=== PATIENT | male | born 1945 | race Caucasian/White ===

== ENCOUNTER 2023-07-22 18:36 | Emergency (ER) | payer MEDICARE, OTHER, SELFPAY ==
[2023-07-22] VITALS (8 sets, daily range): BP systolic 92–116; BP diastolic 55–65; PULSE 66–87; RESP 18–24; O2SAT 98–100
--- NOTE | ~2023-07-22 | CT_ITS ---
EXAMINATION: CTA brain carotid DATE: 07/22/2023 19:52 INDICATION: Dysarthria. Ataxia. TECHNIQUE: Computed tomographic angiography (CTA) of the head was performed with 100 mL Omnipaque-350 intravenous contrast. CTA of the neck was performed with intravenous contrast. Automated exposure co ntrol and iterative reconstruction technique were employed. The dose-length product was 2193.71 mGy-c m. Maximum intensity projection and volume rendered 3D-reconstructions were created by the [employer] on a separate workstation. COMPARISON: Head CT 07/22/2023 FINDINGS: HEAD CTA: There are infarcts involving the right frontal, parietal, and occipital lobes and right ins wali. There is no intracranial hemorrhage or abnormal mass lesion. The ventricles are normal in size. There are likely changes of ocular lens replacement surgeries. There is mild mucosal thickening in th e ethmoid sinuses. The mastoid air cells are normal. Right vertebral artery is dominant. There is no significant stenosis of basilar artery or the posterior cerebral arteries. The posterior communicatin g arteries are normal. There is no significant stenosis of the intracranial internal carotid arteries or anterior or middle cerebral arteries. Anterior communicating artery is normal. There is no aneury sm. NECK CTA: There is mild scarring at the lung apices. There are no pathologically enlarged lymph nodes . There is no significant stenosis of the vertebral arteries. There is plaque in the proximal interna l carotid arteries. There is 0% stenosis of the proximal right internal carotid artery relative to no rmal distal artery lumen diameter (NASCET criteria). There is 0% stenosis of the proximal left physician internist al carotid artery relative to normal distal artery lumen diameter. There is severe cervical spondylos is. IMPRESSION: 1. Infarcts involving the right frontal, parietal, and occipital lobes and right insula in the expect ed distribution of right middle cerebral artery, likely acute or subacute. 2. No aneurysm or significant intracranial arterial stenosis. 3. 0% stenosis of the proximal internal carotid arteries relative to normal distal artery lumen diame ters (NASCET criteria). Reviewed, dictated and finalized at location E. IMPRESSION: 1. Infarcts involving the right frontal, parietal, and occipital lobes and righ t insula in the expected distribution of right middle cerebral artery, likely a cute or subacute. 2. No aneurysm or significant intracranial arterial stenosis. 3. 0% stenosis of the proximal internal carotid arteries relative to normal dis mani artery lumen diameters (NASCET criteria).
--- NOTE | ~2023-07-22 | CT_ITS ---
EXAMINATION: CT brain wo con DATE: 07/22/2023 18:49 INDICATION: Left-sided deficits. Cerebral vascular accident. TECHNIQUE: Computed tomography (CT) of the head was performed without intravenous contrast. The mA wa s adjusted according to patient size. Iterative reconstruction technique was employed. The dose-lengt h product was 681.00 mGy-cm. COMPARISON: None FINDINGS: There are infarcts involving the right frontal, parietal, and occipital lobes and right ins wali. There is no intracranial hemorrhage or abnormal mass lesion. The ventricles are normal in size. There are likely changes of ocular lens replacement surgeries. There is mild mucosal thickening ethmo id sinuses. The mastoid air cells are normal. IMPRESSION: 1. Infarcts involving the right frontal, parietal, and occipital lobes and right insula, likely acute or subacute. Reviewed, dictated and finalized at location E. IMPRESSION: 1. Infarcts involving the right frontal, parietal, and occipital lobes and righ t insula, likely acute or subacute.
--- NOTE | ~2023-07-22 | XR_ITS ---
EXAMINATION: XR chest 1V portable DATE: 07/22/2023 19:15 INDICATION: Cough and congestion. TECHNIQUE: A single frontal view of the chest was obtained. COMPARISON: None. FINDINGS: There is no pneumonia, pleural effusion, or pneumothorax. The heart size is normal. There i s an electronic implant overlying left chest wall. IMPRESSION: 1. No acute cardiopulmonary disease. Reviewed, dictated and finalized at location E.
--- NOTE | 2023-07-22 18:40 | ED.NEUROSD ---
HPI - Neuro Symptoms/Deficit General Chief Complaint: Suspected CVA Stated Complaint: CODE CVA Time Seen by Provider: 07/22/23 18:38 History of Present Illness HPI Narrative: Patient is a 77-year-old male presenting as code stroke. 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 He had left-sided deficits with residual dysarthria and he was discharged to acute rehab. Today he was noted to possibly have slightly worsened slurred speech and appeared unsteady while walking so EMS was called. On arrival, patient is A&O x4. His only complaint is nasal congestion. States that his speech sounds the same as it has since his stroke. Denies any new deficits. Denies any pain. Related Data Home Medications Medication Instructions Recorded Confirmed acetaminophen 325 mg tablet 325 mg PO PRN PRN Pain (Scale 07/19/23 07/23/23 (Tylenol) Score 4-6) aspirin 81 mg tablet 81 mg PO DAILY 07/23/23 07/23/23 atorvastatin 40 mg tablet 40 mg PO HS 07/23/23 07/23/23 cetirizine 10 mg tablet (Zyrtec) 10 mg PO DAILY 07/23/23 07/23/23 cyproheptadine 4 mg tablet 4 mg PO Q8H 07/23/23 07/23/23 enoxaparin 40 mg/0.4 mL 40 mg subcut DAILY 07/23/23 07/23/23 subcutaneous syringe (Lovenox) guaifenesin 200 mg/5 mL oral syrup 200 mg PO DAILY 07/23/23 07/23/23 hydroxyzine HCl 50 mg tablet 50 mg PO PRN 07/23/23 07/23/23 melatonin 3 mg tablet 3 mg PO HS 07/23/23 07/23/23 sennosides 8.6 mg-docusate sodium 1 tablet PO HS 07/23/23 07/23/23 50 mg tablet (Senna with Docusate Sodium) Allergies Allergy/AdvReac Type Severity Reaction Status Date / Time No Known Allergies Allergy Verified 07/24/23 11:29 Review of Systems Review of Systems: All systems reviewed & are unremarkable except as noted in HPI and below PMFSH Past Medical History Medical History (Updated 07/26/23 @ 08:47 by Carlitos Perez MD) Anemia CVA (cerebral vascular accident) Duodenal ulcer hemorrhage Social History Social History Smoking status: Never smoker Alcohol intake: unknown Drinks per week: 0 Substance use: unknown Substance use type: does not use Spiritual care concerns: No Exam Narrative: GENERAL: Well-appearing, in no acute distress. Pleasant and cooperative HEAD: Normocephalic, atraumatic. EYES: PERRLA and EOMI. ENT: Nares clear, no rhinorrhea or epistaxis. Mucous membranes moist. NECK: Supple. CHEST: No respiratory distress. HEART: Regular rate and rhythm ABDOMEN: Soft, nondistended EXTREMITIES: No edema. SKIN: Warm, dry, no rash. NEURO: Alert and oriented x4, left-sided facial droop present with slight dysarthria, 2 out of 5 strength left upper extremity, 5 out of 5 strength in all other extremities. PSYCH: Normal mood and affect. Course Vital Signs Vital signs: Vital Signs Pulse Rate 86 07/22/23 18:51 Respiratory Rate 18 07/22/23 18:51 Blood Pressure 92/62 L 07/22/23 18:51 Pulse Oximetry 100 07/22/23 18:51 Oxygen Delivery Room Air 07/22/23 18:51 Pulse Rate 80 07/22/23 22:59 Respiratory Rate 21 H 07/22/23 22:59 Blood Pressure 116/59 L 07/22/23 22:59 Pulse Oximetry 100 07/22/23 22:59 Oxygen Delivery Room Air 07/22/23 18:51 MDM - Neuro Symptoms/Deficit MDM Narrative Medical decision making narrative: Patient is a 77-year-old male presenting with possible worsening dysarthria in the setting of a recent stroke. Patient tells me that he does not notice any new deficits. States that his speech sounds the same as it has. He is alert, oriented x4. Responding appropriately. CT brain with subacute versus acute right parietal, frontal and occipital, right insular infarcts. I spoke with Dr. Roland with [facility] stroke department and he states that this is consistent with the imaging the patient had 3 days ago prior to discharge. States that what we are seeing is likely evolution o
[2023-07-22 19:22] LABS: Basophils Percent Auto 0.3 % (0.2-1.2); Eosinophils Absolute Auto 0.1 K/mm3 (0-0.3); Eosinophils Percent Auto 0.5 % (0-4.4); Hematocrit 38.1 % (42.0-52.0); Hemoglobin 12.5 g/dL (14.0-18.0); Immature Granulocyte Absolute 0.15 K/mm3 (0.00-0.031); Lymphocytes Absolute Auto 1.49 K/mm3 (0.9-3.2); Lymphocytes Percent Auto 10.2 % (18.3-44.2); Mean Corpuscular HGB Conc 32.8 g/dl (32-36); Mean Corpuscular Hemoglobin 32.3 pg (26-34); Mean Corpuscular Volume 98.4 fl (80-100); Mean Platelet Volume 9.7 fl (7.4-10.4); Monocytes Absolute Auto 1.2 K/mm3 (0.1-0.6); Monocytes Percent Auto 8.4 % (2.6-8.5); Neutrophils Absolute Auto 11.6 K/mm3 (1.3-6.7); Neutrophils Percent Auto 79.6 % (45.5-73.1); Platelet Count Result 322 k/mm3 (150-375); Red Blood Count 3.87 M/mm3 (4.6-6.20); Red Cell Distribution Width 11.8 % (11.5-14.5); White Blood Count 14.6 K/mm3 (4.5-10.0)
[2023-07-22 19:32] LABS: Alanine Aminotransferase 51 U/L (6-50); Albumin Level 3.1 g/dL (3.5-5.1); Alkaline Phosphatase 61 U/L (38-126); Anion Gap 8 mmol/L (8-16); Aspartate Amino Transferase 39 U/L (17-59); Bilirubin,Total 1.5 mg/dL (0.2-1.3); Blood Urea Nitrogen 46 mg/dL (9-20); Calcium 8.4 mg/dL (8.4-10.2); Carbon Dioxide 22 mmol/L (22-30); Chloride 104 mmol/L (98-107); Estimated CRCL calculation 74 ml/min; Estimated Glomerular Filt Rate > 60; Glucose 131 mg/dL (65-110); Potassium 4.6 mmol/L (3.4-5.0); Sodium 134 mmol/L (137-145)
[2023-07-22 19:55] LABS: Influenza A QL RT-PCR Negative (Negative); Influenza B QL RT-PCR Negative (Negative); RSV RNA, RT-PCR Negative (Negative); SARS-CoV-2 RNA PCR Negative (Negative)
[2023-07-22 20:43] LABS: Appearance Urine Clear (Clear); Bacteria Urine None Seen /hpf; Bilirubin Urine Negative (Negative); Blood Urine Negative (Negative); Color Urine Yellow (Yellow); Glucose Urine UA Negative (Negative); Hyaline Casts Urine Present /lpf; Ketones Urine Trace mg/dL (Negative); Leukocyte Esterase Ur Negative LEU/UL (Negative); Nitrate Urine Negative (Negative); Protein Urine 1+ mg/dL (Negative); Specific Grav Ur 1.056 (1.001-1.035); Squamous Epithelial Cell Urine None seen /hpf (Few); WBC Urine 0-5 /hpf
[2023-07-22 20:44] LABS: Add Urine Microscopic? YES
--- NOTE | 2023-07-22 23:06 | PC.NURSE ---
EMS arrived to transport pt, bedside report given. pt A&Ox4 during transport out of ED.
== END 2023-07-22 23:07 ==
PROVIDERS: Emergency Provider Emergency Medicine
DX: I63.9 Cerebral infarction, unspecified (principal); I69.322 Dysarthria following cerebral infarction; Z20.822 Contact with and (suspected) exposure to COVID-19
CPT/HCPCS: 36415; 70450; 70496; 70498; 71045; 80053; 81001; 85025; 87637; 99284; Q9967

== ENCOUNTER 2023-07-23 15:01 | Inpatient (IN) | payer MEDICARE, OTHER, SELFPAY ==
[2023-07-23] VITALS (9 sets, daily range): BP systolic 73–127; BP diastolic 44–66; PULSE 75–95; RESP 16–24; TEMP 36.2–36.6; O2SAT 98–100; BMI 25.9
--- NOTE | ~2023-07-23 | US_ITS ---
EXAMINATION: US carotid duplex BI DATE: 07/24/2023 00:17 INDICATION: Syncope TECHNIQUE: Grayscale, color Doppler, and pulsed Doppler images of the cervical carotid arteries were obtained. The degree of vessel stenosis is placed in one of the following categories: normal, <50%, 5 0-69%, >=70% but less than near-occlusion, near-occlusion, or total occlusion. Note that percent sten osis relative to normal distal artery lumen diameter is indirectly measured from velocity measurement s as described by Victor Manuel, et al. Radiology 2003; 229:340-346. COMPARISON: None. FINDINGS: RIGHT: The right common carotid artery (CCA) peak systolic velocity (PSV) is 105 cm/s. The right internal ca rotid artery (ICA) PSV is 118 cm/s. The right ICA end-diastolic velocity (EDV) is 35 cm/s. The right ICA/CCA PSV ratio is 1.1. Grayscale and color Doppler images yield an estimate of <50% diameter reduc tion from plaque in the ICA. The external carotid artery (ECA) PSV is 79 cm/s. There is antegrade ken w in the right vertebral artery. LEFT: The left CCA PSV is 95 cm/s. The left ICA PSV is 100 cm/s. The left ICA EDV is 24 cm/s. The left ICA/ CCA PSV ratio is 1.1. Grayscale and color Doppler images yield an estimate of <50% diameter reduction from plaque in the ICA. The ECA PSV is 77 cm/s. There is antegrade flow in the left vertebral artery . IMPRESSION: 1. <50% stenosis in the right internal carotid artery. 2. <50% stenosis in the left internal carotid artery. Reviewed, dictated and finalized at location A.
--- NOTE | 2023-07-23 15:15 | ECG_ITS ---
Measurements Intervals [place] Rate: 96 P: 61 LA: 126 QRS: 36 QRSD: 87 T: 64 QT: 362 QTc: 457 Interpretive Statements SINUS RHYTHM NONSPECIFIC ST & T-WAVE ABNORMALITY ABNORMAL ECG NO PREVIOUS ECG AVAILABLE FOR COMPARISON Electronically Signed On 07-24-2023 9:13:44 CDT by Rosalio Nicolas M.D.
[2023-07-23 15:35] LABS: Basophils Absolute Auto 0.1 K/mm3 (0.0-0.1); Basophils Percent Auto 0.3 % (0.2-1.2); Eosinophils Percent Auto 0.1 % (0-4.4); Hematocrit 25.4 % (42.0-52.0); Hemoglobin 8.5 g/dL (14.0-18.0); Immature Granulocyte Absolute 0.32 K/mm3 (0.00-0.031); Immature Granulocyte Percent A 1.7 % (0-0.5); Lymphocytes Absolute Auto 1.49 K/mm3 (0.9-3.2); Lymphocytes Percent Auto 7.9 % (18.3-44.2); Mean Corpuscular HGB Conc 33.5 g/dl (32-36); Mean Corpuscular Hemoglobin 33.2 pg (26-34); Mean Corpuscular Volume 99.2 fl (80-100); Mean Platelet Volume 9.5 fl (7.4-10.4); Monocytes Percent Auto 5.2 % (2.6-8.5); Neutrophils Absolute Auto 15.9 K/mm3 (1.3-6.7); Neutrophils Percent Auto 84.8 % (45.5-73.1); Platelet Count Result 367 k/mm3 (150-375); Red Blood Count 2.56 M/mm3 (4.6-6.20); Red Cell Distribution Width 11.9 % (11.5-14.5); White Blood Count 18.8 K/mm3 (4.5-10.0)
[2023-07-23 15:45] LABS: INR 1.2; Prothrombin Time 15.9 Seconds (11.1-14.7)
--- NOTE | 2023-07-23 15:45 | PC.NURSE ---
Dr. Bonilla informed of hypotension. IV fluids connected to pressure bag,pt placed in [place]
[2023-07-23 15:46] LABS: Partial Thromboplastin Time 29.3 SECONDS (22.3-36.8)
--- NOTE | 2023-07-23 15:52 | ED.GIBLEED ---
HPI - GI Bleed General Chief complaint: GI Bleed Stated complaint: syncopal, gi bleed Time Seen by Provider: 07/23/23 15:22 Source: patient, EMS, RN notes reviewed and old records reviewed Mode of arrival: EMS History of Present Illness HPI Narrative: This is a 77 year old male with history of recent left hemiplegic CVA [facility]. Nursing reports patient has been having syncopal episodes today . He was found to have black tarry stools this afternoon. Nursing reports patient had large dark blood stool on arrival. Patient denies chest pain, shortness of breath, abdominal pain. Related Data Home Medications Medication Instructions Recorded Confirmed acetaminophen 325 mg tablet 325 mg PO PRN PRN Pain (Scale 07/19/23 07/23/23 (Tylenol) Score 4-6) aspirin 81 mg tablet 81 mg PO DAILY 07/23/23 07/23/23 atorvastatin 40 mg tablet 40 mg PO HS 07/23/23 07/23/23 cetirizine 10 mg tablet (Zyrtec) 10 mg PO DAILY 07/23/23 07/23/23 cyproheptadine 4 mg tablet 4 mg PO Q8H 07/23/23 07/23/23 enoxaparin 40 mg/0.4 mL 40 mg subcut DAILY 07/23/23 07/23/23 subcutaneous syringe (Lovenox) guaifenesin 200 mg/5 mL oral syrup 200 mg PO DAILY 07/23/23 07/23/23 hydroxyzine HCl 50 mg tablet 50 mg PO PRN 07/23/23 07/23/23 melatonin 3 mg tablet 3 mg PO HS 07/23/23 07/23/23 sennosides 8.6 mg-docusate sodium 1 tablet PO HS 07/23/23 07/23/23 50 mg tablet (Senna with Docusate Sodium) Allergies Allergy/AdvReac Type Severity Reaction Status Date / Time No Known Allergies Allergy Verified 07/22/23 19:02 Review of Systems Constitutional: Constitutional: Denies weakness Cardiovascular: Cardiovascular: Denies syncope, Denies rapid heart rate, Denies irregular heart rhythm, Denies leg edema and Denies dyspnea Respiratory: Respiratory: Denies chest congestion, Denies hemoptysis, Denies excessive phlegm production and Denies dyspnea Gastrointestinal: Gastrointestinal: Denies abdominal pain, Reports hematochezia, Denies diarrhea and Denies vomiting Genitourinary: Genitourinary: Denies hematuria, Denies dysuria, Denies penile discharge and Denies testicular pain Musculoskeletal: Musculoskeletal: Denies joint swelling, Denies loss of height and Denies muscle weakness Neurologic: Denies syncope, Denies focal weakness and Denies weakness PMFSH Past Medical History Medical History (Updated 07/23/23 @ 22:33 by Talisha Bonilla MD) Anemia CVA (cerebral vascular accident) Social History Social History Smoking status: Never smoker Alcohol intake: unknown Drinks per week: 0 Substance use: unknown Substance use type: does not use Spiritual care concerns: No Exam Const: General: alert and ill appearing Orientation/consciousness: patient oriented x3 HENMT: Head: normal to inspection Eyes: EOM: EOMs intact bilaterally Chest: Other: left chest ecchymosis Resp: Effort & Inspection: normal respiratory effort Auscultation: clear to auscultation bilaterally Cardio: Rate: regular rate Rhythm: regular rhythm Heart sounds: Murmur heart sound present GI: Other: soft, nontender, nondistended Skin: General skin exam: pallor Neuro: General: patient oriented x3 and moves all extremities Other: speech slurred. left side weakness Psych: Mental Status: mental status grossly normal Affect: normal affect Attitude: cooperative Course Consultations Consultation #1: Dr Perez accepts patient to ICU Date: 07/23/23 Time: 16:20 Consultation #2: I spoke with Dr. carl with GI. He states to make patient NPO. I discussed if abdominal imaging would be beneficial . he did not think imaging needed at this time Date: 07/23/23 Time: 16:30 Consultation #3: I discussed case with Dr. figueroa with hospitalist. He accepts patient to service in ICU for GI bleeding Date: 07/23/23 Time: 16:45 Vital Signs Vital s
[2023-07-23 15:55] LABS: Alanine Aminotransferase 37 U/L (6-50); Albumin Level 2.5 g/dL (3.5-5.1); Alkaline Phosphatase 52 U/L (38-126); Anion Gap 8 mmol/L (8-16); Aspartate Amino Transferase 28 U/L (17-59); Bilirubin,Total 1.1 mg/dL (0.2-1.3); Blood Urea Nitrogen 59 mg/dL (9-20); Calcium 8.1 mg/dL (8.4-10.2); Carbon Dioxide 22 mmol/L (22-30); Chloride 105 mmol/L (98-107); Estimated CRCL calculation 66 ml/min; Estimated Glomerular Filt Rate > 60; Glucose 148 mg/dL (65-110); Potassium 4.6 mmol/L (3.4-5.0); Sodium 135 mmol/L (137-145)
[2023-07-23] MEDS: SODIUM CHLORIDE 0.9% IV 1,000 ML 999 ML IV CONT ×2 (15:58→17:39)
[2023-07-23] MEDS: PANTOPRAZOLE SODIUM IV 80 MG in SODIUM CHLORIDE 0.9% IV 500 ML 50 MG IV CONT (15:59)
[2023-07-23] MEDS: PANTOPRAZOLE SODIUM IV 40 MG VIAL 80 MG IV PUSH (16:00)
[2023-07-23 16:04] LABS: Alveolar/Arterial O2 Gradient 14.6 mmHg; Base Excess ABG -1.9 mEq/l (+/-2.0); Carboxyhemoglobin 0.5 % THb (0-2.0); Fractional Inspired Oxygen 21 %; HCO3 ABG 21.3 mEq/l (22.0-26.0); Methemoglobin ABG 0.2 %THb (0-1.5); Oxygen Content ABG 10.7 %vol (16.0-22.0); Oxyhemoglobin 96.1 % THb (90.0-100.0); PCO2 ABG 29.5 mmHg (35.0-45.0); PO2 ABG 99.8 mmHg (80.0-100.0); PO2 FiO2 Ratio Arterial Blood 4.75 %; Reduced Hemoglobin 3.2 %THb (0-5.0); pH ABG 7.476 (7.350-7.450)
[2023-07-23 16:06] LABS: Device ROOM AIR; Modified Allen's Test Pass; Site Drawn LEFT BRACHIAL; Total Hemoglobin 7.8 g/dL (12.0-18.0)
--- NOTE | 2023-07-23 16:45 | PC.NURSE ---
O Negative PRBC infusing without difficulty. Pt states to RN I'm No Code, don't put any tubes in me Dr. Bonilla informed.
--- NOTE | 2023-07-23 18:08 | PC.NURSE ---
[facility] spoke with pts
--- NOTE | 2023-07-23 19:00 | PM.IMHP ---
H&P: HPI History of Present Illness Date/Time: 07/23/23 19:00 Chief Complaint: Black stools Narrative: Patient is a poor historian, history is taken from patient and ER physician 77 years old gentleman with history of CVA with residual left-sided weakness slurred speech, per ED from rehab because of black stools. Per residential report, patient was found have black stools today and also had episode of syncope. And therefore patient was brought to ED for evaluation. In the ED, nurse found patient had a large black stool, and patient was hypotensive, systolic blood pressure about 40, and patient was also found have anemia, hemoglobin 8.5, hemoglobin 12.5 on July 22 and 13.6 on July 20, 2023. Patient will also have hyponatremia of 134, BUN 59, creatinine 1.0. Patient received fluid resuscitation in the ED. patient also received Protonix bolus and a drip. One pack RBC is ordered. ER physician also consulted GI and manager human resources, patient is admitted to ICU for close monitoring. Review of Systems Review of Systems: ROS negative except above PMFSH Past Medical History Medical History (Updated 07/23/23 @ 22:33 by Talisha Bonilla MD) Anemia CVA (cerebral vascular accident) Social History Social History Smoking status: Never smoker Alcohol intake: former Drinks per week: 0 Substance use type: does not use Spiritual care concerns: No Meds Home Medications and Allergies Home Medications Medication Instructions Recorded Confirmed Type acetaminophen 325 mg tablet 325 mg PO PRN PRN Pain (Scale 07/19/23 07/23/23 History (Tylenol) Score 4-6) aspirin 81 mg tablet 81 mg PO DAILY 07/23/23 07/23/23 History atorvastatin 40 mg tablet 40 mg PO HS 07/23/23 07/23/23 History cetirizine 10 mg tablet (Zyrtec) 10 mg PO DAILY 07/23/23 07/23/23 History cyproheptadine 4 mg tablet 4 mg PO Q8H 07/23/23 07/23/23 History enoxaparin 40 mg/0.4 mL 40 mg subcut DAILY 07/23/23 07/23/23 History subcutaneous syringe (Lovenox) guaifenesin 200 mg/5 mL oral syrup 200 mg PO DAILY 07/23/23 07/23/23 History hydroxyzine HCl 50 mg tablet 50 mg PO PRN 07/23/23 07/23/23 History melatonin 3 mg tablet 3 mg PO HS 07/23/23 07/23/23 History sennosides 8.6 mg-docusate sodium 1 tablet PO HS 07/23/23 07/23/23 History 50 mg tablet (Senna with Docusate Sodium) Allergies Allergy/AdvReac Type Severity Reaction Status Date / Time No Known Allergies Allergy Verified 07/22/23 19:02 Vital Signs Vital Signs - 24 hr 07/23/23 15:17 07/23/23 15:43 07/23/23 16:34 Temperature 97.5 F L 97.1 F L 97.1 F L Pulse Rate 95 95 86 Respiratory Rate 24 H 23 H 18 Blood Pressure 73/44 L 77/44 L 106/66 Pulse Oximetry 98 Oxygen Delivery Room Air 07/23/23 16:58 07/23/23 16:59 07/23/23 17:59 Temperature 97.7 F 97.7 F 97.9 F Pulse Rate 92 92 85 Respiratory Rate 18 18 16 Blood Pressure 87/52 L 87/52 L 127/62 Pulse Oximetry 100 100 98 Oxygen Delivery 07/23/23 18:06 Temperature 97.8 F Pulse Rate 83 Respiratory Rate 20 Blood Pressure 127/62 Pulse Oximetry 98 Oxygen Delivery Exam Narrative: GENERAL: Pleasant, in no acute distress. Well-nourished. - EYES: EOMI. Anicteric. - HENT: Dry mucous membranes. - LUNGS: Clear to auscultation bilaterally, no wheezing, rhonchi, or rales. - CARDIOVASCULAR: Regular rate and rhythm. No murmur. No JVD. - ABDOMEN: Soft, non-tender and non-distended. No palpable masses. - EXTREMITIES: No edema. Peripheral pulses 2+. Non-tender. - NEUROLOGIC: No focal neurological deficits. Slurred speech due to Jennifer CVA, stress 4/5 of left hand and leg. - PSYCHIATRIC: Awake, Alert and oriented x 3. Appropriate mood and affect. - SKIN: No rashes or lesions. Warm. - LYMPH: No cervical lymphadenopathy. H&P: Results Labs Labs: Short CBC 07/23/23 Range/Units 15:27 WBC 18.8 H (4.5-10.0) K/mm3 Hgb 8.5 L (14.0-18.0) g
[2023-07-23 20:30] LABS: Hematocrit 30.4 % (42.0-52.0); Hemoglobin 9.8 g/dL (14.0-18.0)
[2023-07-23 20:37] LABS: Basophils Absolute Auto 0.1 K/mm3 (0.0-0.1); Basophils Percent Auto 0.3 % (0.2-1.2); Hematocrit 30.7 % (42.0-52.0); Hemoglobin 9.8 g/dL (14.0-18.0); Immature Granulocyte Absolute 0.22 K/mm3 (0.00-0.031); Immature Granulocyte Percent A 1.1 % (0-0.5); Lymphocytes Absolute Auto 1.58 K/mm3 (0.9-3.2); Lymphocytes Percent Auto 7.7 % (18.3-44.2); Mean Corpuscular HGB Conc 31.9 g/dl (32-36); Mean Corpuscular Hemoglobin 32.5 pg (26-34); Mean Corpuscular Volume 101.7 fl (80-100); Mean Platelet Volume 9.6 fl (7.4-10.4); Monocytes Absolute Auto 1.1 K/mm3 (0.1-0.6); Monocytes Percent Auto 5.5 % (2.6-8.5); Neutrophils Absolute Auto 17.6 K/mm3 (1.3-6.7); Neutrophils Percent Auto 85.4 % (45.5-73.1); Platelet Count Result 267 k/mm3 (150-375); Red Blood Count 3.02 M/mm3 (4.6-6.20); Red Cell Distribution Width 13.2 % (11.5-14.5); White Blood Count 20.6 K/mm3 (4.5-10.0)
[2023-07-23 20:55] LABS: Anisocytosis 1+ (NORMAL); Schistocytes None Seen (NORMAL)
[2023-07-23 20:56] LABS: Burr Cells 1+ (NORMAL); Platelet Estimate Adequate (Adequate)
[2023-07-23 21:28] LABS: Anion Gap 12 mmol/L (8-16); Blood Urea Nitrogen 62 mg/dL (9-20); Carbon Dioxide 16 mmol/L (22-30); Chloride 108 mmol/L (98-107); Estimated CRCL calculation 74 ml/min; Estimated Glomerular Filt Rate > 60; Glucose 91 mg/dL (65-110); Potassium 4.8 mmol/L (3.4-5.0); Sodium 136 mmol/L (137-145)
[2023-07-23] MEDS: ACETAMINOPHEN 325 MG TABLET 650 MG PO (22:26)
[2023-07-24] VITALS (21 sets, daily range): BP systolic 78–116; BP diastolic 40–63; PULSE 57–78; RESP 18–29; TEMP 36.3–37; O2SAT 96–100
[2023-07-24 01:54] LABS: Hematocrit 25.4 % (42.0-52.0); Hemoglobin 8.5 g/dL (14.0-18.0)
[2023-07-24 02:06] LABS: Alanine Aminotransferase 38 U/L (6-50); Albumin Level 2.6 g/dL (3.5-5.1); Alkaline Phosphatase 51 U/L (38-126); Anion Gap 6 mmol/L (8-16); Aspartate Amino Transferase 31 U/L (17-59); Bilirubin,Total 1.4 mg/dL (0.2-1.3); Blood Urea Nitrogen 58 mg/dL (9-20); Calcium 7.9 mg/dL (8.4-10.2); Carbon Dioxide 23 mmol/L (22-30); Chloride 108 mmol/L (98-107); Estimated CRCL calculation 74 ml/min; Estimated Glomerular Filt Rate > 60; Glucose 107 mg/dL (65-110); Potassium 4.3 mmol/L (3.4-5.0); Sodium 137 mmol/L (137-145)
[2023-07-24] MEDS: PANTOPRAZOLE SODIUM IV 80 MG in SODIUM CHLORIDE 0.9% IV 500 ML 50 MG IV CONT ×2 (03:47→15:43)
--- NOTE | 2023-07-24 08:00 | ECHO_ITS ---
Patient Info Name: Edilberto Ellison Age: 77 years : 1945 Gender: Male Ht: 71 in Wt: 179 lbs BSA: 2.02 m2 HR: 66 bpm BP: 102 / 54 mmHg Heart Rhythm: Sinus Rhythm Technical Quality: Fair Exam Date: 07/24/2023 8:18 AM Exam Location: [facility] Pulmonary Patient Status: Inpatient Admit Date: 07/23/2023 Staff Ordering Physician: Brandyn Healy MD Electrical Line Splicer: Diamante Devi RDCS Attending Provider: Kalia Miller MD Exam Type: CA echo dop color flow w con Study Info Indications - dizziness Complete two-dimensional, color flow and Doppler transthoracic echocardiogram is performed with contrast to opacify the left ventricle and to improve the deliniation of the left ventricle endocardial borders. Contrast/Agitated Saline Contrast/Ag. Saline: Definity Amount: 2.00 ml Administered By: Diamante Devi RDCS Existing IV Access: Yes IV Access Condition: patent with no signs of infiltration Summary 1. Left ventricular chamber dimension is normal. 2. There is mildly increased left ventricular wall thickness. 3. Left ventricular systolic function is hyperdynamic, estimated at 65-70%. 4. The left ventricular diastolic function is grade I diastolic dysfunction. 5. There is mild tricuspid valve regurgitation. Left Ventricle Left ventricular chamber dimension is normal. Left ventricular systolic function is hyperdynamic, estimated at 65-70%. There is mildly increased left ventricular wall thickness. The left ventricular diastolic function is grade I diastolic dysfunction. Right Ventricle Right ventricular chamber dimension is normal. Right ventricular systolic function is normal. Left Atria Left atrial chamber dimension is normal. Right Atria Right atrial chamber dimension is normal. Atrial Septum Intact interatrial septum visualized by color flow imaging. Aortic Valve The aortic valve is probable trileaflet. There is mild aortic valve sclerosis. There is no aortic valve stenosis. There is trace aortic valve regurgitation. Pulmonic Valve The pulmonic valve is normal. There is no pulmonic valve stenosis. There is trace pulmonic regurgitation. Mitral Valve The mitral valve has thickened leaflets. There is no mitral valve stenosis. There is trace mitral valve regurgitation. Tricuspid Valve The tricuspid valve leaflets are normal. There is no significant tricuspid valve stenosis. There is mild tricuspid valve regurgitation. No pulmonary hypertension, estimated pulmonary arterial systolic pressure is 27 mmHg. Pericardium/Pleural The pericardium appears normal. There is no pericardial effusion. Aorta The aortic root size at the sinus of Valsalva is normal. Left Ventricular Outflow Tract Name Value Normal LVOT 2D LVOT Diameter 2.01 cm LVOT Doppler LVOT Peak Gradient 4 mmHg LVOT Mean Gradient 2 mmHg LVOT VTI 17.16 cm LVOT VTI/AV VTI Ratio 0.99 LVOT Stroke Volume 54.52 ml LVOT CO 3.76 l/min LVOT CI 1.86 L/min/m2 Pul
[2023-07-24 08:43] LABS: Hematocrit 22.4 % (42.0-52.0); Hemoglobin 7.6 g/dL (14.0-18.0); Mean Corpuscular HGB Conc 33.9 g/dl (32-36); Mean Corpuscular Hemoglobin 32.8 pg (26-34); Mean Corpuscular Volume 96.6 fl (80-100); Mean Platelet Volume 9.4 fl (7.4-10.4); Platelet Count Result 257 k/mm3 (150-375); Red Blood Count 2.32 M/mm3 (4.6-6.20); Red Cell Distribution Width 13.4 % (11.5-14.5); White Blood Count 14.7 K/mm3 (4.5-10.0)
[2023-07-24] MEDS: PERFLUTREN LIPID MICROSPHERES 1.5 ML VIAL DILUTED TO 10 ML TOTAL VOLUME IV PUSH (08:50)
--- NOTE | 2023-07-24 09:00 | WPDCNINT ---
Assessment and Plan Assessment and plan (1) Upper GI bleed: Code(s): K92.2 - Gastrointestinal hemorrhage, unspecified Status: Acute Assessment and Plan: I suspect secondary to peptic ulcer disease or gastritis or Michelle-Wheatley tear Patient is currently NPO and GI has been consulted and plan for EGD today He has received 1 unit of PRBC transfusion Continue q.6 hours serial hemoglobin monitoring and transfuse as needed Continue PPI infusion until EGD is done Aspirin and Lovenox has been discontinued (2) Anemia: Code(s): D64.9 - Anemia, unspecified Status: Acute Assessment and Plan: Secondary to upper GI bleed Management as above patient is also receiving iron (3) CVA (cerebral vascular accident): Code(s): I63.9 - Cerebral infarction, unspecified Status: Acute Assessment and Plan: Patient had a recent CVA on 07/13 and 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 Patient was treated at [facility] and was then discharged to [facility] where he has been working with physical therapy. Patient has been on aspirin which has been on hold this time due to GI bleed He is on statin Repeat echo and carotid Dopplers were ordered at the time of admission are being done (4) Hypotension: Code(s): I95.9 - Hypotension, unspecified Status: Acute Assessment and Plan: Patient had hypotension on arrival likely secondary to volume loss. Improved with IV fluids Monitor (5) Syncope: Code(s): R55 - Syncope and collapse Status: Acute Assessment and Plan: Although etiology is not fully clear I but I suspect that patient's syncope was likely secondary to GI bleed and hypotension No recurrence since coming to hospital Carotid Dopplers were done this morning and showed IMPRESSION: 1. <50% stenosis in the right internal carotid artery. 2. <50% stenosis in the left internal carotid artery. Echo has been done and report is pending EKG shows normal sinus rhythm and currently he is in sinus rhythm Continue telemetry monitoring PT evaluation once GI bleeding has been managed Plan DVT prophylaxis -SCDs Stress ulcer prophylaxis -PPI Nutrition -NPO Code Status -patient is DNR Total Critical Care Time - 30 minutes Due to a high probability of clinically significant, life threatening deterioration, the patient required my highest level of preparedness to intervene emergently and I personally spent this critical care time directly and personally managing the patient. This critical care time included obtaining a history; examining the patient; pulse oximetry; ordering and review of studies; arranging urgent treatment with development of a management plan; evaluation of patient's response to treatment; frequent reassessment; and discussions with other providers. It was exclusive of separately billable procedures and treating other patients and teaching time. Please see Assessment and Plan section and the rest of the note for further information on patient assessment and treatment Patient Intake Representative Consult Note Consult date: 07/24/23 Reason for consult: GI bleed HPI: Edilberto Ellison is a 77 year old male with history of recent CVA with residual left-sided weakness slurred speech who was at rehab and was brought to ER because of black stools. Per correction report, patient was found have black stools today and also had episode of syncope.? In the ED, nurse found patient had a large black bowel movement, and patient was hypotensive. Workup showed hemoglobin had dropped to 8.5 from 12.5 on July 22 and 13.6 on July 20, 2023.? Patient will also have hyponatremia of 134, BUN 59, creatinine 1.0.? Patient was given IV fluid bolus in the ED with improvement in blood pressure. He was diagnosed with GI bleed and was given 1 unit PRBC transfusion. GI was consulted and patient was sta
[2023-07-24] MEDS: DEXTROSE 5%/LACTATED RINGERS 1,000 ML 75 ML IV CONT (09:09)
[2023-07-24] MEDS: IRON SUCROSE COMPLEX 100 MG in SODIUM CHLORIDE 0.9% IV 50 ML 220 MG IVPB (09:09)
--- NOTE | 2023-07-24 09:52 | PM.IMPN ---
Progress Note: A&P Assessment and Plan (1) Upper GI bleed: Code(s): K92.2 - Gastrointestinal hemorrhage, unspecified Status: Acute Assessment and Plan: Today's hemoglobin is 7.6 Patient is currently NPO and GI has been consulted and plan for EGD today He has received 1 unit of PRBC transfusion Continue q.6 hours serial hemoglobin monitoring and transfuse as needed Continue PPI infusion until EGD is done Aspirin and Lovenox has been discontinued (2) Anemia: Code(s): D64.9 - Anemia, unspecified Status: Acute Assessment and Plan: Today's hemoglobin is 7.6. Secondary to upper GI bleed Management as above patient is also receiving iron Will monitor closely. 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 Patient was treated at [facility] He was then discharged to [facility] Patient has been on aspirin which has been on hold this time due to GI bleed He is on statin Echo and carotid Dopplers are being done (4) Hypotension: Code(s): I95.9 - Hypotension, unspecified Status: Acute Assessment and Plan: Patient had hypotension on arrival likely secondary to volume loss. Improved with IV fluids Monitor closely. (5) Syncope: Code(s): R55 - Syncope and collapse Status: Acute Assessment and Plan: Although etiology is not fully clear I but I suspect that patient's syncope was likely secondary to GI bleed and hypotension No recurrence since coming to hospital Carotid Dopplers were done this morning and showed IMPRESSION: 1. <50% stenosis in the right internal carotid artery. 2. <50% stenosis in the left internal carotid artery. Echo has been done and report is pending EKG shows normal sinus rhythm and currently he is in sinus rhythm Continue telemetry monitoring PT evaluation once GI bleeding has been managed Plan DVT prophylaxis -SCDs Stress ulcer prophylaxis -PPI Nutrition -NPO Code Status -patient is DNR Subjective Date/time seen: 07/24/23 09:52 Interval history: Patient was seen during morning rounds today. Complained of having generalized weakness. No shortness of breath or chest pain. No nausea or vomiting. Mood stable. Review of Systems Review of Systems: ROS negative except above All systems reviewed & are unremarkable except as noted in HPI and below (HPI) Exam Narrative: GENERAL: Pleasant, in no acute distress. Well-nourished. - EYES: EOMI. Anicteric. - HENT: Dry mucous membranes. - LUNGS: Clear to auscultation bilaterally, no wheezing, rhonchi, or rales. - CARDIOVASCULAR: Regular rate and rhythm. No murmur. No JVD. - ABDOMEN: Soft, non-tender and non-distended. No palpable masses. - EXTREMITIES: No edema. Peripheral pulses 2+. Non-tender. - NEUROLOGIC: No focal neurological deficits. Slurred speech due to Jennifer CVA, stress 4/5 of left hand and leg. - PSYCHIATRIC: Awake, Alert and oriented x 3. Appropriate mood and affect. - SKIN: No rashes or lesions. Warm. - LYMPH: No cervical lymphadenopathy. Objective Data Vital Signs Vital Signs: Vital Signs - 24 hr 07/23/23 15:17 07/23/23 15:43 07/23/23 16:34 Temperature 36.4 C L 36.2 C L 36.2 C L Pulse Rate 95 95 86 Respiratory Rate 24 H 23 H 18 Blood Pressure 73/44 L 77/44 L 106/66 Pulse Oximetry 98 Oxygen Delivery Room Air 07/23/23 16:58 07/23/23 16:59 07/23/23 17:59 Temperature 36.5 C 36.5 C 36.6 C Pulse Rate 92 92 85 Respiratory Rate 18 18 16 Blood Pressure 87/52 L 87/52 L 127/62 Pulse Oximetry 100 100 98 Oxygen Delivery 07/23/23 18:06 07/23/23 20:00 07/23/23 20:00 Temperature 36.6 C 36.6 C Pulse Rate 83 83 75 Respiratory Rate 20 20 20 Blood Pressure 127/62 99/56 L Pulse Oximetry 98 98 100
--- NOTE | 2023-07-24 10:05 | IVDEFINITY ---
Prior to administration of IV Definity the patient was educated on the risks and benefits of the imaging enhancing agent including potential adverse side effects. The patient verbalized understanding. Allergies were verified. No exclusion criteria were identified and at least one of the following inclusion criteria were met: 1) physician request, 2) patient technically difficult to image (per the [place] [employer] guidelines of two or more segments not discernable within the apical view), or 3) questionable left ventricular function. ?
[2023-07-24] MEDS: LACTATED RINGERS 1,000 ML 150 ML IV CONT (11:28)
--- NOTE | 2023-07-24 11:54 | WPDANESEPPF ---
Anes - Initial Pre Proc Eval Procedure: Operation Date: 07/24/23 12:45 Proposed Procedures p Esophagogastroduodenoscopy - Ishmael Benjamin MD Date/Time: 07/24/23 11:54 Surgeon: Ervin Miller MD Pre Op Diagnosis: GI Bleeding/ Anemia Patient Data Age: 77 Gender: M Height: 1.8 m Weight: 81.6 kg Last Vital Signs Temp 97.3 F L 07/24/23 11:22 Pulse 64 07/24/23 11:22 Resp 22 H 07/24/23 11:22 BP 99/42 L 07/24/23 11:22 Pulse Ox 100 07/24/23 11:22 O2 Del Method Room Air 07/24/23 11:22 Allergies Allergy/AdvReac Type Severity Reaction Status Date / Time No Known Allergies Allergy Verified 07/24/23 11:29 Home Medications Medication Instructions Recorded Confirmed Type acetaminophen 325 mg tablet 325 mg PO PRN PRN Pain (Scale 07/19/23 07/23/23 History (Tylenol) Score 4-6) aspirin 81 mg tablet 81 mg PO DAILY 07/23/23 07/23/23 History atorvastatin 40 mg tablet 40 mg PO HS 07/23/23 07/23/23 History cetirizine 10 mg tablet (Zyrtec) 10 mg PO DAILY 07/23/23 07/23/23 History cyproheptadine 4 mg tablet 4 mg PO Q8H 07/23/23 07/23/23 History enoxaparin 40 mg/0.4 mL 40 mg subcut DAILY 07/23/23 07/23/23 History subcutaneous syringe (Lovenox) guaifenesin 200 mg/5 mL oral syrup 200 mg PO DAILY 07/23/23 07/23/23 History hydroxyzine HCl 50 mg tablet 50 mg PO PRN 07/23/23 07/23/23 History melatonin 3 mg tablet 3 mg PO HS 07/23/23 07/23/23 History sennosides 8.6 mg-docusate sodium 1 tablet PO HS 07/23/23 07/23/23 History 50 mg tablet (Senna with Docusate Sodium) Laboratory Tests 07/23/23 07/23/23 07/23/23 15:27 15:50 19:43 WBC 18.8 H K/mm3 20.6 H K/mm3 (4.5-10.0) (4.5-10.0) RBC 2.56 L M/mm3 3.02 L M/mm3 (4.6-6.20) (4.6-6.20) Hgb 8.5 L g/dL 9.8 L g/dL (14.0-18.0) (14.0-18.0) Hct 25.4 L % 30.7 L % (42.0-52.0) (42.0-52.0) MCV 99.2 fl 101.7 H fl (80-100) (80-100) MCH 33.2 pg 32.5 pg (26-34) (26-34) MCHC 33.5 g/dl 31.9 L g/dl (32-36) (32-36) RDW 11.9 % 13.2 % (11.5-14.5) (11.5-14.5) Plt Count 367 k/mm3 267 k/mm3 (150-375) (150-375) MPV 9.5 fl 9.6 fl (7.4-10.4) (7.4-10.4) Immature Gran % (Auto) 1.7 H % 1.1 H % (0-0.5) (0-0.5) Neut % (Auto) 84.8 H % 85.4 H % (45.5-73.1) (45.5-73.1) Lymph % (Auto) 7.9 L % 7.7 L % (18.3-44.2) (18.3-44.2) [place] % (Auto) 5.2 % 5.5 % (2.6-8.5) (2.6-8.5) Eos % (Auto) 0.1 % 0.0 % (0-4.4) (0-4.4) Baso % (Auto) 0.3 % 0.3 % (0.2-1.2) (0.2-1.2) Lymph # (Auto) 1.49 K/mm3 1.58 K/mm3 (0.9-3.2) (0.9-3.2) [place] # (Auto) 1.0 H K/mm3 1.1 H K/mm3 (0.1-0.6) (0.1-0.6) Eos # (Auto) 0.0 K/mm3 0.0 K/mm3 (0-0.3) (0-0.3) Baso # (Auto) 0.1 K/mm3 0.1 K/mm3 (0.0-0.1) (0.0-0.1) Abs Immat Gran (auto) 0.32 H K/mm3 0.22 H K/mm3 (0.00-0.031) (0.00-0.031) Absolute Neuts (auto) 15.9 H K/mm3 17.6 H K/mm3 (1.3-6.7) (1.3-6.7) Absolute Nucleated RBC 0.0 K/mm3 0.0 K/mm3 (0.0-0.012) (0.0-0.012) Nucleated RBC % 0.0 % 0.0 % (0.0-0.2) (0.0-0.2) Platelet Estimate Adequate (Adequate) Anisocytosis 1+ (NORMAL) [place] Cells 1+ (NORMAL) Schistocytes None seen (NORMAL) PT 15.9 H Seconds (11.1-14.7) INR 1.2 APTT 29.3 SECONDS (22.3-36.8) Puncture Site Left brachial ABG pH 7.476 H (7.350-7.450) ABG pCO2 29.5 L mmHg (35.0-45.0) ABG pO2 99.8 mmHg (80.0-100.0) ABG PO2/FiO2 Ratio 4.75 % ABG HCO3 21.3 L mEq/l (22.0-26.0) ABG O2 Saturation 98.0 % (95.0-100.0) ABG O2 Content 10.7 L %vol (16.0-22.0) ABG Base Excess -1.9 mEq/l (+/-2.0) A-a Gradient 14.6 mmHg Oxyhemoglobin 96.1 % THb (90.0-100.0) Carboxyhemoglobin 0.5 %
--- NOTE | 2023-07-24 11:54 | WPDGICN ---
Assessment and Plan Assessment and plan (1) Upper GI bleed: Code(s): K92.2 - Gastrointestinal hemorrhage, unspecified Status: Acute Assessment and Plan: will proceed with urgent EGD, probably he has bleeding ulcer iv protonix and icu support (2) Syncope: Code(s): R55 - Syncope and collapse Status: Acute Assessment and Plan: resolved also had hypotension and could be from active upper GIB (3) Hypotension: Code(s): I95.9 - Hypotension, unspecified Status: Acute Assessment and Plan: better after fluids and transfusion (4) Acute on chronic blood loss anemia: Code(s): D62 - Acute posthemorrhagic anemia Status: Acute Assessment and Plan: monitor for more signs of bleeding (5) CVA (cerebral vascular accident): Code(s): I63.9 - Cerebral infarction, unspecified Status: Acute GI Consult Note Consult date/time: 07/24/23 11:54 Reason for consult: melena HPI: Edilberto Ellison is a 77 year old male who just recently had CVA with residual left-sided weakness and slurred speech who was at rehab and was brought to ER because new onset of black stools. Per shelter report, patient was found have black stools and then had syncope. Denies previous GIB in fact just prior to his recent stroke he had not seen a doctor for years. ER evaluation found obvious black tarry stool and he was hypotensive.? Hemoglobin had dropped to 8.5 from 12.5 on July 22, also hyponatremia of 134, BUN 59, creatinine 1.0.? He was admitted to ICU and diagnosed with GI bleed and was given 1 unit PRBC transfusion.?Started on iv protonix.? Review of Systems Constitutional: Constitutional: Denies chills Eyes: Eyes: Denies blurry vision ENT: Reports Normal hearing present Cardiovascular: Cardiovascular: Denies chest pain Respiratory: Respiratory: Denies cough Gastrointestinal: Gastrointestinal: Reports melena Genitourinary: Genitourinary: Denies dysuria Musculoskeletal: Musculoskeletal: Denies arthralgias Integumentary/Breasts: Skin/Breast: Denies rash Neurologic: Comments: recent stroke Psychiatric: Psychiatric: Denies homicidal ideation [facility] Past Medical History Medical History Anemia CVA (cerebral vascular accident) Social History Social History Smoking status: Never smoker Alcohol intake: unknown Drinks per week: 0 Substance use: unknown Substance use type: does not use Spiritual care concerns: No Meds Home Medications and Allergies Home Medications Medication Instructions Recorded Confirmed Type acetaminophen 325 mg tablet 325 mg PO PRN PRN Pain (Scale 07/19/23 07/23/23 History (Tylenol) Score 4-6) aspirin 81 mg tablet 81 mg PO DAILY 07/23/23 07/23/23 History atorvastatin 40 mg tablet 40 mg PO HS 07/23/23 07/23/23 History cetirizine 10 mg tablet (Zyrtec) 10 mg PO DAILY 07/23/23 07/23/23 History cyproheptadine 4 mg tablet 4 mg PO Q8H 07/23/23 07/23/23 History enoxaparin 40 mg/0.4 mL 40 mg subcut DAILY 07/23/23 07/23/23 History subcutaneous syringe (Lovenox) guaifenesin 200 mg/5 mL oral syrup 200 mg PO DAILY 07/23/23 07/23/23 History hydroxyzine HCl 50 mg tablet 50 mg PO PRN 07/23/23 07/23/23 History melatonin 3 mg tablet 3 mg PO HS 07/23/23 07/23/23 History sennosides 8.6 mg-docusate sodium 1 tablet PO HS 07/23/23 07/23/23 History 50 mg tablet (Senna with Docusate Sodium) Allergies Allergy/AdvReac Type Severity Reaction Status Date / Time No Known Allergies Allergy Verified 07/24/23 11:29 Vital Signs Vital Signs - 24 hr 07/23/23 15:17 07/23/23 15:43 07/23/23 16:34 Temperature 97.5 F L 97.1 F L 97.1 F L Pulse Rate 95 95 86 Respiratory Rate 24 H 23 H 18 Blood Pressure 73/44 L 77/44 L 106/66 Pulse Oximetry 98 Oxygen Delivery Room Air 07/23/23 16:58 07/23/23 16:59 07/23/23 17:59
[2023-07-24] MEDS: EPINEPHrine INJ 1 MG/10 ML SYRINGE 0.5 MG XX (12:14)
[2023-07-24 14:46] LABS: Hematocrit 22.8 % (42.0-52.0); Hemoglobin 7.5 g/dL (14.0-18.0); Mean Corpuscular HGB Conc 32.9 g/dl (32-36); Mean Corpuscular Hemoglobin 32.2 pg (26-34); Mean Corpuscular Volume 97.9 fl (80-100); Mean Platelet Volume 9.4 fl (7.4-10.4); Platelet Count Result 271 k/mm3 (150-375); Red Blood Count 2.33 M/mm3 (4.6-6.20); Red Cell Distribution Width 13.4 % (11.5-14.5); White Blood Count 17.2 K/mm3 (4.5-10.0)
[2023-07-24 20:10] LABS: Basophils Absolute Auto 0.1 K/mm3 (0.0-0.1); Basophils Percent Auto 0.3 % (0.2-1.2); Eosinophils Absolute Auto 0.1 K/mm3 (0-0.3); Eosinophils Percent Auto 0.4 % (0-4.4); Hematocrit 21.4 % (42.0-52.0); Hemoglobin 7.1 g/dL (14.0-18.0); Immature Granulocyte Absolute 0.21 K/mm3 (0.00-0.031); Immature Granulocyte Percent A 1.1 % (0-0.5); Lymphocytes Percent Auto 9.1 % (18.3-44.2); Mean Corpuscular HGB Conc 33.2 g/dl (32-36); Mean Corpuscular Hemoglobin 32.4 pg (26-34); Mean Corpuscular Volume 97.7 fl (80-100); Mean Platelet Volume 8.9 fl (7.4-10.4); Monocytes Absolute Auto 1.3 K/mm3 (0.1-0.6); Monocytes Percent Auto 6.3 % (2.6-8.5); Neutrophils Absolute Auto 16.5 K/mm3 (1.3-6.7); Neutrophils Percent Auto 82.8 % (45.5-73.1); Platelet Count Result 258 k/mm3 (150-375); Red Blood Count 2.19 M/mm3 (4.6-6.20); Red Cell Distribution Width 13.4 % (11.5-14.5); White Blood Count 19.9 K/mm3 (4.5-10.0)
[2023-07-24 20:22] LABS: Anion Gap 3 mmol/L (8-16); Blood Urea Nitrogen 47 mg/dL (9-20); Calcium 7.7 mg/dL (8.4-10.2); Carbon Dioxide 24 mmol/L (22-30); Chloride 110 mmol/L (98-107); Estimated CRCL calculation 84 ml/min; Estimated Glomerular Filt Rate > 60; Glucose 104 mg/dL (65-110); Potassium 4.1 mmol/L (3.4-5.0); Sodium 137 mmol/L (137-145)
[2023-07-24] MEDS: ATORVASTATIN 40 MG TABLET PO (21:08)
[2023-07-24] MEDS: FLUTICASONE PROPIONATE 0.05% NA SPR 16 GM BTL (*BKC) 1 SPRAY NASAL (21:08)
[2023-07-24] MEDS: SENNA/DOCUSATE SODIUM TABLET 1 TAB PO (21:08)
[2023-07-24] MEDS: MELATONIN 3 MG TABLET PO (21:09)
[2023-07-25] VITALS (16 sets, daily range): BP systolic 92–125; BP diastolic 50–60; PULSE 65–78; RESP 18–31; TEMP 36.4–36.9; O2SAT 99–100
[2023-07-25] MEDS: DEXTROSE 5%/LACTATED RINGERS 1,000 ML 75 ML IV CONT
[2023-07-25 02:50] LABS: Mean Corpuscular HGB Conc 32.8 g/dl (32-36); Mean Corpuscular Hemoglobin 32.3 pg (26-34); Mean Corpuscular Volume 98.4 fl (80-100); Platelet Count Result 229 k/mm3 (150-375); Red Blood Count 1.92 M/mm3 (4.6-6.20); Red Cell Distribution Width 13.6 % (11.5-14.5); White Blood Count 16.7 K/mm3 (4.5-10.0)
[2023-07-25 02:56] LABS: Hemoglobin 6.2 g/dL (14.0-18.0)
[2023-07-25 02:57] LABS: Hematocrit 18.9 % (42.0-52.0)
[2023-07-25] MEDS: PANTOPRAZOLE SODIUM IV 80 MG in SODIUM CHLORIDE 0.9% IV 500 ML 50 MG IV CONT (03:38)
[2023-07-25 07:03] LABS: Hematocrit 23.6 % (42.0-52.0); Hemoglobin 7.8 g/dL (14.0-18.0); Mean Corpuscular HGB Conc 33.1 g/dl (32-36); Mean Corpuscular Hemoglobin 32.2 pg (26-34); Mean Corpuscular Volume 97.5 fl (80-100); Mean Platelet Volume 9.5 fl (7.4-10.4); Platelet Count Result 222 k/mm3 (150-375); Red Blood Count 2.42 M/mm3 (4.6-6.20); White Blood Count 14.8 K/mm3 (4.5-10.0)
[2023-07-25] MEDS: PANTOPRAZOLE SODIUM IV 40 MG VIAL IV PUSH ×2 (08:20→20:33)
[2023-07-25] MEDS: LORATADINE 10 MG TABLET PO (08:20)
[2023-07-25] MEDS: IRON SUCROSE COMPLEX 100 MG in SODIUM CHLORIDE 0.9% IV 50 ML 220 MG IVPB (08:21)
--- NOTE | 2023-07-25 09:14 | WPDINTPN ---
Progress Note: A&P Assessment and Plan (1) Upper GI bleed: Code(s): K92.2 - Gastrointestinal hemorrhage, unspecified Status: Acute Assessment and Plan: Patient was transfused 1 unit of PRBC on presentation 07/24 EGD showed reflux esophagitis, hiatal hernia, gastritis, duodenal ulcer 07/25 hemoglobin 6.2 and patient was transfuse 1 more unit of PRBC Continue serial monitoring at this time and transfuse if needed Change PPI to IV q.12 hours Aspirin and Lovenox have been discontinued (2) Anemia: Code(s): D64.9 - Anemia, unspecified Status: Acute Assessment and Plan: Secondary to upper GI bleed Management as above patient is also receiving iron (3) CVA (cerebral vascular accident): Code(s): I63.9 - Cerebral infarction, unspecified Status: Acute Assessment and Plan: Patient had a recent CVA on 07/13 and 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 Patient was treated at [facility] and was then discharged to [facility] where he has been working with physical therapy. Patient has been on aspirin which has been on hold this time due to GI bleed He is on statin Repeat echo and carotid Dopplers-see below (4) Hypotension: Code(s): I95.9 - Hypotension, unspecified Status: Acute Assessment and Plan: Patient had hypotension on arrival likely secondary to volume loss. Improved with IV fluids Monitor (5) Syncope: Code(s): R55 - Syncope and collapse Status: Acute Assessment and Plan: Although etiology is not fully clear I but I suspect that patient's syncope was likely secondary to GI bleed and hypotension No recurrence since coming to hospital Carotid Dopplers were done this morning and showed IMPRESSION: 1. <50% stenosis in the right internal carotid artery. 2. <50% stenosis in the left internal carotid artery. Echo Summary ? 1. Left ventricular chamber dimension is normal. ? 2. There is mildly increased left ventricular wall thickness. ? 3. Left ventricular systolic function is hyperdynamic, estimated at 65-70%. ? 4. The left ventricular diastolic function is grade I diastolic dysfunction. ? 5. There is mild tricuspid valve regurgitation. EKG shows normal sinus rhythm and currently he is in sinus rhythm Continue telemetry monitoring PT evaluation (6) Dysphagia: Code(s): R13.10 - Dysphagia, unspecified Status: Acute Assessment and Plan: Patient has history of dysphagia since his CVA and is on modified diet Nurse reported the patient was having some difficulty with the current ordered diet. I will request speech therapy to re-evaluate patient's swallow capability Plan DVT prophylaxis -SCDs Stress ulcer prophylaxis -PPI Nutrition -liquid Code Status -patient is DNR PT OT eval Speech eval Subjective Date/time seen: 07/25/23 Overnight events reviewed. Afebrile Patient had EGD yesterday which showed gastric ulcer He had 1 bowel movement overnight which was dark but no nausea vomiting Patient complaining of dry mouth this morning and would like to drink some water. He denies any other complaints. Patient denies fever, chest pain, shortness of breath, cough, nausea vomiting, abdominal pain,, diarrhea, headache or constipation. All other systems were reviewed and were negative He had 1 unit of PRBC transfuse early this morning Sinus [place] on the monitor Other vitals acceptable Review of Systems Review of Systems: All systems reviewed & are unremarkable except as noted in HPI and below (HPI) Exam Narrative: General: Pt is alert awake and in NAD Lungs/Chest: Trachea central Clear BS B/L, No crackles or wheezing. Cardiac: RRR. Normal S1 S2. No murmurs Circulation: Pedal pulses are intact and symmetrical. Abdomen: Normal bowel sounds.. Soft. NT. ND. Extremities: No clubbing, cyanosis or edema. Warm :
--- NOTE | 2023-07-25 09:33 | PM.IMPN ---
Progress Note: A&P Assessment and Plan (1) Upper GI bleed: Code(s): K92.2 - Gastrointestinal hemorrhage, unspecified Status: Acute Assessment and Plan: Patient was transfused 1 unit of PRBC on presentation 07/24 EGD showed reflux esophagitis, hiatal hernia, gastritis, duodenal ulcer 07/25 hemoglobin 6.2 and patient was transfuse 1 more unit of PRBC Continue serial monitoring at this time and transfuse if needed Change PPI to IV q.12 hours not on NSAIDs anti-platelet medication or blood thinners (2) Anemia: Code(s): D64.9 - Anemia, unspecified Status: Acute Assessment and Plan: Acute on chronic blood-loss anemia due to peptic ulcer patient is also receiving iron Follow CBC hemoglobin, transfuse as needed patient (3) CVA (cerebral vascular accident): Code(s): I63.9 - Cerebral infarction, unspecified Status: Acute Assessment and Plan: Patient had a recent CVA on 07/13 and 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 Patient was treated at [facility] and was then discharged to [facility] where he has been working with physical therapy. Patient has been on aspirin which has been on hold this time due to GI bleed He is on statin Repeat echo and carotid Dopplers-see below (4) Hypotension: Code(s): I95.9 - Hypotension, unspecified Status: Acute Assessment and Plan: Patient had hypotension on arrival likely secondary to volume loss. Improved with IV fluids Monitor (5) Syncope: Code(s): R55 - Syncope and collapse Status: Acute Assessment and Plan: Although etiology is not fully clear I but I suspect that patient's syncope was likely secondary to GI bleed and hypotension No recurrence since coming to hospital Carotid Dopplers were done this morning and showed IMPRESSION: 1. <50% stenosis in the right internal carotid artery. 2. <50% stenosis in the left internal carotid artery. Echo Summary ? 1. Left ventricular chamber dimension is normal. ? 2. There is mildly increased left ventricular wall thickness. ? 3. Left ventricular systolic function is hyperdynamic, estimated at 65-70%. ? 4. The left ventricular diastolic function is grade I diastolic dysfunction. ? 5. There is mild tricuspid valve regurgitation. EKG shows normal sinus rhythm and currently he is in sinus rhythm Continue telemetry monitoring PT evaluation (6) Dysphagia: Code(s): R13.10 - Dysphagia, unspecified Status: Acute Assessment and Plan: Patient has history of dysphagia since his CVA and is on modified diet Nurse reported the patient was having some difficulty with the current ordered diet. I will request speech therapy to re-evaluate patient's swallow capability Plan DVT prophylaxis -SCDs Stress ulcer prophylaxis -PPI Nutrition -liquid Code Status -patient is DNR PT OT eval Speech eval Subjective Date/time seen: 07/25/23 09:33 Interval history: I saw exam patient today, patient denies chest pain, dizziness, shortness breath, nausea vomiting. I reviewed labs, patient is afebrile, hemodynamically stable. receive 1 PRBC today. Exam Narrative: General: Pt is alert awake and in NAD Lungs/Chest: Trachea central Clear BS B/L, No crackles or wheezing. Cardiac: RRR. Normal S1 S2. No murmurs Circulation: Pedal pulses are intact and symmetrical. Abdomen: Normal bowel sounds.. Soft. NT. ND. Extremities: No clubbing, cyanosis or edema. Warm : Aaron in place Neurologic: Follows commands. AO x 3 Moves all 4 extremities PERRL, left sided weakness, able to move all exts. left facial droop, normal speech Skin: No Rash Objective Data Vital Signs Vital Signs: Vital Signs - 24 hr 07/24/23 10:00 07/24/23 10:00 07/24/23 11:22 Temperature 97.3 F L Pulse Rate 69 69 64 Respiratory Rate 22 H 22 H Blood Pressure 107/53 L 99/4
--- NOTE | 2023-07-25 10:32 | WPDANESPN ---
Anes - Prog Note Post-Op Date/Time: 07/25/23 10:32 Cardiovascular status: normal Respiratory status: normal Airway patency: baseline Mental status: baseline Post-Op hydration status: normal Vital Signs: Last Vital Signs Temp 36.4 C L 07/25/23 08:00 Pulse 68 07/25/23 10:00 Resp 18 07/25/23 10:00 BP 118/54 L 07/25/23 08:00 Pulse Ox 100 07/25/23 10:00 O2 Del Method Room Air 07/25/23 08:00 O2 Flow Rate 2 07/24/23 12:21 Pain Score (VAS): Patient asleep, no nonverbal signs of pain present at this time I/O: Intake & Output 07/24/23 07/25/23 07/25/23 23:59 07:59 15:59 Intake Total 1200 950 100 Output Total 600 300 Balance 600 650 100 Laboratory Tests 07/25/23 06:55 07/24/23 20:05 07/23/23 07/24/23 07/24/23 15:27 14:40 20:05 WBC 17.2 H 19.9 H RBC 2.33 L 2.19 L Hgb 7.5 L 7.1 L Hct 22.8 L 21.4 L MCV 97.9 97.7 MCH 32.2 32.4 MCHC 32.9 33.2 RDW 13.4 13.4 Plt Count 271 258 MPV 9.4 8.9 Immature Gran % (Auto) 1.1 H Neut % (Auto) 82.8 H Lymph % (Auto) 9.1 L [place] % (Auto) 6.3 Eos % (Auto) 0.4 Baso % (Auto) 0.3 Lymph # (Auto) 1.80 [place] # (Auto) 1.3 H Eos # (Auto) 0.1 Baso # (Auto) 0.1 Abs Immat Gran (auto) 0.21 H Absolute Neuts (auto) 16.5 H Absolute Nucleated RBC 0.0 Nucleated RBC % 0.0 Sodium 137 Potassium 4.1 Chloride 110 H Carbon Dioxide 24 Anion Gap 3 L BUN 47 H D Creatinine 0.70 Estim Creat Clear Calc 84 Estimated GFR > 60 Glucose 104 Calcium 7.7 L Blood Type A Positive Antibody Screen Negative Crossmatch See Detail 07/25/23 07/25/23 02:41 06:55 WBC 16.7 H 14.8 H RBC 1.92 L 2.42 L Hgb 6.2 L* 7.8 L Hct 18.9 L* 23.6 L MCV 98.4 97.5 MCH 32.3 32.2 MCHC 32.8 33.1 RDW 13.6 14.0 Plt Count 229 222 MPV 9.0 9.5 Immature Gran % (Auto) Neut % (Auto) Lymph % (Auto) [place] % (Auto) Eos % (Auto) Baso % (Auto) Lymph # (Auto) [place] # (Auto) Eos # (Auto) Baso # (Auto) Abs Immat Gran (auto) Absolute Neuts (auto) Absolute Nucleated RBC Nucleated RBC % Sodium Potassium Chloride Carbon Dioxide Anion Gap BUN Creatinine Estim Creat Clear Calc Estimated GFR Glucose Calcium Blood Type Antibody Screen Crossmatch Post-procedural complaints: none Patient Feedback: Patient satisfied with anesthetic care.
--- NOTE | 2023-07-25 11:21 | PCFNICU ---
ICU Rounding Note: Pt current nutrition is Pureed, Level 4 with Moderately Thick liquids, Level 3. Last recorded weight is 81.6 kg, no weight changes. Bowel Motility:+Bm reported 07/24 Labs Reviewed:Hgb 7.8,Hct 23.6 Meds Noted:Protonix Skin: WNL Additional Notes: Patient had bedside swallowing today. Diet order advanced to Pureed,Level 4 with Moderately thick liquids, Level 3.Oral Intake has been about 25-50% of meals. Lunch tray will have pureed foods options. Ensure compact BID being provided for additional 220 kcals and 9 gms protein. Agree with diet orders. Following daily in ICU rounds.
--- NOTE | 2023-07-25 11:43 | PCSTNOTE ---
Please refer to the Bedside Swallow Evaluation in the EMR. Please note, silent aspiration cannot be ruled out at bedside.
--- NOTE | 2023-07-25 12:22 | WPDGIPROGNO ---
Progress Note: A&P Assessment and Plan (1) Duodenal ulcer hemorrhage: Code(s): K26.4 - Chronic or unspecified duodenal ulcer with hemorrhage Status: Acute Assessment and Plan: treated yesterday with epi and gold probe also had ulcerative gastritis continue with protonix twice daily, avoid asa and nsaid's monitor for more signs of bleeding, probably expect melena for 1-2 days (2) Upper GI bleed: Code(s): K92.2 - Gastrointestinal hemorrhage, unspecified Status: Acute Assessment and Plan: treated with egd continue with iv protonix on diet with aspiration precaution (3) Syncope: Code(s): R55 - Syncope and collapse Status: Acute Assessment and Plan: from acute bleeding continue to monitor (4) Acute on chronic blood loss anemia: Code(s): D62 - Acute posthemorrhagic anemia Status: Acute Assessment and Plan: trend h/h transfuse as needed to keep hgb>7 (5) CVA (cerebral vascular accident): Code(s): I63.9 - Cerebral infarction, unspecified Status: Acute Assessment and Plan: family asking about stroke and medications/therapy (6) Debility: Code(s): R53.81 - Other malaise Status: Acute Subjective Date/time seen: 07/25/23 12:22 Interval history: egd yesterday with active bleeding from large duodenal ulcer treated with epinephrine and cautery he required one unit of prbc today on thickened liquid diet (he had recent stroke and he is on aspiration precaution)- he says that mouth is dry and thirsty family at bedside Review of Systems Review of Systems: All systems reviewed & are unremarkable except as noted in HPI and below Exam Narrative: General: Pt is alert awake and in NAD Neck: supple Lungs/Chest: Trachea central Clear BS B/L, No crackles or wheezing. Cardiac: RRR. Normal S1 S2. No murmurs Circulation: Pedal pulses are intact and symmetrical. Abdomen: Normal bowel sounds.. Soft. NT. ND. Extremities: No clubbing, cyanosis or edema. Warm : Aaron in place Neurologic: Follows commands. AO x 3 Moves all 4 extremities PERRL, left hemiparesis Skin: No Rash Objective Data Vital Signs Vital Signs: Vital Signs - 24 hr 07/24/23 12:41 07/24/23 12:31 07/24/23 13:10 Temperature Pulse Rate 60 61 63 Respiratory Rate 25 H 24 H 20 Blood Pressure 101/56 L 94/48 L 113/46 L Pulse Oximetry 96 98 99 Oxygen Delivery Room Air Room Air 07/24/23 13:10 07/24/23 13:13 07/24/23 14:00 Temperature Pulse Rate 63 68 Respiratory Rate Blood Pressure Pulse Oximetry 99 Oxygen Delivery Room Air 07/24/23 14:00 07/24/23 16:00 07/24/23 16:00 Temperature 98.3 F Pulse Rate 71 73 Respiratory Rate 22 H 22 H Blood Pressure 112/55 L 112/50 L Pulse Oximetry 100 99 100 Oxygen Delivery Room Air 07/24/23 16:00 07/24/23 18:00 07/24/23 18:00 Temperature Pulse Rate 73 75 74 Respiratory Rate 22 H Blood Pressure 102/46 L Pulse Oximetry 100 Oxygen Delivery 07/24/23 19:27 07/24/23 19:29 07/24/23 19:31 Temperature 98.2 F Pulse Rate 73 73 73 Respiratory Rate 19 19 Blood Pressure 92/58 L Pulse Oximetry 100 100 Oxygen Delivery Room Air 07/24/23 22:00 07/24/23 22:00 07/25/23 00:00 Temperature Pulse Rate 69 69 78 Respiratory Rate 18 Blood Pressure 92/63 L Pulse Oximetry 100 Oxygen Delivery 07/25/23 00:00 07/25/23 00:00 07/25/23 03:45 Temperature 98.4 F Pulse Rate 78 72 69 Respiratory Rate 18 18 22 H Blood Pressure 108/53 L Pulse Oximetry 100 100 100 Oxygen Delivery Room Air 07/25/23 04:00 07/25/23 02:00 07/25/23 02:00 Temperature 98.4 F 98.4 F Pulse Rate 73 73 72 Respiratory Rate 21 H 20 Blood Pressure 92/58 L Pulse Oximetry 100 100 Oxygen Delivery 07/25/23 04:00 07/25/23 04:00 07/25/23 04:00 Temperature 98.4 F Pulse Rate 74 74 74 Respiratory Rate 21 H 21 H Blood Pressure 92/58 L Pulse Oximetry 100 100 Oxyg
[2023-07-25] MEDS: FLUTICASONE PROPIONATE 0.05% NA SPR 16 GM BTL (*BKC) 1 SPRAY NASAL ×2 (12:34→20:33)
[2023-07-25 14:49] LABS: Hematocrit 23.7 % (42.0-52.0); Hemoglobin 7.7 g/dL (14.0-18.0); Mean Corpuscular HGB Conc 32.5 g/dl (32-36); Mean Corpuscular Hemoglobin 31.2 pg (26-34); Mean Platelet Volume 9.4 fl (7.4-10.4); Platelet Count Result 250 k/mm3 (150-375); Red Blood Count 2.47 M/mm3 (4.6-6.20); Red Cell Distribution Width 14.6 % (11.5-14.5); White Blood Count 14.4 K/mm3 (4.5-10.0)
[2023-07-25] MEDS: ACETAMINOPHEN 325 MG TABLET 650 MG PO ×2 (15:33→20:32)
[2023-07-25] MEDS: CYPROHEPTADINE HCL 4 MG TABLET PO (19:31)
[2023-07-25 20:31] LABS: Basophils Percent Auto 0.2 % (0.2-1.2); Eosinophils Absolute Auto 0.1 K/mm3 (0-0.3); Eosinophils Percent Auto 0.7 % (0-4.4); Hematocrit 21.9 % (42.0-52.0); Hemoglobin 7.2 g/dL (14.0-18.0); Immature Granulocyte Absolute 0.09 K/mm3 (0.00-0.031); Immature Granulocyte Percent A 0.7 % (0-0.5); Lymphocytes Absolute Auto 1.65 K/mm3 (0.9-3.2); Lymphocytes Percent Auto 13.7 % (18.3-44.2); Mean Corpuscular HGB Conc 32.9 g/dl (32-36); Mean Corpuscular Hemoglobin 31.4 pg (26-34); Mean Corpuscular Volume 95.6 fl (80-100); Mean Platelet Volume 9.3 fl (7.4-10.4); Monocytes Absolute Auto 0.8 K/mm3 (0.1-0.6); Monocytes Percent Auto 6.7 % (2.6-8.5); Neutrophils Absolute Auto 9.4 K/mm3 (1.3-6.7); Nucleated Red Blood Cells Perc 0.2 % (0.0-0.2); Platelet Count Result 245 k/mm3 (150-375); Red Blood Count 2.29 M/mm3 (4.6-6.20); Red Cell Distribution Width 14.7 % (11.5-14.5); White Blood Count 12.1 K/mm3 (4.5-10.0)
[2023-07-25] MEDS: SENNA/DOCUSATE SODIUM TABLET 1 TAB PO (20:33)
[2023-07-25] MEDS: hydrOXYzine HCL 25 MG TABLET 50 MG PO (20:33)
[2023-07-25] MEDS: MELATONIN 3 MG TABLET PO (20:33)
[2023-07-25] MEDS: ATORVASTATIN 40 MG TABLET PO (20:33)
[2023-07-25 20:45] LABS: Anion Gap 3 mmol/L (8-16); Blood Urea Nitrogen 39 mg/dL (9-20); Calcium 7.6 mg/dL (8.4-10.2); Carbon Dioxide 23 mmol/L (22-30); Chloride 110 mmol/L (98-107); Estimated CRCL calculation 84 ml/min; Estimated Glomerular Filt Rate > 60; Glucose 95 mg/dL (65-110); Potassium 3.5 mmol/L (3.4-5.0); Sodium 136 mmol/L (137-145)
[2023-07-26] VITALS (11 sets, daily range): BP systolic 94–120; BP diastolic 47–73; PULSE 58–77; RESP 12–24; TEMP 35.9–37.1; O2SAT 96–100
[2023-07-26 02:01] LABS: Hematocrit 21.1 % (42.0-52.0); Mean Corpuscular HGB Conc 33.2 g/dl (32-36); Mean Corpuscular Hemoglobin 31.8 pg (26-34); Mean Corpuscular Volume 95.9 fl (80-100); Mean Platelet Volume 9.3 fl (7.4-10.4); Platelet Count Result 241 k/mm3 (150-375); Red Cell Distribution Width 14.7 % (11.5-14.5); White Blood Count 10.9 K/mm3 (4.5-10.0)
[2023-07-26 08:12] LABS: Hematocrit 23.2 % (42.0-52.0); Hemoglobin 7.5 g/dL (14.0-18.0); Mean Corpuscular HGB Conc 32.3 g/dl (32-36); Mean Corpuscular Hemoglobin 32.1 pg (26-34); Mean Corpuscular Volume 99.1 fl (80-100); Platelet Count Result 237 k/mm3 (150-375); Red Blood Count 2.34 M/mm3 (4.6-6.20); Red Cell Distribution Width 14.8 % (11.5-14.5); White Blood Count 10.2 K/mm3 (4.5-10.0)
--- NOTE | 2023-07-26 08:42 | WPDINTPN ---
Progress Note: A&P Assessment and Plan (1) Upper GI bleed: Code(s): K92.2 - Gastrointestinal hemorrhage, unspecified Status: Acute Assessment and Plan: Patient was transfused 1 unit of PRBC on presentation 07/24 EGD showed reflux esophagitis, hiatal hernia, gastritis, duodenal ulcer 07/25 hemoglobin 6.2 and patient was transfuse 1 more unit of PRBC 07/26 hemoglobin stable and no signs of active bleeding Continue serial monitoring but less frequently and transfuse if needed Continue pPI to IV q.12 hours Aspirin and Lovenox have been discontinued (2) Anemia: Code(s): D64.9 - Anemia, unspecified Status: Acute Assessment and Plan: Secondary to upper GI bleed Management as above patient is also receiving iron (3) CVA (cerebral vascular accident): Code(s): I63.9 - Cerebral infarction, unspecified Status: Acute Assessment and Plan: Patient had a recent CVA on 07/13 and 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 Patient was treated at [facility] and was then [facility] where he has been working with physical therapy. Patient has been on aspirin which has been on hold this time due to GI bleed He is on statin Repeat echo and carotid Dopplers-see below (4) Hypotension: Code(s): I95.9 - Hypotension, unspecified Status: Acute Assessment and Plan: Patient had hypotension on arrival likely secondary to volume loss. Improved with IV fluids Monitor (5) Syncope: Code(s): R55 - Syncope and collapse Status: Acute Assessment and Plan: Although etiology is not fully clear I but I suspect that patient's syncope was likely secondary to GI bleed and hypotension No recurrence since coming to hospital Carotid Dopplers were done this morning and showed IMPRESSION: 1. <50% stenosis in the right internal carotid artery. 2. <50% stenosis in the left internal carotid artery. Echo Summary ? 1. Left ventricular chamber dimension is normal. ? 2. There is mildly increased left ventricular wall thickness. ? 3. Left ventricular systolic function is hyperdynamic, estimated at 65-70%. ? 4. The left ventricular diastolic function is grade I diastolic dysfunction. ? 5. There is mild tricuspid valve regurgitation. EKG shows normal sinus rhythm and currently he is in sinus rhythm Continue telemetry monitoring PT evaluation (6) Dysphagia: Code(s): R13.10 - Dysphagia, unspecified Status: Acute Assessment and Plan: Patient has history of dysphagia since his CVA and is on modified diet Nurse reported the patient was having some difficulty with the current ordered diet. 07/25 patient had repeat swallow evaluation and is now on modified diet (7) Electrolyte abnormality: Code(s): E87.8 - Other disorders of electrolyte and fluid balance, not elsewhere classified Status: Acute Assessment and Plan: Potassium replacement Plan DVT prophylaxis -SCDs Stress ulcer prophylaxis -PPI Nutrition -liquid Code Status -patient is DNR PT OT eval Transfer out of ICU today Subjective Date/time seen: 07/26/23 Overnight events reviewed. Afebrile No bowel movements overnight. No nausea vomiting Patient had repeat swallow evaluation yesterday and is now on modified diet He complains of feeling sore by laying in bed. He denies any other complaints.? Patient denies fever, chest pain, shortness of breath, cough, nausea vomiting, abdominal pain,, diarrhea, headache or constipation.? All other systems were reviewed and were negative Sinus [place] on the monitor Other vitals acceptable Review of Systems Review of Systems: All systems reviewed & are unremarkable except as noted in HPI and below (HPI) Exam Narrative: General: Pt is alert awake and in NAD Lungs/Chest: Trachea central Clear BS B/L, No crackles or wheezing
[2023-07-26] MEDS: IRON SUCROSE COMPLEX 100 MG in SODIUM CHLORIDE 0.9% IV 50 ML 220 MG IVPB (08:47)
[2023-07-26] MEDS: LORATADINE 10 MG TABLET PO (08:48)
[2023-07-26] MEDS: PANTOPRAZOLE SODIUM IV 40 MG VIAL IV PUSH ×2 (08:48→20:06)
[2023-07-26] MEDS: FLUTICASONE PROPIONATE 0.05% NA SPR 16 GM BTL (*BKC) 1 SPRAY NASAL ×2 (08:48→21:43)
[2023-07-26] MEDS: POTASSIUM BICARBONATE 25 MEQ TABEF 50 MEQ PO (08:49)
--- NOTE | 2023-07-26 09:01 | PM.IMPN ---
Progress Note: A&P Assessment and Plan (1) Upper GI bleed: Code(s): K92.2 - Gastrointestinal hemorrhage, unspecified Status: Acute Assessment and Plan: Patient was transfused 1 unit of PRBC on presentation 07/24 EGD showed reflux esophagitis, hiatal hernia, gastritis, duodenal ulcer 07/25 hemoglobin 6.2 and patient was transfuse 1 more unit of PRBC 07/26 hemoglobin stable and no signs of active bleeding Continue serial monitoring but less frequently and transfuse if needed Continue pPI to IV q.12 hours (2) Anemia: Code(s): D64.9 - Anemia, unspecified Status: Acute Assessment and Plan: Secondary to upper GI bleed Management as above patient is also receiving iron hb 7.5 today (3) CVA (cerebral vascular accident): Code(s): I63.9 - Cerebral infarction, unspecified Status: Acute Assessment and Plan: Patient had a recent CVA on 07/13 and 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 Patient was treated at [facility] and was then discharged to [place] [facility] where he has been working with physical therapy. Patient has been on aspirin which has been on hold this time due to GI bleed He is on statin Repeat echo and carotid Dopplers-see below (4) Hypotension: Code(s): I95.9 - Hypotension, unspecified Status: Acute Assessment and Plan: Patient had hypotension on arrival likely secondary to volume loss. Improved with IV fluids Monitor (5) Syncope: Code(s): R55 - Syncope and collapse Status: Acute Assessment and Plan: Although etiology is not fully clear I but I suspect that patient's syncope was likely secondary to GI bleed and hypotension No recurrence since coming to hospital Carotid Dopplers were done this morning and showed IMPRESSION: 1. <50% stenosis in the right internal carotid artery. 2. <50% stenosis in the left internal carotid artery. Echo Summary ? 1. Left ventricular chamber dimension is normal. ? 2. There is mildly increased left ventricular wall thickness. ? 3. Left ventricular systolic function is hyperdynamic, estimated at 65-70%. ? 4. The left ventricular diastolic function is grade I diastolic dysfunction. ? 5. There is mild tricuspid valve regurgitation. EKG shows normal sinus rhythm and currently he is in sinus rhythm Continue telemetry monitoring PT evaluation (6) Dysphagia: Code(s): R13.10 - Dysphagia, unspecified Status: Acute Assessment and Plan: Patient has history of dysphagia since his CVA and is on modified diet Nurse reported the patient was having some difficulty with the current ordered diet. 07/25 patient had repeat swallow evaluation and is now on modified diet (7) Electrolyte abnormality: Code(s): E87.8 - Other disorders of electrolyte and fluid balance, not elsewhere classified Status: Acute Assessment and Plan: Potassium replacement Plan DVT prophylaxis -SCDs Stress ulcer prophylaxis -PPI Nutrition -liquid Code Status -patient is DNR PT OT eval Transfer out of ICU today Subjective Date/time seen: 07/26/23 09:01 Interval history: I saw exam patient today, patient denies chest pain, dizziness, shortness breath, nausea vomiting. I reviewed labs, patient is afebrile, hemodynamically stable. hb 7.5 Exam Narrative: General: Pt is alert awake and in NAD Lungs/Chest: Trachea central Clear BS B/L, No crackles or wheezing. Cardiac: RRR. Normal S1 S2. No murmurs Circulation: Pedal pulses are intact and symmetrical. Abdomen: Normal bowel sounds.. Soft. NT. ND. Extremities: No clubbing, cyanosis or edema. Warm : Aaron in place Neurologic: Follows commands. AO x 3 Moves all 4 extremities PERRL, left hemiparesis, left facial droop, normal speech Skin: No Rash Objective Data Vital Signs Vital Signs: Vital Signs - 24 hr 07/25/23
[2023-07-26] MEDS: ACETAMINOPHEN 325 MG TABLET 650 MG PO (09:02)
[2023-07-26] MEDS: CYPROHEPTADINE HCL 4 MG TABLET PO (09:03)
--- NOTE | 2023-07-26 12:00 | PCFNICU ---
ICU Rounding Note: Pt current nutrition is Pureed, Level 4 with Mod Thick liquids, Level 3. Last recorded weight is 82.6 kg, up from 81.6 kg. Bowel Motility:+BM reported 07/24 Labs Reviewed:Hct 23.2,Hgb 7.5 Meds Noted:Protonix Skin:WNL Additional Notes: Patient tolerating Pureed, Level 4 diet/Moderately thick, Level 3. Oral intake about 50% of meals. Diet supplement on Ensure compact BID being sent for additional 220 kcals and 9 gms protein. Agree with diet orders. Following daily in ICU rounds.
--- NOTE | 2023-07-26 13:15 | PC.NURSE ---
This patient, Edilberto Ellison, was transferred to [facility] on 07/26/23 at 1315. Personal belongings sent with patient. Report given to Dianelys. Appropriate documentation sent with patient.
--- NOTE | 2023-07-26 14:44 | PC.NURSE ---
1315 patient arrived from ICU as transfer. Patient in wheelchair. Assessment done, VS done, patient denies pain, is comfortable, denies any needs at this time.
--- NOTE | 2023-07-26 16:06 | WPDGIPROGNO ---
Progress Note: A&P Assessment and Plan (1) Duodenal ulcer hemorrhage: Code(s): K26.4 - Chronic or unspecified duodenal ulcer with hemorrhage Status: Acute Assessment and Plan: treated with epi and gold probe also had ulcerative gastritis continue with protonix twice daily, avoid asa and nsaid's no more obvious signs of bleeding hgb low but relatively stable (2) Upper GI bleed: Code(s): K92.2 - Gastrointestinal hemorrhage, unspecified Status: Acute Assessment and Plan: treated with egd continue with iv protonix on diet with aspiration precaution (3) Syncope: Code(s): R55 - Syncope and collapse Status: Acute Assessment and Plan: from acute bleeding continue to monitor (4) Acute on chronic blood loss anemia: Code(s): D62 - Acute posthemorrhagic anemia Status: Acute Assessment and Plan: trend h/h, low but stable (5) CVA (cerebral vascular accident): Code(s): I63.9 - Cerebral infarction, unspecified Status: Acute Assessment and Plan: physical therapy (6) Debility: Code(s): R53.81 - Other malaise Status: Acute Subjective Date/time seen: 07/26/23 16:06 Interval history: moved to floor, he is eating, still weak but up in chair Review of Systems Review of Systems: All systems reviewed & are unremarkable except as noted in HPI and below Exam Narrative: General: Pt is alert awake and in NAD Neck: supple Lungs/Chest: Trachea central Clear BS B/L, No crackles or wheezing. Cardiac: RRR. Normal S1 S2. No murmurs Circulation: Pedal pulses are intact and symmetrical. Abdomen: Normal bowel sounds.. Soft. NT. ND. Extremities: No clubbing, cyanosis or edema. Warm : Aaron in place Neurologic: Follows commands. AO x 3 Moves all 4 extremities PERRL, left hemiparesis Skin: No Rash Objective Data Vital Signs Vital Signs: Vital Signs - 24 hr 07/25/23 17:05 07/25/23 18:00 07/25/23 18:00 Temperature Pulse Rate 70 72 Respiratory Rate 24 H Blood Pressure 121/51 L Pulse Oximetry 100 99 Oxygen Delivery Room Air Fraction of Inspired Oxygen 21 07/25/23 20:00 07/25/23 20:00 07/25/23 22:00 Temperature 98.3 F 98.4 F Pulse Rate 67 72 Respiratory Rate 19 19 Blood Pressure 103/56 L 108/50 L Pulse Oximetry 100 100 Oxygen Delivery Room Air Fraction of Inspired Oxygen 07/25/23 20:00 07/26/23 00:00 07/26/23 00:00 Temperature Pulse Rate 65 77 Respiratory Rate Blood Pressure Pulse Oximetry Oxygen Delivery Room Air Fraction of Inspired Oxygen 07/25/23 22:00 07/26/23 02:00 07/26/23 00:00 Temperature Pulse Rate 67 68 66 Respiratory Rate 16 Blood Pressure 105/65 Pulse Oximetry 100 Oxygen Delivery Fraction of Inspired Oxygen 07/26/23 02:00 07/25/23 21:35 07/26/23 04:00 Temperature Pulse Rate 65 69 Respiratory Rate 24 H 13 Blood Pressure 118/60 110/54 L Pulse Oximetry 100 100 100 Oxygen Delivery Room Air Fraction of Inspired Oxygen 07/26/23 04:00 07/26/23 04:00 07/26/23 06:00 Temperature 98.8 F Pulse Rate 69 62 Respiratory Rate 12 Blood Pressure 99/47 L Pulse Oximetry 100 Oxygen Delivery Room Air Fraction of Inspired Oxygen 07/26/23 06:00 07/26/23 08:00 07/26/23 08:00 Temperature 98.4 F Pulse Rate 62 70 70 Respiratory Rate 12 Blood Pressure 120/73 Pulse Oximetry 100 Oxygen Delivery Fraction of Inspired Oxygen 07/26/23 10:00 07/26/23 10:00 07/26/23 08:00 Temperature Pulse Rate 58 L 58 L 70 Respiratory Rate 16 12 Blood Pressure 111/53 L Pulse Oximetry 98 100 Oxygen Delivery Room Air Fraction of Inspired Oxygen 07/26/23 10:32 07/26/23 12:00 07/26/23 13:42 Temperature 96.7 F L Pulse Rate 66 60 Respiratory Rate 20 Blood Pressure 94/55 L Pulse Oximetry 96 Oxygen Delivery Room Air Fraction of Inspired Oxygen Intake/Output Intake/Outpu
[2023-07-26] MEDS: SENNA/DOCUSATE SODIUM TABLET 1 TAB PO (20:05)
[2023-07-26] MEDS: MELATONIN 3 MG TABLET PO (20:05)
[2023-07-26] MEDS: ATORVASTATIN 40 MG TABLET PO (21:43)
[2023-07-27] VITALS (14 sets, daily range): BP systolic 107–122; BP diastolic 54–64; PULSE 57–86; RESP 16–20; TEMP 36.8–36.9; O2SAT 94–100
[2023-07-27 06:53] LABS: Hematocrit 21.6 % (42.0-52.0); Mean Corpuscular HGB Conc 32.4 g/dl (32-36); Mean Corpuscular Hemoglobin 32.1 pg (26-34); Mean Corpuscular Volume 99.1 fl (80-100); Mean Platelet Volume 9.5 fl (7.4-10.4); Platelet Count Result 276 k/mm3 (150-375); Red Blood Count 2.18 M/mm3 (4.6-6.20); Red Cell Distribution Width 15.4 % (11.5-14.5); White Blood Count 9.1 K/mm3 (4.5-10.0)
[2023-07-27 07:27] LABS: Alanine Aminotransferase 31 U/L (6-50); Albumin Level 2.2 g/dL (3.5-5.1); Alkaline Phosphatase 55 U/L (38-126); Anion Gap 5 mmol/L (8-16); Aspartate Amino Transferase 27 U/L (17-59); Bilirubin,Total 1.8 mg/dL (0.2-1.3); Blood Urea Nitrogen 25 mg/dL (9-20); Calcium 7.6 mg/dL (8.4-10.2); Carbon Dioxide 24 mmol/L (22-30); Chloride 107 mmol/L (98-107); Estimated CRCL calculation 84 ml/min; Estimated Glomerular Filt Rate > 60; Glucose 88 mg/dL (65-110); Magnesium 2.1 mg/dL (1.6-2.3); Potassium 3.7 mmol/L (3.4-5.0); Sodium 136 mmol/L (137-145)
--- NOTE | 2023-07-27 08:21 | PM.IMPN ---
Progress Note: A&P Assessment and Plan (1) Upper GI bleed: Code(s): K92.2 - Gastrointestinal hemorrhage, unspecified Status: Acute Assessment and Plan: Patient was transfused 1 unit of PRBC on presentation 07/24 EGD showed reflux esophagitis, hiatal hernia, gastritis, duodenal ulcer 07/25 hemoglobin 6.2 and patient was transfuse 1 more unit of PRBC 07/26 hemoglobin stable and no signs of active bleeding Continue serial monitoring but less frequently and transfuse if needed Continue pPI to IV q.12 hours 07/27 Hb 7.0, give 1 unit of pack RBC, no obvious bleeding. 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 Patient was treated at [facility] and was then discharged to [facility] where he has been working with physical therapy. Patient has been on aspirin which has been on hold this time due to GI bleed He is on statin Repeat echo and carotid Dopplers-see below (4) Hypotension: Code(s): I95.9 - Hypotension, unspecified Status: Acute Assessment and Plan: Patient had hypotension on arrival likely secondary to volume loss. Improved with IV fluids Monitor (5) Syncope: Code(s): R55 - Syncope and collapse Status: Acute Assessment and Plan: Although etiology is not fully clear I but I suspect that patient's syncope was likely secondary to GI bleed and hypotension No recurrence since coming to hospital Carotid Dopplers were done this morning and showed IMPRESSION: 1. <50% stenosis in the right internal carotid artery. 2. <50% stenosis in the left internal carotid artery. Echo Summary ? 1. Left ventricular chamber dimension is normal. ? 2. There is mildly increased left ventricular wall thickness. ? 3. Left ventricular systolic function is hyperdynamic, estimated at 65-70%. ? 4. The left ventricular diastolic function is grade I diastolic dysfunction. ? 5. There is mild tricuspid valve regurgitation. EKG shows normal sinus rhythm and currently he is in sinus rhythm Continue telemetry monitoring PT evaluation (6) Dysphagia: Code(s): R13.10 - Dysphagia, unspecified Status: Acute Assessment and Plan: Patient has history of dysphagia since his CVA and is on modified diet Nurse reported the patient was having some difficulty with the current ordered diet. 07/25 patient had repeat swallow evaluation and is now on modified diet (7) Electrolyte abnormality: Code(s): E87.8 - Other disorders of electrolyte and fluid balance, not elsewhere classified Status: Acute Assessment and Plan: Potassium replacement Plan DVT prophylaxis -SCDs Stress ulcer prophylaxis -PPI Nutrition -liquid Code Status -patient is DNR PT OT eval Transfer out of ICU today Subjective Date/time seen: 07/27/23 08:21 Interval history: I saw exam patient today, patient denies vomiting, black stool, right blood with bowel movement. Patient is afebrile, blood pressure stable. Hb drops to 7.0 from 7.5 yesterday. will transfuse 1 PRBC. Exam Narrative: General: Pt is alert awake and in NAD Lungs/Chest: Trachea central Clear BS B/L, No crackles or wheezing. Cardiac: RRR. Normal S1 S2. No murmurs Circulation: Pedal pulses are intact and symmetrical. Abdomen: Normal bowel sounds.. Soft. NT. ND. Extremities: No clubbing, cyanosis or edema. Warm : Aaron in place Neurologic: Follows commands. AO x 3 Mov
[2023-07-27] MEDS: PANTOPRAZOLE SODIUM IV 40 MG VIAL IV PUSH ×2 (08:51→20:44)
[2023-07-27] MEDS: IRON SUCROSE COMPLEX 100 MG in SODIUM CHLORIDE 0.9% IV 50 ML 220 MG IVPB (08:51)
[2023-07-27] MEDS: LORATADINE 10 MG TABLET PO (08:51)
[2023-07-27] MEDS: FLUTICASONE PROPIONATE 0.05% NA SPR 16 GM BTL (*BKC) 1 SPRAY NASAL ×2 (08:53→20:44)
--- NOTE | 2023-07-27 09:15 | WPDGIPROGNO ---
Progress Note: A&P Assessment and Plan (1) Duodenal ulcer hemorrhage: Code(s): K26.4 - Chronic or unspecified duodenal ulcer with hemorrhage Status: Acute Assessment and Plan: treated with epi and gold probe also had ulcerative gastritis will need protonix twice daily, avoid asa and nsaid's no more obvious signs of bleeding hgb low but relatively stable (2) Upper GI bleed: Code(s): K92.2 - Gastrointestinal hemorrhage, unspecified Status: Acute Assessment and Plan: treated with egd continue with protonix on diet with aspiration precaution (3) Syncope: Code(s): R55 - Syncope and collapse Status: Acute Assessment and Plan: from acute bleeding continue to monitor (4) Acute on chronic blood loss anemia: Code(s): D62 - Acute posthemorrhagic anemia Status: Acute Assessment and Plan: trend h/h, low but stable (5) CVA (cerebral vascular accident): Code(s): I63.9 - Cerebral infarction, unspecified Status: Acute Assessment and Plan: physical therapy, may need short term rehab (6) Debility: Code(s): R53.81 - Other malaise Status: Acute Subjective Date/time seen: 07/27/23 09:15 Interval history: no bleeding but he says that has been confused, asking who is taking care of him Review of Systems Review of Systems: All systems reviewed & are unremarkable except as noted in HPI and below Exam Narrative: General: Pt is alert awake and in NAD Neck: supple Lungs/Chest: Trachea central Clear BS B/L, No crackles or wheezing. Cardiac: RRR. Normal S1 S2. No murmurs Circulation: Pedal pulses are intact and symmetrical. Abdomen: Normal bowel sounds.. Soft. NT. ND. Extremities: No clubbing, cyanosis or edema. Warm : Aaron in place Neurologic: Follows commands. AO x 3 Moves all 4 extremities PERRL, left hemiparesis Skin: No Rash Objective Data Vital Signs Vital Signs: Vital Signs - 24 hr 07/26/23 10:00 07/26/23 10:00 07/26/23 10:32 Temperature Pulse Rate 58 L 58 L Respiratory Rate 16 Blood Pressure 111/53 L Pulse Oximetry 98 Oxygen Delivery Room Air Fraction of Inspired Oxygen 07/26/23 12:00 07/26/23 13:42 07/26/23 16:00 Temperature 96.7 F L Pulse Rate 66 60 65 Respiratory Rate 20 Blood Pressure 94/55 L Pulse Oximetry 96 Oxygen Delivery Fraction of Inspired Oxygen 07/26/23 20:43 07/26/23 20:05 07/26/23 20:05 Temperature 97.5 F L Pulse Rate 64 69 Respiratory Rate 16 Blood Pressure 116/61 Pulse Oximetry 100 Oxygen Delivery Room Air Fraction of Inspired Oxygen 07/27/23 00:00 07/27/23 04:28 07/27/23 04:00 Temperature 98.3 F Pulse Rate 72 76 86 Respiratory Rate 16 Blood Pressure 122/63 Pulse Oximetry 94 Oxygen Delivery Fraction of Inspired Oxygen 07/27/23 08:30 Temperature Pulse Rate Respiratory Rate Blood Pressure Pulse Oximetry 95 Oxygen Delivery Room Air Fraction of Inspired Oxygen Intake/Output Intake/Output: Intake & Output 07/24/23 07/25/23 07/26/23 07/27/23 23:59 23:59 23:59 23:59 Intake Total 1855 1295 1200 535 Output Total 800 1500 400 300 Balance 1055 -205 800 235 Meds/Results Medications: Active Medications Generic Name Dose Route Start Last Admin Trade Name Freq PRN Reason Stop Dose Admin Acetaminophen 650 mg 07/23/23 21:42 07/26/23 09:02 Acetaminophen 325 Mg Tablet PO 650 mg Q6H PRN Administration Mild Pain (1-3) or Fever Atorvastatin Calcium 40 mg 07/24/23 21:00 07/26/23 21:43 Atorvastatin 40 Mg Tablet PO 40 mg HS ASHLEY Administration Cyproheptadine HCl 4 mg 07/23/23 21:38 07/26/23 09:03 Cyproheptadine Hcl 4 Mg Tablet PO 4 mg Q8H PRN Administration Itching Fluticasone Propionate 1 spray 07/24/23 09:00 07/27/23 08:53 Fluticasone Propionate 0.05% Na Spr 16 Gm Btl (*Bkc) NASAL 1 spray Q12HR ASHLEY Administration Hydroxyzi
[2023-07-27] MEDS: SODIUM CHLORIDE 0.9% IV 250 ML 30 ML IV CONT (10:01)
[2023-07-27] MEDS: TUBING, BLOOD PLUM PUMP TUBING 1 EACH XX (10:26)
[2023-07-27] MEDS: ACETAMINOPHEN 325 MG TABLET 650 MG PO ×2 (13:14→22:27)
[2023-07-27 15:00] LABS: Hematocrit 27.1 % (42.0-52.0); Hemoglobin 8.9 g/dL (14.0-18.0)
--- NOTE | 2023-07-27 15:24 | PCPTNOTE ---
Patient on hold at this time per nursing due to increased fatigue from recently receiving blood. Will attempt a t a later time.
--- NOTE | 2023-07-27 16:40 | PCOTNOTE ---
Per RN and VOIP NETWORK ENGINEER, pt is not appropriate today at this time due to increase confusion and being more fatigue. Will attempt per POC duration/frequency tomorrow.
[2023-07-27] MEDS: SENNA/DOCUSATE SODIUM TABLET 1 TAB PO (20:44)
[2023-07-27] MEDS: MELATONIN 3 MG TABLET PO (20:44)
[2023-07-27] MEDS: ATORVASTATIN 40 MG TABLET PO (20:45)
[2023-07-28] VITALS (8 sets, daily range): BP systolic 119–129; BP diastolic 63–65; PULSE 57–65; RESP 20; TEMP 36.1–36.7; O2SAT 99–100
[2023-07-28 06:53] LABS: Hematocrit 26.1 % (42.0-52.0); Hemoglobin 8.6 g/dL (14.0-18.0); Mean Corpuscular Hemoglobin 31.9 pg (26-34); Mean Corpuscular Volume 96.7 fl (80-100); Mean Platelet Volume 9.7 fl (7.4-10.4); Platelet Count Result 291 k/mm3 (150-375); Red Cell Distribution Width 16.1 % (11.5-14.5)
[2023-07-28 07:05] LABS: Alanine Aminotransferase 28 U/L (6-50); Albumin Level 2.3 g/dL (3.5-5.1); Alkaline Phosphatase 58 U/L (38-126); Anion Gap 6 mmol/L (8-16); Aspartate Amino Transferase 24 U/L (17-59); Bilirubin,Total 1.7 mg/dL (0.2-1.3); Blood Urea Nitrogen 22 mg/dL (9-20); Calcium 7.7 mg/dL (8.4-10.2); Carbon Dioxide 23 mmol/L (22-30); Chloride 107 mmol/L (98-107); Estimated CRCL calculation 84 ml/min; Estimated Glomerular Filt Rate > 60; Glucose 106 mg/dL (65-110); Magnesium 2.1 mg/dL (1.6-2.3); Potassium 3.8 mmol/L (3.4-5.0); Sodium 136 mmol/L (137-145)
--- NOTE | 2023-07-28 08:01 | PC.NURSE ---
I contacted Dr. Benjamin to make him aware that pt had a black tarry stool overnight and his hemoglobin dropped from 8.9 (post 1 unit transfusion) to 8.6 this morning. No new orders given.
--- NOTE | 2023-07-28 08:16 | PM.IMPN ---
Progress Note: A&P Assessment and Plan (1) Upper GI bleed: Code(s): K92.2 - Gastrointestinal hemorrhage, unspecified Status: Acute Assessment and Plan: Patient was transfused 1 unit of PRBC on presentation 07/24 EGD showed reflux esophagitis, hiatal hernia, gastritis, duodenal ulcer 07/25 hemoglobin 6.2 and patient was transfuse 1 more unit of PRBC 07/26 hemoglobin stable and no signs of active bleeding Continue serial monitoring but less frequently and transfuse if needed Continue pPI to IV q.12 hours 07/27 Hb 7.0, give 1 unit of pack RBC, no obvious bleeding. Hemoglobin 1.8, follow up haptoglobin, pathologist review of peripheral blood smear, 07/28 Hemoglobin 8.6 morning after 1 pack RBC transfusion yesterday. 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 Patient was treated at [facility] and was then discharged to [facility] where he has been working with physical therapy. Patient has been on aspirin which has been on hold this time due to GI bleed He is on statin Repeat echo and carotid Dopplers-see below (4) Hypotension: Code(s): I95.9 - Hypotension, unspecified Status: Acute Assessment and Plan: Patient had hypotension on arrival likely secondary to volume loss. Improved with IV fluids Monitor (5) Syncope: Code(s): R55 - Syncope and collapse Status: Acute Assessment and Plan: Although etiology is not fully clear I but I suspect that patient's syncope was likely secondary to GI bleed and hypotension No recurrence since coming to hospital Carotid Dopplers were done this morning and showed IMPRESSION: 1. <50% stenosis in the right internal carotid artery. 2. <50% stenosis in the left internal carotid artery. Echo Summary ? 1. Left ventricular chamber dimension is normal. ? 2. There is mildly increased left ventricular wall thickness. ? 3. Left ventricular systolic function is hyperdynamic, estimated at 65-70%. ? 4. The left ventricular diastolic function is grade I diastolic dysfunction. ? 5. There is mild tricuspid valve regurgitation. EKG shows normal sinus rhythm and currently he is in sinus rhythm Continue telemetry monitoring PT evaluation (6) Dysphagia: Code(s): R13.10 - Dysphagia, unspecified Status: Acute Assessment and Plan: Patient has history of dysphagia since his CVA and is on modified diet Nurse reported the patient was having some difficulty with the current ordered diet. 07/25 patient had repeat swallow evaluation and is now on modified diet (7) Electrolyte abnormality: Code(s): E87.8 - Other disorders of electrolyte and fluid balance, not elsewhere classified Status: Acute Assessment and Plan: Potassium replacement Plan DVT prophylaxis -SCDs Stress ulcer prophylaxis -PPI Nutrition -liquid Code Status -patient is DNR PT OT eval Transfer out of ICU today Subjective Date/time seen: 07/28/23 08:16 Interval history: I saw exam patient today, patient denies vomiting, black stool, right blood with bowel movement. Patient is afebrile, blood pressure stable. Hemoglobin 8.6 morning after 1 pack RBC transfusion yesterday. Exam Narrative: General: Pt is alert awake and in NAD Lungs/Chest: Trachea central Clear BS B/L, No crackles or wheezing. Cardiac: RRR. Normal S1 S2. No murmurs Circulation: Pedal pulses are intact and symmetrical. Abdomen: Normal bowel sounds.. Soft. NT. ND. Extremities: No clubbing, cyanosis or janey
[2023-07-28] MEDS: FLUTICASONE PROPIONATE 0.05% NA SPR 16 GM BTL (*BKC) 1 SPRAY NASAL ×2 (08:24→20:56)
[2023-07-28] MEDS: IRON SUCROSE COMPLEX 100 MG in SODIUM CHLORIDE 0.9% IV 50 ML 220 MG IVPB (08:24)
[2023-07-28] MEDS: LORATADINE 10 MG TABLET PO (08:24)
[2023-07-28] MEDS: PANTOPRAZOLE SODIUM IV 40 MG VIAL IV PUSH ×2 (08:24→21:03)
--- NOTE | 2023-07-28 10:17 | WPDGIPROGNO ---
Progress Note: A&P Assessment and Plan (1) Duodenal ulcer hemorrhage: Code(s): K26.4 - Chronic or unspecified duodenal ulcer with hemorrhage Status: Acute Assessment and Plan: treated with epi and gold probe also had ulcerative gastritis continue protonix twice daily, avoid asa and nsaid's hgb 7 then received blood tranfusion, up to 8.9, repeat 8.6 I do not think that we need to repeat another EGD unless more changes, just continue with medical therapy with ppi bid, also noted that BUN has been coming down (2) Upper GI bleed: Code(s): K92.2 - Gastrointestinal hemorrhage, unspecified Status: Acute Assessment and Plan: treated with egd continue with protonix on diet with aspiration precaution (3) Syncope: Code(s): R55 - Syncope and collapse Status: Acute Assessment and Plan: from acute bleeding continue to monitor (4) Acute on chronic blood loss anemia: Code(s): D62 - Acute posthemorrhagic anemia Status: Acute Assessment and Plan: low but stable after one unit prbc yesterday (5) CVA (cerebral vascular accident): Code(s): I63.9 - Cerebral infarction, unspecified Status: Acute Assessment and Plan: physical therapy, may need short term rehab (6) Debility: Code(s): R53.81 - Other malaise Status: Acute Subjective Date/time seen: 07/28/23 10:17 Interval history: yesterday had dark stool and received one unit prbc, patient is feeling ok today, no discomfort. Hgb from 7 to 8.9, repeat 8.6 Review of Systems Review of Systems: All systems reviewed & are unremarkable except as noted in HPI and below Exam Narrative: General: Pt is alert awake and in NAD Neck: supple Lungs/Chest: Trachea central Clear BS B/L, No crackles or wheezing. Cardiac: RRR. Normal S1 S2. No murmurs Circulation: Pedal pulses are intact and symmetrical. Abdomen: Normal bowel sounds. Soft. NT. ND. Extremities: No clubbing, cyanosis or edema. Warm : Aaron in place Neurologic: Follows commands. AO x 3 Moves all 4 extremities PERRL, left hemiparesis Skin: No Rash Objective Data Vital Signs Vital Signs: Vital Signs - 24 hr 07/27/23 10:22 07/27/23 11:22 07/27/23 12:22 Temperature 98.4 F 98.3 F 98.4 F Pulse Rate 57 L 70 64 Respiratory Rate 16 16 16 Blood Pressure 107/55 L 120/56 L 110/64 Pulse Oximetry 100 100 100 Oxygen Delivery Fraction of Inspired Oxygen 07/27/23 13:09 07/27/23 13:53 07/27/23 12:00 Temperature 98.3 F 98.3 F Pulse Rate 65 65 69 Respiratory Rate 16 16 Blood Pressure 120/61 120/61 Pulse Oximetry 100 100 Oxygen Delivery Fraction of Inspired Oxygen 07/27/23 20:05 07/27/23 20:05 07/27/23 22:00 Temperature 98.4 F Pulse Rate 68 65 71 Respiratory Rate 16 20 Blood Pressure 117/54 L Pulse Oximetry 100 99 Oxygen Delivery Room Air Fraction of Inspired Oxygen 07/28/23 00:00 07/28/23 04:00 07/28/23 08:25 Temperature Pulse Rate 63 57 L Respiratory Rate Blood Pressure Pulse Oximetry Oxygen Delivery Room Air Fraction of Inspired Oxygen Intake/Output Intake/Output: Intake & Output 07/25/23 07/26/23 07/27/23 07/28/23 23:59 23:59 23:59 23:59 Intake Total 1295 1200 1760 480 Output Total 1500 400 950 Balance -205 800 810 480 Meds/Results Medications: Active Medications Generic Name Dose Route Start Last Admin Trade Name Freq PRN Reason Stop Dose Admin Acetaminophen 650 mg 07/23/23 21:42 07/27/23 22:27 Acetaminophen 325 Mg Tablet PO 650 mg Q6H PRN Administration Mild Pain (1-3) or Fever Atorvastatin Calcium 40 mg 07/24/23 21:00 07/27/23 20:45 Atorvastatin 40 Mg Tablet PO 40 mg HS ASHLEY Administration Cyproheptadine HCl 4 mg 07/23/23 21:38 07/26/23 09:03 Cyproheptadine Hcl 4 Mg Tablet PO 4 mg Q8H PRN Administration Itching Fluticasone Propionate 1 spray 07/24/23 09:00 07/28/23 08:24 Flut
[2023-07-28] MEDS: ACETAMINOPHEN 325 MG TABLET 650 MG PO (19:47)
[2023-07-28] MEDS: ATORVASTATIN 40 MG TABLET PO (20:57)
[2023-07-28] MEDS: MELATONIN 3 MG TABLET PO (20:57)
[2023-07-28] MEDS: SENNA/DOCUSATE SODIUM TABLET 1 TAB PO (20:57)
[2023-07-29] VITALS (11 sets, daily range): BP systolic 89–118; BP diastolic 47–72; PULSE 54–70; RESP 16–20; TEMP 36.2–36.7; O2SAT 98–100
[2023-07-29 07:23] LABS: Alanine Aminotransferase 26 U/L (6-50); Albumin Level 2.4 g/dL (3.5-5.1); Alkaline Phosphatase 59 U/L (38-126); Anion Gap 4 mmol/L (8-16); Aspartate Amino Transferase 22 U/L (17-59); Bilirubin,Total 1.5 mg/dL (0.2-1.3); Blood Urea Nitrogen 15 mg/dL (9-20); Calcium 7.8 mg/dL (8.4-10.2); Carbon Dioxide 25 mmol/L (22-30); Chloride 106 mmol/L (98-107); Estimated CRCL calculation 84 ml/min; Estimated Glomerular Filt Rate > 60; Glucose 99 mg/dL (65-110); Magnesium 2.1 mg/dL (1.6-2.3); Sodium 135 mmol/L (137-145)
[2023-07-29 07:36] LABS: Hematocrit 27.2 % (42.0-52.0); Hemoglobin 8.8 g/dL (14.0-18.0); Mean Corpuscular HGB Conc 32.4 g/dl (32-36); Mean Corpuscular Hemoglobin 32.1 pg (26-34); Mean Corpuscular Volume 99.3 fl (80-100); Mean Platelet Volume 9.4 fl (7.4-10.4); Platelet Count Result 309 k/mm3 (150-375); Red Blood Count 2.74 M/mm3 (4.6-6.20); Red Cell Distribution Width 16.4 % (11.5-14.5); White Blood Count 8.3 K/mm3 (4.5-10.0)
--- NOTE | 2023-07-29 08:17 | PM.IMPN ---
Progress Note: A&P Assessment and Plan (1) Upper GI bleed: Code(s): K92.2 - Gastrointestinal hemorrhage, unspecified Status: Acute Assessment and Plan: Patient was transfused 1 unit of PRBC on presentation 07/24 EGD showed reflux esophagitis, hiatal hernia, gastritis, duodenal ulcer 07/25 hemoglobin 6.2 and patient was transfuse 1 more unit of PRBC 07/26 hemoglobin stable and no signs of active bleeding Continue serial monitoring but less frequently and transfuse if needed Continue pPI to IV q.12 hours 01/03 Hb 7.0, give 1 unit of pack RBC, no obvious bleeding. Hemoglobin 1.8, follow up haptoglobin, pathologist review of peripheral blood smear, 01/31 Hemoglobin 8.6 morning after 1 pack RBC transfusion yesterday. 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 Patient was treated at [facility] and was then discharged to [facility] where he has been working with physical therapy. Patient has been on aspirin which has been on hold this time due to GI bleed He is on statin Repeat echo and carotid Dopplers-see below (4) Hypotension: Code(s): I95.9 - Hypotension, unspecified Status: Acute Assessment and Plan: Patient had hypotension on arrival likely secondary to volume loss. Improved with blood transfusion IV fluids Monitor (5) Syncope: Code(s): R55 - Syncope and collapse Status: Acute Assessment and Plan: Although etiology is not fully clear I but I suspect that patient's syncope was likely secondary to GI bleed and hypotension No recurrence since coming to hospital Carotid Dopplers were done this morning and showed IMPRESSION: 1. <50% stenosis in the right internal carotid artery. 2. <50% stenosis in the left internal carotid artery. Echo Summary ? 1. Left ventricular chamber dimension is normal. ? 2. There is mildly increased left ventricular wall thickness. ? 3. Left ventricular systolic function is hyperdynamic, estimated at 65-70%. ? 4. The left ventricular diastolic function is grade I diastolic dysfunction. ? 5. There is mild tricuspid valve regurgitation. EKG shows normal sinus rhythm and currently he is in sinus rhythm Continue telemetry monitoring PT evaluation (6) Dysphagia: Code(s): R13.10 - Dysphagia, unspecified Status: Acute Assessment and Plan: Patient has history of dysphagia since his CVA and is on modified diet Nurse reported the patient was having some difficulty with the current ordered diet. 07/25 patient had repeat swallow evaluation and is now on modified diet (7) Electrolyte abnormality: Code(s): E87.8 - Other disorders of electrolyte and fluid balance, not elsewhere classified Status: Acute Assessment and Plan: Potassium replacement Plan DVT prophylaxis -SCDs Stress ulcer prophylaxis -PPI Nutrition -liquid Code Status -patient is DNR PT OT eval Transfer out of ICU today Subjective Date/time seen: 07/29/23 08:17 Interval history: Patient denies abdomen pain, nausea vomiting black stool. Received one unit prbc before yesterday, patient feeling better, no discomfort. Hgb from 7 < 8.9 <8.8 in past 3 days Exam Narrative: General: Pt is alert awake and in NAD Lungs/Chest: Trachea central Clear BS B/L, No crackles or wheezing. Cardiac: RRR. Normal S1 S2. No murmurs Circulation: Pedal pulses are intact and symmet
[2023-07-29] MEDS: IRON SUCROSE COMPLEX 100 MG in SODIUM CHLORIDE 0.9% IV 50 ML 220 MG IVPB (09:00)
[2023-07-29] MEDS: LORATADINE 10 MG TABLET PO (09:01)
[2023-07-29] MEDS: PANTOPRAZOLE SODIUM IV 40 MG VIAL IV PUSH ×2 (09:01→21:53)
[2023-07-29] MEDS: FLUTICASONE PROPIONATE 0.05% NA SPR 16 GM BTL (*BKC) 1 SPRAY NASAL ×2 (09:10→21:53)
--- NOTE | 2023-07-29 13:49 | WPDGIPROGNO ---
Progress Note: A&P Assessment and Plan (1) Duodenal ulcer hemorrhage: Code(s): K26.4 - Chronic or unspecified duodenal ulcer with hemorrhage Status: Acute Assessment and Plan: treated with epi and gold probe *duodenal ulcer was actively bleeding also had ulcerative gastritis but no active bleeding he can be discharged with protonix twice daily, avoid asa and nsaid's hgb stable mid 8's (2) Upper GI bleed: Code(s): K92.2 - Gastrointestinal hemorrhage, unspecified Status: Acute Assessment and Plan: treated with egd continue with protonix on diet with aspiration precaution (3) Acute on chronic blood loss anemia: Code(s): D62 - Acute posthemorrhagic anemia Status: Acute Assessment and Plan: low but stable after one unit prbc 2 days ago (4) CVA (cerebral vascular accident): Code(s): I63.9 - Cerebral infarction, unspecified Status: Acute Assessment and Plan: physical therapy, may need short term rehab Subjective Date/time seen: 07/29/23 13:49 Interval history: he is doing well, no more melena Review of Systems Review of Systems: All systems reviewed & are unremarkable except as noted in HPI and below Exam Narrative: General: Pt is alert awake and in NAD Neck: supple Lungs/Chest: Trachea central Clear BS B/L, No crackles or wheezing. Cardiac: RRR. Normal S1 S2. No murmurs Circulation: Pedal pulses are intact and symmetrical. Abdomen: Normal bowel sounds. Soft. NT. ND. Extremities: No clubbing, cyanosis or edema. Warm : Aaron in place Neurologic: Follows commands. AO x 3 Moves all 4 extremities PERRL, left hemiparesis Skin: No Rash Objective Data Vital Signs Vital Signs: Vital Signs - 24 hr 07/28/23 13:51 07/28/23 16:00 07/28/23 22:00 Temperature 98.0 F 96.9 F L Pulse Rate 57 L 65 62 Respiratory Rate 20 20 Blood Pressure 119/65 129/63 Pulse Oximetry 100 99 07/28/23 20:00 07/29/23 00:00 07/29/23 04:00 Temperature Pulse Rate 64 57 L 57 L Respiratory Rate Blood Pressure Pulse Oximetry 07/29/23 06:00 Temperature 97.3 F L Pulse Rate 54 L Respiratory Rate 20 Blood Pressure 118/53 L Pulse Oximetry 100 Intake/Output Intake/Output: Intake & Output 07/26/23 07/27/23 07/28/23 07/29/23 23:59 23:59 23:59 23:59 Intake Total 1200 1760 1335 600 Output Total 400 950 600 525 Balance 800 810 735 75 Meds/Results Medications: Active Medications Generic Name Dose Route Start Last Admin Trade Name Freq PRN Reason Stop Dose Admin Acetaminophen 650 mg 07/23/23 21:42 07/28/23 19:47 Acetaminophen 325 Mg Tablet PO 650 mg Q6H PRN Administration Mild Pain (1-3) or Fever Atorvastatin Calcium 40 mg 07/24/23 21:00 07/28/23 20:57 Atorvastatin 40 Mg Tablet PO 40 mg HS ASHLEY Administration Cyproheptadine HCl 4 mg 07/23/23 21:38 07/26/23 09:03 Cyproheptadine Hcl 4 Mg Tablet PO 4 mg Q8H PRN Administration Itching Fluticasone Propionate 1 spray 07/24/23 09:00 07/28/23 20:56 Fluticasone Propionate 0.05% Na Spr 16 Gm Btl (*Bkc) NASAL 1 spray Q12HR ASHLEY Administration Hydroxyzine HCl 50 mg 07/23/23 21:39 07/25/23 20:33 Hydroxyzine Hcl 25 Mg Tablet PO 50 mg HS PRN Administration Insomnia Iron Sucrose 100 mg/ Sodium 55 mls @ 220 mls/hr 07/24/23 09:00 07/29/23 09:00 Chloride IVPB 220 mls/hr QAM ASHLEY Administration Loratadine 10 mg 07/24/23 09:00 07/29/23 09:01 Loratadine 10 Mg Tablet PO 10 mg QAM ASHLEY Administration Melatonin 3 mg 07/24/23 21:00 07/28/23 20:57 Melatonin 3 Mg Tablet PO 3 mg HS ASHLEY Administration Ondansetron HCl 4 mg 07/23/23 16:49 Ondansetron Inj 4 Mg/2 Ml Vial IV PUSH Q4H PRN Nausea Pantoprazole Sodium 40 mg 07/25/23 09:00 07/29/23 09:01 Pantoprazole Sodium Iv 40 Mg Vial IV PUSH 40 mg Q12HR ASHLEY Administration Senna/Docusate Sodium 1 tab 07/24/23 21:00
[2023-07-29] MEDS: MELATONIN 3 MG TABLET PO (21:53)
[2023-07-29] MEDS: ATORVASTATIN 40 MG TABLET PO (21:53)
[2023-07-29] MEDS: SENNA/DOCUSATE SODIUM TABLET 1 TAB PO (21:53)
--- NOTE | 2023-07-29 23:41 | PC.NURSE ---
medication manually administered due to [employer] downtime.
[2023-07-30] VITALS: PULSE 55
[2023-07-30 04:00] VITALS: PULSE 53
[2023-07-30 05:27] VITALS: BP 143/67; PULSE 64; RESP 16; TEMP 36.1; O2SAT 99
[2023-07-30 06:29] LABS: Hematocrit 27.7 % (42.0-52.0); Mean Corpuscular HGB Conc 32.5 g/dl (32-36); Mean Corpuscular Hemoglobin 32.4 pg (26-34); Mean Corpuscular Volume 99.6 fl (80-100); Mean Platelet Volume 9.1 fl (7.4-10.4); Platelet Count Result 309 k/mm3 (150-375); Red Blood Count 2.78 M/mm3 (4.6-6.20); Red Cell Distribution Width 16.3 % (11.5-14.5); White Blood Count 8.3 K/mm3 (4.5-10.0)
[2023-07-30 06:44] LABS: Alanine Aminotransferase 23 U/L (6-50); Albumin Level 2.6 g/dL (3.5-5.1); Alkaline Phosphatase 59 U/L (38-126); Anion Gap 3 mmol/L (8-16); Aspartate Amino Transferase 21 U/L (17-59); Bilirubin,Total 1.3 mg/dL (0.2-1.3); Blood Urea Nitrogen 12 mg/dL (9-20); Calcium 7.9 mg/dL (8.4-10.2); Carbon Dioxide 26 mmol/L (22-30); Chloride 107 mmol/L (98-107); Estimated CRCL calculation 84 ml/min; Estimated Glomerular Filt Rate > 60; Glucose 101 mg/dL (65-110); Magnesium 2.3 mg/dL (1.6-2.3); Sodium 136 mmol/L (137-145)
--- NOTE | 2023-07-30 08:46 | PM.DS ---
DS: Admitting Diagnosis Discharge Date today Admitting Diagnosis Acute GI bleeding Acute blood loss anemia Syncope DS: Discharge Diagnosis Discharge Diagnosis (1) Upper GI bleed: Code(s): K92.2 - Gastrointestinal hemorrhage, unspecified Status: Acute Assessment and Plan: Patient was transfused 1 unit of PRBC on presentation 07/24 EGD showed reflux esophagitis, hiatal hernia, gastritis, duodenal ulcer 07/25 hemoglobin 6.2 and patient was transfuse 1 more unit of PRBC 07/26 hemoglobin stable and no signs of active bleeding Continue serial monitoring but less frequently and transfuse if needed Continue pPI to IV q.12 hours 07/28 Hb 7.0, give 1 unit of pack RBC, no obvious bleeding. Hemoglobin 1.8, follow up haptoglobin, pathologist review of peripheral blood smear, 07/29 Hemoglobin 8.6 morning after 1 pack RBC transfusion yesterday. 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 Patient was treated at [facility] and was then discharged to [facility] where he has been working with physical therapy. Patient has been on aspirin which has been on hold this time due to GI bleed He is on statin Repeat echo and carotid Dopplers-see below (4) Hypotension: Code(s): I95.9 - Hypotension, unspecified Status: Acute Assessment and Plan: Patient had hypotension on arrival likely secondary to volume loss. Improved with blood transfusion IV fluids Monitor (5) Syncope: Code(s): R55 - Syncope and collapse Status: Acute Assessment and Plan: Although etiology is not fully clear I but I suspect that patient's syncope was likely secondary to GI bleed and hypotension No recurrence since coming to hospital Carotid Dopplers were done this morning and showed IMPRESSION: 1. <50% stenosis in the right internal carotid artery. 2. <50% stenosis in the left internal carotid artery. Echo Summary ? 1. Left ventricular chamber dimension is normal. ? 2. There is mildly increased left ventricular wall thickness. ? 3. Left ventricular systolic function is hyperdynamic, estimated at 65-70%. ? 4. The left ventricular diastolic function is grade I diastolic dysfunction. ? 5. There is mild tricuspid valve regurgitation. EKG shows normal sinus rhythm and currently he is in sinus rhythm Continue telemetry monitoring PT evaluation (6) Dysphagia: Code(s): R13.10 - Dysphagia, unspecified Status: Acute Assessment and Plan: Patient has history of dysphagia since his CVA and is on modified diet Nurse reported the patient was having some difficulty with the current ordered diet. 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 Per care home report, patient was found have black stools today and also had episode of syncope.? And therefore patient was brought to ED f
[2023-07-30] MEDS: IRON SUCROSE COMPLEX 100 MG in SODIUM CHLORIDE 0.9% IV 50 ML 220 MG IVPB (09:52)
[2023-07-30 09:53] VITALS: PULSE 52
[2023-07-30] MEDS: FLUTICASONE PROPIONATE 0.05% NA SPR 16 GM BTL (*BKC) 1 SPRAY NASAL (09:53)
[2023-07-30] MEDS: PANTOPRAZOLE SODIUM IV 40 MG VIAL IV PUSH (09:53)
[2023-07-30] MEDS: LORATADINE 10 MG TABLET PO (09:53)
[2023-07-30 12:00] VITALS: PULSE 53
--- NOTE | 2023-07-30 12:33 | WPDGIPROGNO ---
Progress Note: A&P Assessment and Plan (1) Duodenal ulcer hemorrhage: Code(s): K26.4 - Chronic or unspecified duodenal ulcer with hemorrhage Status: Acute Assessment and Plan: treated with epi and gold probe *duodenal ulcer was actively bleeding also had ulcerative gastritis but no active bleeding continue with protonix twice daily, avoid asa and nsaid's hgb stable mid 8's no objections to discharge (2) Upper GI bleed: Code(s): K92.2 - Gastrointestinal hemorrhage, unspecified Status: Acute Assessment and Plan: treated with egd continue with protonix on diet with aspiration precaution (3) Acute on chronic blood loss anemia: Code(s): D62 - Acute posthemorrhagic anemia Status: Acute Assessment and Plan: low but stable after one unit prbc 3 days ago (4) CVA (cerebral vascular accident): Code(s): I63.9 - Cerebral infarction, unspecified Status: Acute Assessment and Plan: physical therapy, may need short term rehab Subjective Date/time seen: 07/30/23 12:33 Interval history: no more bleeding, he is comfortable Review of Systems Review of Systems: All systems reviewed & are unremarkable except as noted in HPI and below Exam Narrative: General: Pt is alert awake and in NAD Neck: supple Lungs/Chest: Trachea central Clear BS B/L, No crackles or wheezing. Cardiac: RRR. Normal S1 S2. No murmurs Circulation: Pedal pulses are intact and symmetrical. Abdomen: Normal bowel sounds. Soft. NT. ND. Extremities: No clubbing, cyanosis or edema. Warm : Aaron in place Neurologic: Follows commands. AO x 3 Moves all 4 extremities PERRL, left hemiparesis Skin: No Rash Objective Data Vital Signs Vital Signs: Vital Signs - 24 hr 07/29/23 14:00 07/29/23 16:00 07/29/23 20:24 Temperature 98.1 F 97.2 F L Pulse Rate 70 69 62 Respiratory Rate 20 16 Blood Pressure 108/60 89/47 L Pulse Oximetry 98 98 07/29/23 22:30 07/29/23 23:34 07/29/23 20:00 Temperature Pulse Rate 70 61 Respiratory Rate Blood Pressure 100/60 116/72 Pulse Oximetry 07/30/23 00:00 07/30/23 04:00 07/30/23 05:27 Temperature 97.0 F L Pulse Rate 55 L 53 L 64 Respiratory Rate 16 Blood Pressure 143/67 H Pulse Oximetry 99 07/30/23 09:53 Temperature Pulse Rate 52 L Respiratory Rate Blood Pressure Pulse Oximetry Intake/Output Intake/Output: Intake & Output 07/27/23 07/28/23 07/29/23 07/30/23 23:59 23:59 23:59 23:59 Intake Total 1760 1335 1135 120 Output Total 271 301 5397 650 Balance 810 735 85 -530 Meds/Results Medications: Active Medications Generic Name Dose Route Start Last Admin Trade Name Freq PRN Reason Stop Dose Admin Acetaminophen 650 mg 07/23/23 21:42 07/28/23 19:47 Acetaminophen 325 Mg Tablet PO 650 mg Q6H PRN Administration Mild Pain (1-3) or Fever Atorvastatin Calcium 40 mg 07/24/23 21:00 07/29/23 21:53 Atorvastatin 40 Mg Tablet PO 40 mg HS ASHLEY Administration Cyproheptadine HCl 4 mg 07/23/23 21:38 07/26/23 09:03 Cyproheptadine Hcl 4 Mg Tablet PO 4 mg Q8H PRN Administration Itching Fluticasone Propionate 1 spray 07/24/23 09:00 07/30/23 09:53 Fluticasone Propionate 0.05% Na Spr 16 Gm Btl (*Bkc) NASAL 1 spray Q12HR ASHLEY Administration Hydroxyzine HCl 50 mg 07/23/23 21:39 07/25/23 20:33 Hydroxyzine Hcl 25 Mg Tablet PO 50 mg HS PRN Administration Insomnia Iron Sucrose 100 mg/ Sodium 55 mls @ 220 mls/hr 07/24/23 09:00 07/30/23 09:52 Chloride IVPB 220 mls/hr QAM ASHLEY Administration Loratadine 10 mg 07/24/23 09:00 07/30/23 09:53 Loratadine 10 Mg Tablet PO 10 mg QAM ASHLEY Administration Melatonin 3 mg 07/24/23 21:00 07/29/23 21:53 Melatonin 3 Mg Tablet PO 3 mg HS ASHLEY Administration Ondansetron HCl 4 mg 07/23/23 16:49 Ondansetron Inj 4 Mg/2 Ml Vial IV PUSH Q4H PRN Nausea Pantoprazole Sodium
[2023-07-30 12:54] LABS: SARS-CoV-2 RNA PCR Negative (Negative)
[2023-07-30 14:00] VITALS: BP 120/65; PULSE 56; RESP 16; TEMP 37.1; O2SAT 100
[2023-07-30 19:26] LABS: Haptoglobin 157 mg/dL (43-212)
== END 2023-07-30 15:10 | DRG 377 ==
LOC: ANHED 17:00 → ANHICU 17:29 → ANH3MEDSUR 07-26 14:05
PROVIDERS: Internal Medicine; Internal Medicine Gastroenterology; Student in an Organized Health Care Education/Training Program; Admitting Provider Internal Medicine; Emergency Provider General Practice; Visit Provider Hospitalist
PROC: 0DJ08ZZ Inspection of Upper Intestinal Tract, Via Natural or Artificial Opening Endoscopic (ICD-10-PCS; CPT 43235; principal; 2023-07-24 12:45)
DX: K26.0 Acute duodenal ulcer with hemorrhage (principal); R57.8 Other shock; D62 Acute posthemorrhagic anemia; I69.354 Hemiplegia and hemiparesis following cerebral infarction affecting left non-dominant side; E87.1 Hypo-osmolality and hyponatremia; K29.00 Acute gastritis without bleeding; R55 Syncope and collapse; I95.89 Other hypotension; R13.10 Dysphagia, unspecified; I69.328 Other speech and language deficits following cerebral infarction; I69.391 Dysphagia following cerebral infarction; E87.8 Other disorders of electrolyte and fluid balance, not elsewhere classified; K21.00 Gastro-esophageal reflux disease with esophagitis, without bleeding; K44.9 Diaphragmatic hernia without obstruction or gangrene; Z20.822 Contact with and (suspected) exposure to COVID-19; Z66 Do not resuscitate
CPT/HCPCS: 36415; 36430; 36600; 70450; 70496; 70498; 71045; 80048; 80053; 81001; 82375; 82805; 83010; 83050; 83735; 85014; 85018; 85025; 85027; 85610; 85730; 86850; 86900; 86901; 86920; 86923; 87081; 87635; 87637; 88305; 92610; 93005; 93880; 96361; 96374; 96375; 97110; 97112; 97116; 97161; 97166; 97530; 97535; 99284; 99285; A9270; C8929; C9113; J0171; J1756; J2371; J2704; J7030; J7040; J7050; J7120; J7121; P9016; Q9957; Q9967

== ENCOUNTER 2023-12-07 16:34 | Inpatient (IN) | payer MEDICARE, OTHER, SELFPAY ==
--- NOTE | ~2023-12-07 | XR_ITS ---
Portable chest x-ray Comparison: 07/22/2023 Clinical History: Preoperative clearance Findings: Lungs are clear, without focal consolidation or pleural effusion. Cardiomediastinal silho uette is stable, with loop recorder. Bones and soft tissues are unremarkable. Impression: Clear lungs. Reviewed, dictated and finalized at location . 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
--- NOTE | ~2023-12-07 | CT_ITS ---
CT head without contrast Indication: Altered mental status COMPARISON: 07/14/2023 Technique: Serial scans were obtained through the brain without the administration of contrast. Dose reduction technique was used on this scan by utilizing automated exposure control and iterative recon struction technique. The dose-length product (DLP) was 605.33 mGy-cm. Findings: There is no evidence of intracranial hemorrhage, mass lesion, or acute infarct. Chronic rig ht frontal lobe infarct noted extending to the insular cortex region and right parietal lobe. The luis tricles and subarachnoid spaces are dilated, consistent with mild atrophy. Low attenuation regions a re seen within the periventricular white matter bilaterally, likely representing changes from chronic microvascular ischemic disease. There is no evidence of edema, mass effect or midline shift. The v isualized paranasal sinuses and mastoid air cells are clear. Impression: No intracranial hemorrhage, mass, or acute infarct. Chronic infarct in the right middle cerebral artery distribution. Atrophy and chronic white matter changes, as above. Reviewed, dictated and finalized at location . T PSYCHIATRIST Impression: No intracranial hemorrhage, mass, or acute infarct. Chronic infarct in the right middle cerebral artery distribution. Atrophy and chronic white matter changes, as above.
--- NOTE | ~2023-12-07 | XR_ITS ---
AP view of the pelvis and AP and lateral views of the left hip Clinical history: Pain Findings: There is an acute, mild comminuted intertrochanteric fracture of the proximal left femur wi th increased varus angulation of the major distal fracture fragment.. Bilateral hip and SI joint spac es are preserved. Soft tissues are unremarkable. Impression: Acute intertrochanteric fracture of the proximal left femur, as detailed above. Reviewed, dictated and finalized at location M. ER ATTENDANT Impression: Acute intertrochanteric fracture of the proximal left femur, as detailed above.
--- NOTE | ~2023-12-07 | XR_ITS ---
XR surgery orthopedic DATE: 12/09/2023 15:34 INDICATION: Intertrochanteric hip fracture TECHNIQUE: 4 spot C-arm images of the proximal left femur 203.4 seconds fluoroscopy time 71.71 mGy COMPARISON: 12/07/2023 left hip FINDINGS: Intramedullary nail with interlocking compression screw extending into left femoral head an d transverse interlocking femoral shaft screw, providing near-anatomic position and alignment of the previously reported intertrochanteric fracture of the proximal left femur, with reduction of the varu s angulation. IMPRESSION: ORIF left intertrochanteric hip fracture Reviewed, dictated and finalized at Location A. Reviewed, dictated and finalized at location L. IPLE NEEDLE STITCHER
[2023-12-07 16:37] VITALS: BP 152/72; PULSE 81; RESP 17; TEMP 36.4; O2SAT 98
[2023-12-07 16:47] VITALS: BP 127/69; PULSE 84; RESP 20; O2SAT 100
--- NOTE | 2023-12-07 16:51 | ED.FALL ---
HPI - Fall General Chief Complaint: Fall Stated Complaint: hip injury History of Present Illness HPI Narrative: 78-year-old male presenting with left hip pain. Patient states that he got tangled in some curtains which caused him to fall onto his left side. Had immediate left hip pain especially when he tried to sit up. Unable to ambulate. Denies striking his head or loss of consciousness. No neck or back pain. Received some morphine from EMS and states that his pain is currently controlled. No further complaints. Related Data Home Medications Medication Instructions Recorded Confirmed acetaminophen 325 mg tablet 325 mg PO PRN PRN Pain (Scale 07/19/23 08/08/23 (Tylenol) Score 4-6) atorvastatin 40 mg tablet 40 mg PO HS 07/23/23 08/08/23 cetirizine 10 mg tablet (Zyrtec) 10 mg PO DAILY 07/23/23 08/08/23 cyproheptadine 4 mg tablet 4 mg PO Q8H 07/23/23 08/08/23 guaifenesin 200 mg/5 mL oral syrup 200 mg PO DAILY 07/23/23 08/08/23 hydroxyzine HCl 50 mg tablet 50 mg PO PRN 07/23/23 08/08/23 melatonin 3 mg tablet 3 mg PO HS 07/23/23 08/08/23 sennosides 8.6 mg-docusate sodium 1 tablet PO HS 07/23/23 08/08/23 50 mg tablet (Senna with Docusate Sodium) Allergies Allergy/AdvReac Type Severity Reaction Status Date / Time No Known Allergies Allergy Verified 07/24/23 11:29 Review of Systems Review of Systems: All systems reviewed & are unremarkable except as noted in HPI and below PMFSH Past Medical History Medical History Anemia CVA (cerebral vascular accident) Duodenal ulcer hemorrhage Social History Social History Smoking status: Never smoker Alcohol intake: unknown Drinks per week: 0 Substance use: unknown Substance use type: does not use Spiritual care concerns: No Exam Narrative: GENERAL: Nontoxic, no acute distress, very pleasant cooperative HEAD: Normocephalic, atraumatic. EYES: PERRLA and EOMI. ENT: Mucous membranes tacky NECK: Supple. CHEST: No respiratory distress. HEART: Regular rate and rhythm ABDOMEN: Soft, nontender, nondistended EXTREMITIES: LLE shortened, externally rotated, 2+ DP pulses, L hip with diffuse tenderness SKIN: Warm, dry, no rash. NEURO: Alert and oriented x3. at baseline PSYCH: Normal mood and affect. Course Vital Signs Vital signs: Vital Signs Temperature 97.6 F 12/07/23 16:37 Pulse Rate 81 12/07/23 16:37 Respiratory Rate 17 12/07/23 16:37 Blood Pressure 152/72 H 12/07/23 16:37 Pulse Oximetry 98 12/07/23 16:37 Oxygen Delivery Room Air 12/07/23 16:37 Temperature 97.6 F 12/07/23 16:37 Pulse Rate 84 12/07/23 16:47 Respiratory Rate 20 12/07/23 16:47 Blood Pressure 127/69 12/07/23 16:47 Pulse Oximetry 100 12/07/23 16:47 Oxygen Delivery Room Air 12/07/23 16:37 MDM - Fall MDM Narrative Medical decision making narrative: 78-year-old male presenting with left hip pain after a fall. Vitals are stable. Exam remarkable for the above. X-ray reveals an acute left intertrochanteric fracture of the femur. Preop labs are unremarkable. He spoke with orthopedics who is happy to see him. I spoke with Medicine has accepted him for admission. Patient is agreeable with this plan. Differential Diagnosis Differential diagnosis: Likely other ( Fall, hip pain, fractured hip) Medical Records Attestation: I reviewed the patient's medical records. Lab Data Attestation: I reviewed the patient's lab results. 12/07/23 17:11 12/07/23 17:11 Labs: Lab Results 12/07/23 Range/Units 17:11 WBC 5.8 (4.5-10.0) K/mm3 RBC 4.18 L (4.6-6.20) M/mm3 Hgb 12.9 L D (14.0-18.0) g/dL Hct 39.8 L (42.0-52.0) % MCV 95.2 (80-100) fl MCH 30.9 (26-34) pg MCHC 32.4 (32-36) g/dl RDW 13.3 (11.5-14.5) % Plt Count 161 (150-375) k/mm3 MPV 9.7 (7.4-10.4) fl Immatu
[2023-12-07 17:19] LABS: Basophils Percent Auto 0.3 % (0.2-1.2); Eosinophils Percent Auto 0.2 % (0-4.4); Hematocrit 39.8 % (42.0-52.0); Hemoglobin 12.9 g/dL (14.0-18.0); Immature Granulocyte Absolute 0.03 K/mm3 (0.00-0.031); Immature Granulocyte Percent A 0.5 % (0-0.5); Lymphocytes Absolute Auto 0.23 K/mm3 (0.9-3.2); Mean Corpuscular HGB Conc 32.4 g/dl (32-36); Mean Corpuscular Hemoglobin 30.9 pg (26-34); Mean Corpuscular Volume 95.2 fl (80-100); Mean Platelet Volume 9.7 fl (7.4-10.4); Monocytes Absolute Auto 0.6 K/mm3 (0.1-0.6); Monocytes Percent Auto 9.9 % (2.6-8.5); Neutrophils Absolute Auto 4.9 K/mm3 (1.3-6.7); Neutrophils Percent Auto 85.1 % (45.5-73.1); Platelet Count Result 161 k/mm3 (150-375); Red Blood Count 4.18 M/mm3 (4.6-6.20); Red Cell Distribution Width 13.3 % (11.5-14.5); White Blood Count 5.8 K/mm3 (4.5-10.0)
[2023-12-07 17:32] LABS: INR 1.1; Prothrombin Time 15.1 Seconds (11.1-14.7)
[2023-12-07 17:33] LABS: Alanine Aminotransferase 40 U/L (6-50); Albumin Level 3.6 g/dL (3.5-5.1); Alkaline Phosphatase 98 U/L (38-126); Anion Gap 8 mmol/L (8-16); Aspartate Amino Transferase 45 U/L (17-59); Bilirubin,Total 2.9 mg/dL (0.2-1.3); Blood Urea Nitrogen 21 mg/dL (9-20); Calcium 8.8 mg/dL (8.4-10.2); Carbon Dioxide 26 mmol/L (22-30); Chloride 101 mmol/L (98-107); Estimated CRCL calculation 72 ml/min; Estimated Glomerular Filt Rate > 60; Glucose 112 mg/dL (65-110); Partial Thromboplastin Time 33.7 SECONDS (22.3-36.8); Potassium 3.7 mmol/L (3.4-5.0); Sodium 135 mmol/L (137-145)
[2023-12-07 17:39] LABS: Platelet Estimate Adequate (Adequate); Schistocytes None Seen (NORMAL)
[2023-12-07 18:42] VITALS: BP 132/79; PULSE 90; RESP 20; O2SAT 97
--- NOTE | 2023-12-07 20:14 | ADMGEN ---
This patient, Edilberto Ellison, was admitted to 3 [facility] Surg Room 325-01. Patient/family oriented to hospital policies and general routines including ID bracelet, bed and alarms, visiting hours, pain management, procedures, bathroom and other care routines, personal items, smoking policy, room service/diet, and visiting hours. Information on how to activate the Rapid Response Team has been discussed. Patient/Family are encouraged to report perceived risks to care and to ask questions if they do not understand what they are told or what they should do.
--- NOTE | 2023-12-07 21:13 | PM.IMHP ---
H&P: HPI History of Present Illness Date/Time: 12/07/23 20:30 Chief Complaint: Left hip pain after fall. 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 The patient provides the following history however some of the following is obtained via a review of his EMR as he seems confused as to what happened today. Just prior to arrival he was reportedly putting a food tray away when he lost his balance and fell onto the left hip and he has not been able to bear weight on that leg due to pain. He told the ED physician that he got tangled in some curtains and told me that he slipped out of bed. He denies head trauma and loss consciousness in the fall and reports that it was purely mechanical but it does not seem as though he remembers what happened exactly. Left leg was shortened and externally rotated arrival and imaging that left hip showed an inter trochanteric fracture and he is being admitted in setting for pain control and orthopedic. He denies fever, cold and flu symptoms, syncope, headache, vertigo, focal weakness paresthesias, chest pain, shortness of breath, nausea, vomiting, diarrhea, and dysuria. Patient denies history of coronary artery disease. Echocardiogram in June 2023 showed hyperdynamic LV systolic function with an EF of 65 to 70% and grade 1 diastolic dysfunction Review of Systems Review of Systems: Twelve systems were reviewed and are negative except for as per HPI however he seems a bit confused thus it is unclear how accurate of a historian he is. [facility] Past Medical History Medical History (Updated 12/07/23 @ 21:26 by Yodit Morse PA-C) Anemia Cerebrovascular accident (06/2023) Right parietal ischemic stroke with possible hemorrhagic conversion. Duodenal ulcer hemorrhage (06/2023) Gastroesophageal reflux disease Surgical History Surgical History (Updated 12/07/23 @ 21:22 by Yodit Morse PA-C) History of cataract extraction with lens replacement Family History Family History (Updated 12/07/23 @ 21:22 by Yodit Morse PA-C) Other Family history unknown Social History Social History (Updated 12/07/23 @ 21:23 by Yodit Morse PA-C) Social History: Surrogate medical decision maker: Ross Sesay, spouse. Code status: Full code. 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 Spiritual care concerns: No Meds Home Medications and Allergies Home Medications Medication Instructions Recorded Confirmed Type acetaminophen 325 mg tablet 325 mg PO PRN PRN Pain (Scale 07/19/23 08/08/23 History (Tylenol) Score 4-6) atorvastatin 40 mg tablet 40 mg PO HS 07/23/23 08/08/23 History cetirizine 10 mg tablet (Zyrtec) 10 mg PO DAILY 07/23/23 08/08/23 History cyproheptadine 4 mg tablet 4 mg PO Q8H 07/23/23 08/08/23 History guaifenesin 200 mg/5 mL oral syrup 200 mg PO DAILY 07/23/23 08/08/23 History hydroxyzine HCl 50 mg tablet 50 mg PO PRN 07/23/23 08/08/23 History melatonin 3 mg tablet 3 mg PO HS 07/23/23 08/08/23 History sennosides 8.6 mg-docusate sodium 1 tablet PO HS 07/23/23 08/08/23 History 50 mg tablet (Senna with Docusate Sodium) pantoprazole 40 mg tablet,delayed 40 mg PO BID #60 tabs 0
[2023-12-07 21:59] VITALS: BP 138/73; PULSE 96; RESP 16; TEMP 37.6; O2SAT 99
--- NOTE | 2023-12-08 | ECG_ITS ---
Measurements Intervals [place] Rate: 88 P: 59 [place]: 136 QRS: 41 QRSD: 85 T: -66 QT: 342 QTc: 415 Interpretive Statements SINUS RHYTHM ST-T WAVE ABNORMALITY IN ANT/INF LEADS- CONSIDER ISCHEMIA BASELINE WANDER- I, III ABNORMAL ECG COMPARED TO ECG 07/23/2023 15:25:54 ST-T WAVE ABNORMALITY NOW PRESENT Electronically Signed On 12-08-2023 14:47:16 METAL STUD FRAMER by Jorge Luis Sebastian D.O.
--- NOTE | 2023-12-08 01:49 | PC.NURSE ---
RN removed arce at 0100
[2023-12-08 04:45] VITALS: BP 122/70; PULSE 73; RESP 20; TEMP 36.6; O2SAT 98
[2023-12-08 06:21] LABS: Hematocrit 38.4 % (42.0-52.0); Hemoglobin 12.2 g/dL (14.0-18.0); Immature Platelet Fraction Pct 5.4 % (0.9-11.2); Mean Corpuscular HGB Conc 31.8 g/dl (32-36); Mean Corpuscular Volume 97.5 fl (80-100); Mean Platelet Volume 10.4 fl (7.4-10.4); Platelet Count Result 139 k/mm3 (150-375); Red Blood Count 3.94 M/mm3 (4.6-6.20); Red Cell Distribution Width 13.2 % (11.5-14.5); White Blood Count 6.5 K/mm3 (4.5-10.0)
[2023-12-08 06:39] LABS: Alanine Aminotransferase 33 U/L (6-50); Albumin Level 3.2 g/dL (3.5-5.1); Alkaline Phosphatase 82 U/L (38-126); Anion Gap 6 mmol/L (8-16); Aspartate Amino Transferase 30 U/L (17-59); Bilirubin,Total 2.5 mg/dL (0.2-1.3); Blood Urea Nitrogen 26 mg/dL (9-20); Calcium 8.4 mg/dL (8.4-10.2); Carbon Dioxide 24 mmol/L (22-30); Chloride 103 mmol/L (98-107); Estimated CRCL calculation 83 ml/min; Estimated Glomerular Filt Rate > 60; Glucose 119 mg/dL (65-110); Magnesium 2.1 mg/dL (1.6-2.3); Potassium 3.9 mmol/L (3.4-5.0); Sodium 133 mmol/L (137-145)
--- NOTE | 2023-12-08 11:37 | PM.IMPN ---
Progress Note: A&P Assessment and Plan (1) Intertrochanteric fracture of left femur: Code(s): S72.142A - Displaced intertrochanteric fracture of left femur, initial encounter for closed fracture Status: Acute Assessment and Plan: Orthopedic surgery consulted, plan for OR tomorrow NPO after midnight Medically cleared as low risk for intermediate risk surgery (2) Anemia: Code(s): D64.9 - Anemia, unspecified Status: Acute Assessment and Plan: Appears to be at or above baseline, monitor Check stool occult, monitor hgb closely post op (3) History of duodenal ulcer: Code(s): Z87.19 - Personal history of other diseases of the digestive system Status: Acute Assessment and Plan: History of bleeding duodenal ulcer June 2023, continue PPI Plan DVT prophylaxis with SCDs GI prophylaxis not indicated Code status DNR Subjective Date/time seen: 12/08/23 11:37 Interval history: 78-year-old male with history 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 No overnight events noted. No chest pain or shortness of breath. No nausea, vomiting or diarrhea. No fevers or chills. Review of Systems Review of Systems: 12 point review of systems was assessed and was negative except as noted in the HPI Exam Narrative: General: No acute distress, alert and oriented per baseline HEENT: Atraumatic, normocephalic, mucous membranes moist CV: Regular rate and rhythm, S1, S2 Lungs: Clear to auscultation bilaterally, no rales or crackles noted, no wheezes, good air entry Abdomen: Soft, nontender, nondistended Extremities: Normal to inspection Skin: No rashes noted, no lesions or wounds seen Psych: Euthymic, normal affect Objective Data Vital Signs Vital Signs: Vital Signs - 24 hr 12/07/23 16:37 12/07/23 16:47 12/07/23 18:42 Temperature 97.6 F Pulse Rate 81 84 90 Respiratory Rate 17 20 20 Blood Pressure 152/72 H 127/69 132/79 Pulse Oximetry 98 100 97 Oxygen Delivery Room Air 12/07/23 21:59 12/08/23 04:45 12/08/23 08:25 Temperature 99.6 F 97.8 F Pulse Rate 96 73 Respiratory Rate 16 20 Blood Pressure 138/73 122/70 Pulse Oximetry 99 98 Oxygen Delivery Room Air Intake/Output Intake/Output: Intake & Output 12/05/23 12/06/23 12/07/23 12/08/23 23:59 23:59 23:59 23:59 Intake Total 25 Balance 25 Meds/Results Medications: Active Medications Generic Name Dose Route Start Last Admin Trade Name Alexandra PRN Reason Stop Dose Admin Acetaminophen 650 mg 12/07/23 21:29 Acetaminophen 325 Mg Tablet PO Q6H PRN Mild Pain (1-3) or Fever Morphine Sulfate 2 mg 12/07/23 21:29 Morphine Sulfate (*Crx) 2 Mg/Ml Inj IV PUSH Q4H PRN Pain Rated 7-10 Radiology Results: ITS Impressions Hip/Pelvis X-Ray 12/07/23 17:10 Impression: Acute intertrochanteric fracture of the proximal left femur, as detailed above. Head CT 12/07/23 21:55 Impression: No intracranial hemorrhage, mass, or acute infarct. Chronic infarct in the right middle cerebral artery distribution. Atrophy and chronic white matter changes, as above. Chest X-Ray 12/07/23 21:59 Impression: Clear lungs. Labs Labs: Laboratory Results - last 24 hr 12/07/23 12/08/23 17:11 06:06 WBC 5.8 6.5 RBC 4.18 L 3.94 L Hgb 12.9 L D 12.2 L Hct 39.8 L 38.4 L MCV 95.2 97.5 MCH 30.9 31.0 MCHC 32.4 31.8 L RDW 13.3 13.2 Plt Count 161 139 L MPV 9.7 10.4 Immature Gran % (Auto) 0.5 Neut % (Auto) 85.1 H Lymph % (Auto) 4.0 L [place] % (Auto) 9.9 H Eos % (Auto) 0.2 Baso % (Auto) 0.3 Lymph # (Auto) 0.23 L [place] # (Auto) 0.6 Eos #
--- NOTE | 2023-12-08 12:22 | PM.CNOR ---
Assessment and Plan Assessment and plan (1) Intertrochanteric fracture of left femur: Code(s): S72.142A - Displaced intertrochanteric fracture of left femur, initial encounter for closed fracture Status: Acute Assessment and Plan: S/P LEFT INTERTROCHANTERIC HIP FRACTURE AFTER A FALL. HE WILL REQUIRE INSERTION OF SHABNAM LEFT HIP. HE DENIES ANY OTHER INJURY. HISTORY, EXAM AND RADIOGRAPHS REVIEWED WITH THE PATIENT. REFERRING PHYSICIAN RECORDS AND IMAGES REVIEWED. CONDITION, NATURE, ETIOLOGY AND COURSE OF NATURAL HISTORY REVIEWED. CONSERVATIVE AND OPERATIVE TREATMENT OPTIONS REVIEWED WELL THE RISKS AND BENEFITS OF EACH. DISCUSSED NONOPERATIVE AND OPERATIVE TREATMENT OPTIONS WITH THE PATIENT. THE PATIENT'S QUESTIONS WERE ANSWERED. THE PATIENT DESIRES OPERATIVE TREATMENT. DISCUSSED ___INSERTION OF SH[place] LEFT FEMUR . RISKS OF SURGERY INCLUDING BUT NOT LIMITED TO NEUROVASCULAR DAMAGE, WOUND COMPLICATIONS, BLOOD CLOT, PULMONARY EMBOLUS, STROKE, HI, ANESTHETIC RISKS UP TO AND INCLUDING WERE REVIEWED. CONTINUED PAIN AND POSSIBLE DYSFUNCTION WERE EXPLAINED. NO GUARANTEES WERE OFFERED. THE PATIENT UNDERSTANDS AND WISHES TO PROCEED. History of Present Illness HPI Consult date: 12/08/23 Chief complaint: Left hip fracture Narrative: CATRINA IS HERE FOR HIS LEFT HIP INJURY SUSTAINED AFTER FALLING ONTO THE LEFT SIDE OF HIS HIP YESTERDAY AT THE LONG-TERM WHILE HAVING PT. HE HAD PAIN AND SWELLING AND WAS BROUGHT TO [facility]. HE WAS DIAGNOSED WITH A LEFT INTER TROCHANTERIC HIP FRACTURE. HE DENIES ANY OTHER EXTREMITY PAIN OF BACK OR NECK PAIN. FOR[facility]LY [facility] Past Medical History Medical History Anemia Cerebrovascular accident (06/2023) Right parietal ischemic stroke with possible hemorrhagic conversion. Duodenal ulcer hemorrhage (06/2023) Gastroesophageal reflux disease Surgical History Surgical History History of cataract extraction with lens replacement Family History Family History Other Family history unknown Social History Social History Social History: Surrogate medical decision maker: Ross Sesay, spouse. Code status: Full code. 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 Spiritual care concerns: No Meds Home Medications and Allergies Home Medications Medication Instructions Recorded Confirmed Type acetaminophen 325 mg tablet 325 mg PO PRN PRN Pain (Scale 07/19/23 12/07/23 History (Tylenol) Score 4-6) atorvastatin 40 mg tablet 40 mg PO HS 07/23/23 12/07/23 History cetirizine 10 mg tablet (Zyrtec) 10 mg PO DAILY 07/23/23 12/07/23 History guaifenesin 200 mg/5 mL oral syrup 100 mg PO DAILY 07/23/23 12/07/23 History melatonin 3 mg tablet 3 mg PO HS 07/23/23 12/07/23 History sennosides 8.6 mg-docusate sodium 1 tablet PO PRN PRN Constipation 07/23/23 12/07/23 History 50 mg tablet (Senna with Docusate Sodium) docusate sodium 100 mg capsule 100 mg PO DAILY 12/07/23 12/07/23 History (Colace) loperamide 2 mg capsule 2 mg PO QID PRN Diarrhea 12/07/23 12/07/23 History ondansetron HCl 8 mg tablet 8 mg PO Q8H PRN Nausea And Vomiting 12/07/23 12/07/23 History Allergies Allergy/AdvReac Type Severity Reaction Status Date / Time No
[2023-12-08 13:34] VITALS: O2SAT 98
[2023-12-08] MEDS: LORATADINE 10 MG TABLET PO (13:38)
[2023-12-08 14:00] VITALS: BP 126/69; PULSE 72; RESP 6; TEMP 37.4; O2SAT 98
[2023-12-08 18:16] LABS: Troponin I < 0.012 ng/mL (0.000-0.034)
[2023-12-08] MEDS: MELATONIN 3 MG TABLET PO (20:14)
[2023-12-08] MEDS: ATORVASTATIN 40 MG TABLET PO (20:14)
[2023-12-08 21:07] VITALS: BP 136/79; PULSE 91; RESP 18; TEMP 36.9; O2SAT 96
[2023-12-09] VITALS (13 sets, daily range): BP systolic 99–129; BP diastolic 49–85; PULSE 57–73; RESP 10–18; TEMP 36.2–37.1; O2SAT 94–100
--- NOTE | 2023-12-09 09:36 | PM.IMPN ---
Progress Note: A&P Assessment and Plan (1) Intertrochanteric fracture of left femur: Code(s): S72.142A - Displaced intertrochanteric fracture of left femur, initial encounter for closed fracture Status: Acute Assessment and Plan: Orthopedic surgery consult, OR 12/09 insert gamma lilian left hip (2) Anemia: Code(s): D64.9 - Anemia, unspecified Status: Acute Assessment and Plan: Appears to be at or above baseline, monitor Check stool occult, monitor hgb closely post op (3) History of duodenal ulcer: Code(s): Z87.19 - Personal history of other diseases of the digestive system Status: Acute Assessment and Plan: History of bleeding duodenal ulcer June 2023, continue PPI (4) Dysphagia: Code(s): R13.10 - Dysphagia, unspecified Status: Acute Assessment and Plan: Bedside swallow ordered, likely 2/2 anesthesia/somnolence, improving Plan DVT prophylaxis with SCDs GI prophylaxis not indicated Code status DNR Subjective Date/time seen: 12/09/23 09:36 Interval history: 78-year-old male with history of 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 No overnight events noted. No chest pain or shortness of breath. No nausea, vomiting or diarrhea. No fevers or chills. Review of Systems Review of Systems: ROS unobtainable: Yes unobtainable due to mental status Exam Narrative: General: No acute distress, alert and oriented per baseline HEENT: Atraumatic, normocephalic, mucous membranes moist CV: Regular rate and rhythm, S1, S2 Lungs: Clear to auscultation bilaterally, no rales or crackles noted, no wheezes, good air entry Abdomen: Soft, nontender, nondistended Extremities: Normal to inspection Skin: No rashes noted, no lesions or wounds seen Psych: Euthymic, normal affect Objective Data Vital Signs Vital Signs: Vital Signs - 24 hr 12/08/23 13:34 12/08/23 14:00 12/08/23 21:07 Temperature 99.4 F 98.5 F Pulse Rate 72 91 Respiratory Rate 6 L 18 Blood Pressure 126/69 136/79 Pulse Oximetry 98 98 96 Oxygen Delivery Room Air Fraction of Inspired Oxygen 21 12/09/23 05:56 12/09/23 08:10 Temperature 98.8 F Pulse Rate 71 Respiratory Rate 18 Blood Pressure 123/85 Pulse Oximetry 98 Oxygen Delivery Room Air Fraction of Inspired Oxygen Intake/Output Intake/Output: Intake & Output 12/06/23 12/07/23 12/08/23 12/09/23 23:59 23:59 23:59 23:59 Intake Total 575 50 Output Total 100 Balance 575 -50 Meds/Results Medications: Active Medications Generic Name Dose Route Start Last Admin Trade Name Freq PRN Reason Stop Dose Admin Acetaminophen 650 mg 12/07/23 21:29 Acetaminophen 325 Mg Tablet PO Q6H PRN Mild Pain (1-3) or Fever Atorvastatin Calcium 40 mg 12/08/23 21:00 12/08/23 20:14 Atorvastatin 40 Mg Tablet PO 40 mg HS ASHLEY Administration Loratadine 10 mg 12/08/23 12:00 12/08/23 13:38 Loratadine 10 Mg Tablet PO 10 mg QAM ASHLEY Administration Melatonin 3 mg 12/08/23 21:00 12/08/23 20:14 Melatonin 3 Mg Tablet PO 3 mg HS ASHLEY Administration Morphine Sulfate 2 mg 12/07/23 21:29 Morphine Sulfate (*Crx) 2 Mg/Ml Inj IV PUSH Q4H PRN Pain Rated 7-10 Ondansetron HCl 4 mg 12/08/23 11:47 Ondansetron Hcl Odt 4 Mg Tablet PO Q8H PRN Nausea And Vomiting Radiology Results: ITS Impressions Hip/Pelvis X-Ray 12/07/23 17:10 Impression: Acute intertrochanteric fracture of the proximal left femur, as detailed above. Head CT 12/07/23 21:55 Impression: No intracranial hemorrhage, mass, or acute infarct. Chronic infarct in the right middle cerebral artery dis
[2023-12-09] MEDS: TRANEXAMIC ACID 1,000MG/ISO100 1,000 MG/100 ML BAG 200 MG IVPB (13:15)
--- NOTE | 2023-12-09 14:01 | WPDANESEPPF ---
Anes - Initial Pre Proc Eval Procedure: Operation Date: 12/09/23 14:00 Proposed Procedures p Left Hip Intertrochanteric Nail - Prabhu Couch MD Date/Time: 12/09/23 14:01 Surgeon: Danish Mitchell MD Pre Op Diagnosis: Left hip fracture Patient Data Age: 78 Gender: M Height: 1.7 m Weight: 82.6 kg Last Vital Signs Temp 97.9 F 12/09/23 13:09 Pulse 73 12/09/23 13:09 Resp 16 12/09/23 13:09 BP 129/66 12/09/23 13:09 Pulse Ox 98 12/09/23 13:09 O2 Del Method Room Air 12/09/23 13:09 FiO2 21 12/08/23 13:34 Allergies Allergy/AdvReac Type Severity Reaction Status Date / Time No Known Allergies Allergy Verified 12/09/23 14:00 Home Medications Medication Instructions Recorded Confirmed Type acetaminophen 325 mg tablet 650 mg PO Q6H PRN Pain (Scale 07/19/23 12/08/23 History (Tylenol) Score 4-6) atorvastatin 40 mg tablet 40 mg PO HS 07/23/23 12/07/23 History cetirizine 10 mg tablet (Zyrtec) 10 mg PO DAILY 07/23/23 12/07/23 History guaifenesin 200 mg/5 mL oral syrup 100 mg PO DAILY 07/23/23 12/07/23 History melatonin 3 mg tablet 3 mg PO HS 07/23/23 12/07/23 History sennosides 8.6 mg-docusate sodium 1 tablet PO PRN PRN Constipation 07/23/23 12/07/23 History 50 mg tablet (Senna with Docusate Sodium) docusate sodium 100 mg capsule 100 mg PO DAILY 12/07/23 12/07/23 History (Colace) loperamide 2 mg capsule 2 mg PO QID PRN Diarrhea 12/07/23 12/07/23 History ondansetron HCl 8 mg tablet 8 mg PO Q8H PRN Nausea And Vomiting 12/07/23 12/07/23 History Laboratory Tests 12/08/23 12/09/23 17:43 06:00 Troponin I < 0.012 ng/mL (0.000-0.034) Blood Type A Positive Antibody Screen Negative Patient hx anesthesia problems: none Family hx anesthesia problems: none Results Review: All pre-operative results and documents have been reviewed as part of the pre-operative evaluation. [facility] Past Medical History Medical History Anemia Cerebrovascular accident (06/2023) Right parietal ischemic stroke with possible hemorrhagic conversion. Duodenal ulcer hemorrhage (06/2023) Gastroesophageal reflux disease Surgical History Surgical History History of cataract extraction with lens replacement Family History Family History Other Family history unknown Social History Social History Social History: Surrogate medical decision maker: Ross Sesay, spouse. Code status: Full code. 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 Spiritual care concerns: No Anes - Eval Final PreProcedure Day of Procedure 12/09/23 14:01 Patient weight: normal Heart: regular rate and rhythm Lungs: clear to auscultation Airway: Mallampati scale class II Neurological: alert and oriented Last oral intake: >/= 8 hours ASA classification: III Emergent: no Anesthetic plan: proceed Anesthesia type and monitoring: general LMA and standard monitoring Results Review: All pre-operative results and documents have been reviewed as part of the pre-operative evaluation. Informed Consent: The patient's anesthetic plan and its attendant risks and benefits were discussed with the patient/family/POA. Questions were solicited and ans
--- NOTE | 2023-12-09 15:46 | P.OP_ITS ---
Procedure Note - Detailed Date of Procedure 12/09/23 Pre-op Diagnosis LEFT INTERTROCHANTERIC FEMUR FRACTURE Post-op Diagnosis Same Procedure Performed INSERTION GAMMA SHABNAM LEFT HIP Surgeon Prabhu Couch MD Anesthesia General Description of Procedure THE PATIENT WAS TAKEN TO THE OPERATING ROOM AND PLACED ON A FRACTURE TABLE AFTER GIVEN GENERAL ANESTHESIA. THE LEFT LOWER EXTREMITY WAS PLACED IN A TRACTION BOOT AND USING SOME TRACTION AND INTERNAL ROTATION THE INNER TROCHANTERIC FRACTURE WAS REDUCED TO ANATOMIC POSITION. NEXT THE LEFT LOWER EXTREMITY WAS PREPPED AND DRAPED IN THE STERILE FASHION. AN INCISION WAS MADE PROXIMAL TO THE TIP OF THE GREATER TROCHANTER AND DISSECTION CONTINUED TILL THE TIP OF THE GREATER TROCHANTER WAS PALPATED. A GUIDE PIN WAS PLACED DOWN THE FEMORAL CANAL AND PAST THE FRACTURE SITE. THIS WAS CHECKED ON FLUOROSCOPY AND FOUND TO BE IN GOOD POSITION. AN INITIAL REAMER WAS USED TO REAM THE FEMORAL CANAL. A 11 BY 200 MM ARTHREX SHABNAM WAS INSERTED TILL THE CORRECT POSITION WAS IDENTIFIED ON XRAY. A GUIDE PIN WAS INSERTED THROUGH THE FEMORAL NECK AT 125 DE[address] ANGLE TILL I T REACHED THE TIP OF THE SUB CHONDRAL BONE SEEN ON XRAY. AFTER REAMING, LAG SCREW WAS INSERTED MEASURING 110 MM. XRAYS SHOWED IT TO BE IN GOOD POSITION. THE LAG SCREW WAS LOCKED PROXIMALLY WITH A LOCKING SCREW. NEXT A DISTAL LOCKING SCREW WAS PLACED ACROSS THE SHABNAM AND WAS IN GOOD POSITION ON XRAY. THE TRACTION WAS RELEASED. THE WOUNDS WERE WASHED. THE DEEP FASCIA WAS REPAIRED WITH 0 VICRYL SUTURE, THE SUB CUTANEOUS LAYER WITH 2-0 VICRYL, AND THE SKIN WITH CARO. THE WOUNDS WERE WASHED AND THEN STERILE DRESSING WAS APPLIED. PATIENT WAS EXTUBATED AND SENT TO RECOVERY ROOM. Estimated Blood Loss 100 Urine Output 300 Complications No immediate complications Condition Stable Disposition PACU
[2023-12-09] MEDS: LACTATED RINGERS 1,000 ML 30 ML IV CONT ×2 (15:52→17:12)
[2023-12-09] MEDS: SODIUM CHLORIDE 0.9% IV 1,000 ML 125 ML IV CONT (18:02)
[2023-12-09] MEDS: FAMOTIDINE 20 MG TABLET PO (20:29)
[2023-12-09] MEDS: ATORVASTATIN 40 MG TABLET PO (20:29)
[2023-12-09] MEDS: ceFAZolin 2 GM/D5W 50 ML 2 GM/50 ML BAG IVPB (20:29)
[2023-12-09] MEDS: MELATONIN 3 MG TABLET PO (20:29)
[2023-12-10 01:36] VITALS: BP 112/57; PULSE 61; RESP 18; TEMP 36.4; O2SAT 96
[2023-12-10] MEDS: ceFAZolin 2 GM/D5W 50 ML 2 GM/50 ML BAG IVPB ×2 (04:51→12:06)
[2023-12-10 05:36] VITALS: BP 116/52; PULSE 78; RESP 20; TEMP 36.6; O2SAT 98
[2023-12-10 07:20] LABS: Basophils Percent Auto 0.1 % (0.2-1.2); Hematocrit 31.4 % (42.0-52.0); Hemoglobin 9.8 g/dL (14.0-18.0); Immature Granulocyte Absolute 0.06 K/mm3 (0.00-0.031); Immature Granulocyte Percent A 0.6 % (0-0.5); Lymphocytes Absolute Auto 0.47 K/mm3 (0.9-3.2); Lymphocytes Percent Auto 4.5 % (18.3-44.2); Mean Corpuscular HGB Conc 31.2 g/dl (32-36); Mean Corpuscular Hemoglobin 30.6 pg (26-34); Mean Corpuscular Volume 98.1 fl (80-100); Mean Platelet Volume 10.7 fl (7.4-10.4); Monocytes Absolute Auto 0.5 K/mm3 (0.1-0.6); Monocytes Percent Auto 4.5 % (2.6-8.5); Neutrophils Absolute Auto 9.5 K/mm3 (1.3-6.7); Neutrophils Percent Auto 90.3 % (45.5-73.1); Platelet Count Result 144 k/mm3 (150-375); Red Cell Distribution Width 13.9 % (11.5-14.5); White Blood Count 10.5 K/mm3 (4.5-10.0)
[2023-12-10 07:29] LABS: Anion Gap 5 mmol/L (8-16); Blood Urea Nitrogen 33 mg/dL (9-20); Calcium 8.1 mg/dL (8.4-10.2); Carbon Dioxide 28 mmol/L (22-30); Chloride 103 mmol/L (98-107); Estimated CRCL calculation 83 ml/min; Estimated Glomerular Filt Rate > 60; Glucose 104 mg/dL (65-110); Potassium 3.6 mmol/L (3.4-5.0); Sodium 136 mmol/L (137-145)
[2023-12-10 07:50] LABS: Acanthocytes 1+ (NORMAL); Crenated RBC 1+ (NORMAL)
[2023-12-10 07:51] LABS: Schistocytes None Seen (NORMAL)
[2023-12-10] MEDS: SODIUM CHLORIDE 0.9% IV 1,000 ML 125 ML IV CONT ×2 (07:54→20:25)
--- NOTE | 2023-12-10 08:11 | P.PNAN_ITS ---
Anes - Prog Note Post-Op Date/Time: 12/10/23 08:11 Cardiovascular status: normal Respiratory status: normal Airway patency: baseline Mental status: baseline Post-Op hydration status: normal Vital Signs: Last Vital Signs Temp 36.6 C 12/10/23 05:36 Pulse 78 12/10/23 05:36 Resp 20 12/10/23 05:36 BP 116/52 L 12/10/23 05:36 Pulse Ox 98 12/10/23 05:36 O2 Del Method Room Air 12/09/23 17:20 O2 Flow Rate 4 12/09/23 16:35 FiO2 21 12/08/23 13:34 Pain Score (VAS): 02/01 I/O: Intake & Output 12/09/23 12/10/23 12/10/23 23:59 07:59 15:59 Intake Total 250 1150 Output Total 475 Balance 250 675 Laboratory Tests 12/10/23 06:31 12/10/23 06:31 12/10/23 06:31 WBC 10.5 H RBC 3.20 L Hgb 9.8 L Hct 31.4 L MCV 98.1 MCH 30.6 MCHC 31.2 L RDW 13.9 Plt Count 144 L MPV 10.7 H Immature Gran % (Auto) 0.6 H Neut % (Auto) 90.3 H Lymph % (Auto) 4.5 L [place] % (Auto) 4.5 Eos % (Auto) 0.0 Baso % (Auto) 0.1 L Lymph # (Auto) 0.47 L [place] # (Auto) 0.5 Eos # (Auto) 0.0 Baso # (Auto) 0.0 Abs Immat Gran (auto) 0.06 H Absolute Neuts (auto) 9.5 H Absolute Nucleated RBC 0.0 Nucleated RBC % 0.0 Platelet Estimate Slightly decreased Crenated Cell 1+ Acanthocytes (Spur) 1+ Schistocytes None seen Sodium 136 L Potassium 3.6 Chloride 103 Carbon Dioxide 28 Anion Gap 5 L BUN 33 H Creatinine 0.60 L Estim Creat Clear Calc 83 Estimated GFR > 60 Glucose 104 Calcium 8.1 L Post-procedural complaints: none Patient Feedback: Patient satisfied with anesthetic care.
[2023-12-10] MEDS: FAMOTIDINE 20 MG TABLET PO ×2 (08:43→20:36)
[2023-12-10] MEDS: LORATADINE 10 MG TABLET PO (08:43)
[2023-12-10] MEDS: ENOXAPARIN 30 MG/0.3 ML SYRINGE SUB-Q (08:44)
[2023-12-10] MEDS: polyethylene glycoL 3350 17 GM POWD.PACK PO (08:44)
[2023-12-10] MEDS: ACETAMINOPHEN 325 MG TABLET 650 MG PO (08:55)
--- NOTE | 2023-12-10 09:07 | PM.PNORT ---
Progress Note: A&P Assessment and Plan (1) Intertrochanteric fracture of left femur: Code(s): S72.142A - Displaced intertrochanteric fracture of left femur, initial encounter for closed fracture Status: Acute Assessment and Plan: POD #1 : INSERTION GAMMA SHABNAM LEFT HIP Continue PT/OT. WBAT. Walker. HIGH FALL RISK. Continue pain control. Ice Hip. Protect skin. DVT prophylaxis with Lovenox. SCDs. Incentive Spirometry Use reviewed. Monitor Dressing. Change daily. Bowel Regimen. Dispo: SNF pending progress with PT/OT and medical stability. (2) Closed fracture of left hip: Code(s): S72.002A - Fracture of unspecified part of neck of left femur, initial encounter for closed fracture Status: Acute (3) CVA (cerebral vascular accident): Code(s): I63.9 - Cerebral infarction, unspecified Status: Acute (4) Dysphagia: Code(s): R13.10 - Dysphagia, unspecified Status: Acute Assessment and Plan: Worse since recent surgical intervention. Bedside swallow study ordered. Plan Reviewed history, exam, radiographs and current labs with attending MD and covering surgeon, Dr. Couch, who agrees with current plan as indicated above. No further recommendations from Dr. Couch at this time. Subjective Subjective Date/Time Seen: 12/10/23 09:07 Post Op day: 1 Interval history: POD #1: INSERTION GAMMA SHABNAM LEFT HIP Patient awake, alert. Sitting up in bed. Complains of inability to drink water which he has difficulty with at baseline but has worsened since recent surgical intervention. Working with OT. Planning to get out of bed to chair. Review of Systems Review of Systems: All systems reviewed & are unremarkable except as noted in HPI and below Constitutional: Constitutional: Denies chills, Denies fatigue, Denies fever(s), Denies night sweats and Denies weakness Cardiovascular: Cardiovascular: Denies chest pain, Denies lightheadedness, Denies palpitations and Denies dyspnea Respiratory: Respiratory: Denies cough, Denies dyspnea and Denies wheezing Gastrointestinal: Gastrointestinal: Denies abdominal pain, Denies diarrhea, Denies nausea and Denies vomiting Musculoskeletal: Musculoskeletal: Reports arthralgias (left hip ), Reports joint swelling (left hip ) and Denies numbness Neurologic: Denies numbness and Denies weakness Endocrine: Endocrine: Denies fatigue and Denies palpitations Allergic/Immunologic: Allergic/Immunologic: Denies wheezing Exam Const: General: comfortable and no acute distress Orientation/consciousness: patient oriented x3 Limitations: no limitations Resp: Effort & Inspection: normal respiratory effort Cardio: Rate: regular rate Rhythm: regular rhythm GI: Inspection: non-distended Skin: General skin exam: normal color and wounds noted (incision left hip C/D/I ) Wounds: wounds noted (incision left hip C/D/I ) Neuro: General: patient oriented x3 Extrem: Left lower extremity: hip/thigh Details: tenderness Location: of the hip Location: laterally and anteriorly, swelling (thigh soft ) Location: of the hip (lateral. ), abnormal ROM (limitations with internal/external rotation and flexion/extension due to recent surgical intervention ) and other (incision lateral hip c/d/i. ), knee Details: normal to inspection and normal ROM; no tenderness and no swelling, lower leg (Negative Saqib's Sign ) Details: no edema, ankle (+ankle dorsiflexion/plantarflexion ) Details: normal to inspection, no edema and normal ROM; no tenderness, no swelling and no warmth and foot Details: normal capillary refill, toes with normal ROM, vascular exam Details: dorsalis pedis pulse present and motor-sensory exam light-touch normal in all toes; no tenderness, no ecchymosis and no crepitus Psych: Mental Status: mental status grossly normal Affect: normal affect Objective Data Vital Signs Vital Signs: Vital Signs - 24 hr 12/09/23 13:09 12/09/23 15:52 12/09/23 16:05 Te
[2023-12-10 09:36] VITALS: BP 122/50; PULSE 74; RESP 22; TEMP 37.2; O2SAT 95
[2023-12-10] MEDS: HYDROcodone/acetaminophen (*CRX) 5-325 MG TABLET 1 TAB PO ×2 (10:13→20:40)
[2023-12-10 12:00] VITALS: BP 100/51; PULSE 92; RESP 20; TEMP 37.1; O2SAT 100
[2023-12-10] MEDS: SENNA/DOCUSATE SODIUM TABLET 2 TAB PO (17:22)
[2023-12-10 20:00] VITALS: BP 114/55; PULSE 68; RESP 15; TEMP 37.4; O2SAT 96
[2023-12-10] MEDS: MELATONIN 3 MG TABLET PO (20:36)
[2023-12-10] MEDS: ATORVASTATIN 40 MG TABLET PO (20:36)
[2023-12-11] MEDS: SODIUM CHLORIDE 0.9% IV 1,000 ML 125 ML IV CONT (05:05)
[2023-12-11] MEDS: LORATADINE 10 MG TABLET PO (08:14)
[2023-12-11] MEDS: FAMOTIDINE 20 MG TABLET PO ×2 (08:14→20:40)
[2023-12-11] MEDS: polyethylene glycoL 3350 17 GM POWD.PACK PO (08:15)
[2023-12-11] MEDS: HYDROcodone/acetaminophen (*CRX) 5-325 MG TABLET 1 TAB PO ×4 (08:15→20:40)
[2023-12-11] MEDS: ENOXAPARIN 30 MG/0.3 ML SYRINGE SUB-Q (08:15)
[2023-12-11] MEDS: SENNA/DOCUSATE SODIUM TABLET 2 TAB PO ×2 (08:15→17:05)
--- NOTE | 2023-12-11 10:21 | PM.IMPN ---
Progress Note: A&P Assessment and Plan (1) Intertrochanteric fracture of left femur: Code(s): S72.142A - Displaced intertrochanteric fracture of left femur, initial encounter for closed fracture Status: Acute Assessment and Plan: Patient presents with left hip pain after a fall and found to have an acute IT fracture of the proximal left femur. Ortho consulted and patient brought to the OR on 12/09 for insertion of a left femur gamma lilian POD #2 Appears to have tolerated the procedure well. Continue PT/OT. Pain control per ortho. (2) Anemia: Code(s): D64.9 - Anemia, unspecified Status: Acute Assessment and Plan: Was anemic last admission but Hgb 12 on admission Hgb did drop to 9.8 today. [place] related to fracture and surgery. Not uncommon. Follow. Add iron (3) History of duodenal ulcer: Code(s): Z87.19 - Personal history of other diseases of the digestive system Status: Acute Assessment and Plan: History of bleeding duodenal ulcer June 2023. Continue pepcid (4) Dysphagia: Code(s): R13.10 - Dysphagia, unspecified Status: Acute Assessment and Plan: Patient with dysphagia. Bedside swallow ordered 12/10 likely 2/2 anesthesia/somnolence ST eval showing patietn could swallow safely with regular diet and mildly thick liquids. 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 Assuming care. Chart reviewed. Patient is more awake and alert today. He is up to the chair. He required the stair steady to get to the chair. He feels tired. Left hip pain with movement. No chest pain or shortness of breath. Exam Narrative: AF 99.4 114/55 68 15 96% ra Gen - NARD Chest - CTA bilaterally, nml RR CV - RRR S1/S2 Abd - Soft, NT/ND, Positive BS Ext - No pedal edema. left hip dressing clean/dry/intact Neuro - Alert and oriented x3 (not year). Psych - Nml mood and affect Skin - Warm and dry Objective Data Vital Signs Vital Signs: Vital Signs - 24 hr 12/10/23 12:00 12/10/23 20:00 Temperature 98.8 F 99.4 F Pulse Rate 92 68 Respiratory Rate 20 15 Blood Pressure 100/51 L 114/55 L Pulse Oximetry 100 96 Intake/Output Intake/Output: Intake & Output 12/08/23 12/09/23 12/10/23 12/11/23 23:59 23:59 23:59 23:59 Intake Total 302 672 5193 1500 Output Total 400 475 750 Balance 575 -100 2215 750 Meds/Results Medications: Active Medications Generic Name Dose Route Start Last Admin Trade Name Freq PRN Reason Stop Dose Admin Acetaminophen 650 mg 12/09/23 15:49 12/10/23 08:55 Acetaminophen 325 Mg Tablet PO 650 mg Q6H PRN Administration Mild Pain (1-3) or Fever Hydrocodone Bitart/Acetaminophen 1 tab 12/09/23 15:49 12/11/23 08:15 Hydrocodone/Acetaminophen (*Crx) 5-325 Mg Tablet PO 1 tab Q3H PRN Administration Pain Rated 4-6 Hydrocodone Bitart/Acetaminophen 2 tab 12/09/23 15:49 Hydrocodone/Acetaminophen (*Crx) 5-325 Mg Tablet PO Q6H PRN Pain Rated 7-10 Atorvastatin Calcium 40 mg 12/08/23 21:00 12/10/23 20:36 Atorvastatin 40 Mg Tablet PO 40 mg HS ASHLEY Administration Diazepam 5 mg 12/09/23 15:49 Diazepam (*Crx) 5 Mg Tablet PO Q8H PRN Muscle Spasm Enoxaparin Sodium 30 mg 12/10/23 09:00 12/11/23 08:15 Enoxaparin 30 Mg/0.3 Ml Syringe SUB-Q 30 mg DAILY ASHLEY Administration Famotidine 20 mg 12/09/23 21:00 12/11/23 08:14 Famotidine 20 Mg Tablet PO 20 mg Q12HR ASHLEY Administration Hydroxyzine Pamoate 50 mg 12/09/23 15:49 Hydroxyzine Pamoate 25 Mg Capsule PO
[2023-12-11] MEDS: FERROUS SULFATE 325 MG TABLET DR PO (12:21)
[2023-12-11 14:00] VITALS: BP 105/51; PULSE 72; RESP 18; TEMP 36.4; O2SAT 98
--- NOTE | 2023-12-11 15:11 | PM.PNORT ---
Progress Note: A&P Assessment and Plan (1) Intertrochanteric fracture of left femur: Code(s): S72.142A - Displaced intertrochanteric fracture of left femur, initial encounter for closed fracture Status: Acute Assessment and Plan: POD 2 IMPROVING. HE WILL CONT PT HE WILL NEED REHAB XS SNF TO DISCHARGE Subjective Subjective Date/Time Seen: 12/11/23 15:11 Interval history: POED 2 DOING WELL. IMPROVING. HE IS ABLE TO GET OUT OF BED BUT HAVING DIFFICULTY WITH AMBULATION POSSIBLY DUE TO HIS PREVIOUS STROKE. OTHER PAIGE IS DOING WELL. 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 [place] INTACT CALF SOFT NON TENDER Objective Data Vital Signs Vital Signs: Vital Signs - 24 hr 12/10/23 20:00 12/11/23 08:15 12/11/23 14:00 Temperature 37.4 C 36.4 C L Pulse Rate 68 72 Respiratory Rate 15 18 Blood Pressure 114/55 L 105/51 L Pulse Oximetry 96 98 Oxygen Delivery Room Air Intake/Output Intake/Output: Intake & Output 12/08/23 12/09/23 12/10/23 12/11/23 23:59 23:59 23:59 23:59 Intake Total 864 719 7489 2700 Output Total 400 475 750 Balance 575 -100 2215 1950 Meds/Results Medications: Active Medications Generic Name Dose Route Start Last Admin Trade Name Freq PRN Reason Stop Dose Admin Acetaminophen 650 mg 12/09/23 15:49 12/10/23 08:55 Acetaminophen 325 Mg Tablet PO 650 mg Q6H PRN Administration Mild Pain (1-3) or Fever Hydrocodone Bitart/Acetaminophen 1 tab 12/09/23 15:49 12/11/23 12:21 Hydrocodone/Acetaminophen (*Crx) 5-325 Mg Tablet PO 1 tab Q3H PRN Administration Pain Rated 4-6 Hydrocodone Bitart/Acetaminophen 2 tab 12/09/23 15:49 Hydrocodone/Acetaminophen (*Crx) 5-325 Mg Tablet PO Q6H PRN Pain Rated 7-10 Atorvastatin Calcium 40 mg 12/08/23 21:00 12/10/23 20:36 Atorvastatin 40 Mg Tablet PO 40 mg HS ASHLEY Administration Diazepam 5 mg 12/09/23 15:49 Diazepam (*Crx) 5 Mg Tablet PO Q8H PRN Muscle Spasm Enoxaparin Sodium 30 mg 12/10/23 09:00 12/11/23 08:15 Enoxaparin 30 Mg/0.3 Ml Syringe SUB-Q 30 mg DAILY ASHLEY Administration Famotidine 20 mg 12/09/23 21:00 12/11/23 08:14 Famotidine 20 Mg Tablet PO 20 mg Q12HR ASHLEY Administration Ferrous Sulfate 325 mg 12/11/23 10:35 12/11/23 12:21 Ferrous Sulfate [address] PO 325 mg DAILY ASHLEY Administration Hydroxyzine Pamoate 50 mg 12/09/23 15:49 Hydroxyzine Pamoate 25 Mg Capsule PO Q4H PRN Itching Loratadine 10 mg 12/08/23 12:00 12/11/23 08:14 Loratadine 10 Mg Tablet PO 10 mg QAM ASHLEY Administration Melatonin 3 mg 12/08/23 21:00 12/10/23 20:36 Melatonin 3 Mg Tablet PO 3 mg HS ASHLEY Administration Miscellaneous Information 1 each 12/10/23 00:01 Order Clarification XX 01/09/24 00:00 [facility] Naloxone HCl 0.1 mg 12/09/23 15:49 Naloxone Hcl 0.4 Mg/Ml Vial IV PUSH Q2M PRN Opiate Reversal Ondansetron HCl 4 mg 12/08/23 11:47 Ondansetron Hcl Odt 4 Mg Tablet PO Q8H PRN Nausea And Vomiting Ondansetron HCl 4 mg 12/09/23 15:49 Ondansetron Inj 4 Mg/2 Ml Vial IV PUSH Q4H PRN Nausea And Vomiting Polyethylene Glycol 17 gm 12/10/23 09:00 12/11/23 08:15 Polyethylene Glycol 3350 17 Gm Powd.Pack PO 17 gm QAM [facility] Administration Senna/Docusate Sodium 2 tab 12/09/23 17:00 12/11/23 08:15 Senna/Docusate Sodium Tablet PO 2 tab BID ASHLEY Administration Radiology Results: ITS Impressions Hip/Pelvis X-Ray 12/07/23 17:10 Impression: Acute intertrochanteric fracture of the proximal left femur, as detailed above. Head CT 12/07/23 21:55 Impression: No intracranial hemorrhage, mass, or acute infarct. Chronic infarct in the right middle cerebral artery distribution. Atrophy and chronic white matter changes, as above. Chest X-Ray 12/07/23 21:59 Impression: Clear lungs. Intraoperative
[2023-12-11] MEDS: ATORVASTATIN 40 MG TABLET PO (20:40)
[2023-12-11] MEDS: MELATONIN 3 MG TABLET PO (20:40)
[2023-12-11 21:06] VITALS: BP 123/63; PULSE 63; RESP 18; TEMP 37.4; O2SAT 99
[2023-12-12] MEDS: HYDROcodone/acetaminophen (*CRX) 5-325 MG TABLET 1 TAB PO (05:36)
[2023-12-12 06:00] VITALS: BP 134/68; PULSE 70; RESP 20; TEMP 36.5; O2SAT 95
[2023-12-12 07:01] LABS: Hematocrit 25.4 % (42.0-52.0); Immature Platelet Fraction Pct 2.6 % (0.9-11.2); Mean Corpuscular HGB Conc 31.5 g/dl (32-36); Mean Corpuscular Hemoglobin 30.9 pg (26-34); Mean Corpuscular Volume 98.1 fl (80-100); Mean Platelet Volume 9.6 fl (7.4-10.4); Platelet Count Result 151 k/mm3 (150-375); Red Blood Count 2.59 M/mm3 (4.6-6.20); White Blood Count 2.9 K/mm3 (4.5-10.0)
[2023-12-12 07:20] LABS: Anion Gap 3 mmol/L (8-16); Blood Urea Nitrogen 20 mg/dL (9-20); Calcium 7.4 mg/dL (8.4-10.2); Carbon Dioxide 28 mmol/L (22-30); Chloride 105 mmol/L (98-107); Estimated CRCL calculation 121 ml/min; Estimated Glomerular Filt Rate > 60; Glucose 98 mg/dL (65-110); Potassium 3.5 mmol/L (3.4-5.0); Sodium 136 mmol/L (137-145)
[2023-12-12] MEDS: ENOXAPARIN 30 MG/0.3 ML SYRINGE SUB-Q (09:38)
[2023-12-12] MEDS: PANTOPRAZOLE SODIUM IV 40 MG VIAL IV PUSH ×2 (09:38→20:02)
[2023-12-12] MEDS: FERROUS SULFATE 325 MG TABLET DR PO (09:39)
[2023-12-12] MEDS: polyethylene glycoL 3350 17 GM POWD.PACK PO (09:39)
[2023-12-12] MEDS: SENNA/DOCUSATE SODIUM TABLET 2 TAB PO ×2 (09:39→17:21)
[2023-12-12] MEDS: LORATADINE 10 MG TABLET PO (09:39)
[2023-12-12] MEDS: ACETAMINOPHEN 325 MG TABLET 650 MG PO ×2 (09:42→17:22)
--- NOTE | 2023-12-12 10:19 | PM.PNORT ---
Progress Note: A&P Assessment and Plan (1) Intertrochanteric fracture of left femur: Code(s): S72.142A - Displaced intertrochanteric fracture of left femur, initial encounter for closed fracture Status: Acute Assessment and Plan: POD #3: INSERTION GAMMA SHABNAM LEFT HIP Continue PT/OT. WBAT. Walker. HIGH FALL RISK. Continue pain control. Ice Hip. Protect skin. DVT prophylaxis with Lovenox. SCDs. Incentive Spirometry Use reviewed. Monitor Dressing. Change daily. Bowel Regimen. Dispo: SNF pending progress with PT/OT and medical stability. Follow up arranged. (2) Closed fracture of left hip: Code(s): S72.002A - Fracture of unspecified part of neck of left femur, initial encounter for closed fracture Status: Acute (3) CVA (cerebral vascular accident): Code(s): I63.9 - Cerebral infarction, unspecified Status: Acute (4) Dysphagia: Code(s): R13.10 - Dysphagia, unspecified Status: Acute Assessment and Plan: Thickened liquids Plan Reviewed history, exam, radiographs and current labs with attending MD and covering surgeon, Dr. Couch, who agrees with current plan as indicated above. No further recommendations from Dr. Couch at this time. Subjective Subjective Date/Time Seen: 12/12/23 10:19 Post Op day: 3 Interval history: POD #3: INSERTION GAMMA SHABNAM LEFT HIP Patient awake, alert. Sitting up in bed. Slow progress with PT/OT. Difficulty with ambulation due to pain and hesitancy. Exam Const: General: comfortable and no acute distress Orientation/consciousness: patient oriented x3 Limitations: no limitations Resp: Effort & Inspection: normal respiratory effort Cardio: Rate: regular rate Rhythm: regular rhythm GI: Inspection: non-distended Skin: General skin exam: normal color and wounds noted (incision left hip C/D/I ) Wounds: wounds noted (incision left hip C/D/I ) Neuro: General: patient oriented x3 Extrem: Left lower extremity: hip/thigh Details: tenderness Location: of the hip Location: laterally and anteriorly, swelling (thigh soft ) Location: of the hip (lateral. ), abnormal ROM (limitations with internal/external rotation and flexion/extension due to recent surgical intervention ) and other (incision lateral hip c/d/i. ), knee Details: normal to inspection and normal ROM; no tenderness and no swelling, lower leg (Negative Saqib's Sign ) Details: no edema, ankle (+ankle dorsiflexion/plantarflexion ) Details: normal to inspection, no edema and normal ROM; no tenderness, no swelling and no warmth and foot Details: normal capillary refill, toes with normal ROM, vascular exam Details: dorsalis pedis pulse present and motor-sensory exam light-touch normal in all toes; no tenderness, no ecchymosis and no crepitus Psych: Mental Status: mental status grossly normal Affect: normal affect Objective Data Vital Signs Vital Signs: Vital Signs - 24 hr 12/11/23 14:00 12/11/23 21:06 12/12/23 06:00 Temperature 36.4 C L 37.4 C 36.5 C Pulse Rate 72 63 70 Respiratory Rate 18 18 20 Blood Pressure 105/51 L 123/63 134/68 Pulse Oximetry 98 99 95 Intake/Output Intake/Output: Intake & Output 12/09/23 12/10/23 12/11/23 12/12/23 23:59 23:59 23:59 23:59 Intake Total 300 2690 3180 240 Output Total 400 475 950 Balance -100 2215 2230 240 Meds/Results Medications: Active Medications Generic Name Dose Route Start Last Admin Trade Name Freq PRN Reason Stop Dose Admin Acetaminophen 650 mg 12/09/23 15:49 12/12/23 09:42 Acetaminophen 325 Mg Tablet PO 650 mg Q6H PRN Administration Mild Pain (1-3) or Fever Hydrocodone Bitart/Acetaminophen 1 tab 12/09/23 15:49 12/12/23 05:36 Hydrocodone/Acetaminophen (*Crx) 5-325 Mg Tablet PO 1 tab Q3H PRN Administration Pain Rated 4-6 Hydrocodone Bitart/Acetaminophen 2 tab 12/09/23 15:49 Hydrocodone/Acetaminophen (*Crx) 5-325 Mg Tablet PO Q6H PRN Pain Rated 7-10 At
[2023-12-12 12:00] LABS: Hematocrit 25.5 % (42.0-52.0); Hemoglobin 8.1 g/dL (14.0-18.0)
[2023-12-12 14:00] VITALS: BP 144/70; PULSE 97; RESP 18; TEMP 36.8; O2SAT 97
--- NOTE | 2023-12-12 14:42 | PM.IMPN ---
Progress Note: A&P Assessment and Plan (1) Intertrochanteric fracture of left femur: Code(s): S72.142A - Displaced intertrochanteric fracture of left femur, initial encounter for closed fracture Status: Acute Assessment and Plan: Patient presents with left hip pain after a fall and found to have an acute IT fracture of the proximal left femur. Ortho consulted and patient brought to the OR on 12/09 for insertion of a left femur gamma lilian POD #3 Appears to have tolerated the procedure well. Continue PT/OT. Pain control per ortho. (2) Anemia: Code(s): D64.9 - Anemia, unspecified Status: Acute Assessment and Plan: Was anemic last admission but Hgb 12 on admission here Hgb did drop to 8 today. No evidence of acute blood loss. [place] related to fracture and surgery. Will check iron studies, B12. Stool guaiac ordered. Serial H&H Continue iron supplement (3) History of duodenal ulcer: Code(s): Z87.19 - Personal history of other diseases of the digestive system Status: Acute Assessment and Plan: History of bleeding duodenal ulcer June 2023. Changed to Protonix IV. (4) Dysphagia: Code(s): R13.10 - Dysphagia, unspecified Status: Acute Assessment and Plan: Patient with dysphagia. Bedside swallow ordered 12/10 likely 2/2 anesthesia/somnolence ST [facility] showing patient could swallow safely with regular diet and mildly thick liquids. 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 Pain better controlled. Slept well last night. No chest pain or shortness of breath. Exam Narrative: AF 97.7 134/68 70 20 95% ra Gen - NARD Chest -few bibasilar crackles otherwise clear. CV - RRR S1/S2 Abd - Soft, NT/ND, Positive BS Ext - Left hip dressing clean/dry/intact Neuro - Alert and oriented x3 (not year). Psych - Nml mood and affect Skin - Warm and dry Objective Data Vital Signs Vital Signs: Vital Signs - 24 hr 12/11/23 21:06 12/12/23 06:00 Temperature 99.3 F 97.7 F Pulse Rate 63 70 Respiratory Rate 18 20 Blood Pressure 123/63 134/68 Pulse Oximetry 99 95 Intake/Output Intake/Output: Intake & Output 12/09/23 12/10/23 12/11/23 12/12/23 23:59 23:59 23:59 23:59 Intake Total 300 2690 3180 480 Output Total 400 475 950 Balance -100 2215 2230 480 Meds/Results Medications: Active Medications Generic Name Dose Route Start Last Admin Trade Name Freq PRN Reason Stop Dose Admin Acetaminophen 650 mg 12/09/23 15:49 12/12/23 09:42 Acetaminophen 325 Mg Tablet PO 650 mg Q6H PRN Administration Mild Pain (1-3) or Fever Hydrocodone Bitart/Acetaminophen 1 tab 12/09/23 15:49 12/12/23 05:36 Hydrocodone/Acetaminophen (*Crx) 5-325 Mg Tablet PO 1 tab Q3H PRN Administration Pain Rated 4-6 Hydrocodone Bitart/Acetaminophen 2 tab 12/09/23 15:49 Hydrocodone/Acetaminophen (*Crx) 5-325 Mg Tablet PO Q6H PRN Pain Rated 7-10 Atorvastatin Calcium 40 mg 12/08/23 21:00 12/11/23 20:40 Atorvastatin 40 Mg Tablet PO 40 mg HS ASHLEY Administration Diazepam 5 mg 12/09/23 15:49 Diazepam (*Crx) 5 Mg Tablet PO Q8H PRN Muscle Spasm Enoxaparin Sodium 30 mg 12/10/23 09:00 12/12/23 09:38 Enoxaparin 30 Mg/0.3 Ml Syringe SUB-Q 30 mg DAILY ASHLEY Administration Ferrous Sulfate 325 mg 12/11/23 10:35 12/12/23 09:39 Ferrous Sulfate [address] PO 325 mg DAILY ASHLEY Administration Hydroxyzine Pamoate 50 mg 12/09/23 15:49 Hydroxyzine Pamoate 25 Mg Capsule PO Q4H PRN [place]
--- NOTE | 2023-12-12 14:57 | PM.IMPN ---
Progress Note: A&P Assessment and Plan (1) Intertrochanteric fracture of left femur: Code(s): S72.142A - Displaced intertrochanteric fracture of left femur, initial encounter for closed fracture Status: Acute Assessment and Plan: Patient presents with left hip pain after a fall and found to have an acute IT fracture of the proximal left femur. Ortho consulted and patient brought to the OR on 12/09 for insertion of a left femur gamma lilian insertion of a left femur gamma lilian, 12/09/23 Appears to have tolerated the procedure well. Continue PT/OT. Pain control per ortho. (2) Anemia: Code(s): D64.9 - Anemia, unspecified Status: Acute Assessment and Plan: Was anemic last admission but Hgb 12 on admission here Hgb did drop to 8 today. No evidence of acute blood loss. [place] related to fracture and surgery. Will check iron studies, B12. Stool guaiac ordered. Serial H&H Continue iron supplement (3) History of duodenal ulcer: Code(s): Z87.19 - Personal history of other diseases of the digestive system Status: Acute Assessment and Plan: History of bleeding duodenal ulcer June 2023. Changed to Protonix IV. (4) Dysphagia: Code(s): R13.10 - Dysphagia, unspecified Status: Acute Assessment and Plan: Patient with dysphagia. Bedside swallow ordered 12/10 likely 2/2 anesthesia/somnolence ST eval showing patient could swallow safely with regular diet and mildly thick liquids. 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 Pain better controlled. Slept well last night. No chest pain or shortness of breath. Review of Systems Review of Systems: 12 point review of systems was assessed and was negative except as noted in the HPI ROS unobtainable: Yes unobtainable due to mental status Exam Narrative: AF 97.7 134/68 70 20 95% ra Gen - NARD Chest -few bibasilar crackles otherwise clear. CV - RRR S1/S2 Abd - Soft, NT/ND, Positive BS Ext - Left hip dressing clean/dry/intact Neuro - Alert and oriented x3 (not year). Psych - Nml mood and affect Skin - Warm and dry Objective Data Vital Signs Vital Signs: Vital Signs - 24 hr 12/11/23 21:06 12/12/23 06:00 Temperature 99.3 F 97.7 F Pulse Rate 63 70 Respiratory Rate 18 20 Blood Pressure 123/63 134/68 Pulse Oximetry 99 95 Intake/Output Intake/Output: Intake & Output 12/09/23 12/10/23 12/11/23 12/12/23 23:59 23:59 23:59 23:59 Intake Total 300 2690 3180 480 Output Total 400 475 950 Balance -100 2215 2230 480 Meds/Results Medications: Active Medications Generic Name Dose Route Start Last Admin Trade Name Freq PRN Reason Stop Dose Admin Acetaminophen 650 mg 12/12/23 14:50 Acetaminophen 325 Mg Tablet PO Q6H PRN Mild Pain (1-6) Or Fever Hydrocodone Bitart/Acetaminophen 1 tab 12/12/23 14:50 Hydrocodone/Acetaminophen (*Crx) 5-325 Mg Tablet PO Q4H PRN Pain Rated 7-10 Atorvastatin Calcium 40 mg 12/08/23 21:00 12/11/23 20:40 Atorvastatin 40 Mg Tablet PO 40 mg HS ASHLEY Administration Diazepam 5 mg 12/09/23 15:49 Diazepam (*Crx) 5 Mg Tablet PO Q8H PRN Muscle Spasm Enoxaparin Sodium 30 mg 12/10/23 09:00 12/12/23 09:38 Enoxaparin 30 Mg/0.3 Ml Syringe SUB-Q 30 mg DAILY ASHLEY Administration Ferrous Sulfate 325 mg 12/11/23 10:35 12/12/23 09:39 Ferrous Sulfate [address] PO 325 mg DAILY ASHLEY Administration Hydroxyzine Pamoate 50 mg 12/09/23 15:49
[2023-12-12 18:07] LABS: Hematocrit 26.8 % (42.0-52.0); Hemoglobin 8.5 g/dL (14.0-18.0)
[2023-12-12 18:20] LABS: Lactate Dehydrogenase 253 U/L (120-246)
[2023-12-12 19:36] LABS: Iron 11 ug/dL (49-181)
[2023-12-12 19:41] LABS: Folic Acid 3.2 ng/mL (2.76->20)
[2023-12-12 19:47] LABS: Percent Iron Saturation 7 % (20-50)
[2023-12-12] MEDS: ATORVASTATIN 40 MG TABLET PO (20:02)
[2023-12-12] MEDS: MELATONIN 3 MG TABLET PO (20:02)
[2023-12-12 20:08] LABS: Thyroid Stimulating Hormone Reflex 0.618 uIU/mL (0.465-4.68)
[2023-12-12 22:00] VITALS: BP 136/65; PULSE 71; RESP 16; TEMP 37.1; O2SAT 96
[2023-12-13 00:38] LABS: Hematocrit 24.9 % (42.0-52.0)
[2023-12-13 06:00] VITALS: BP 144/68; PULSE 67; RESP 17; TEMP 36.7; O2SAT 96
[2023-12-13 06:47] LABS: Hematocrit 25.8 % (42.0-52.0); Hemoglobin 8.3 g/dL (14.0-18.0); Mean Corpuscular HGB Conc 32.2 g/dl (32-36); Mean Corpuscular Hemoglobin 30.9 pg (26-34); Mean Corpuscular Volume 95.9 fl (80-100); Mean Platelet Volume 9.3 fl (7.4-10.4); Platelet Count Result 156 k/mm3 (150-375); Red Blood Count 2.69 M/mm3 (4.6-6.20); Red Cell Distribution Width 13.8 % (11.5-14.5); White Blood Count 5.6 K/mm3 (4.5-10.0)
[2023-12-13 06:56] LABS: Anion Gap 5 mmol/L (8-16); Blood Urea Nitrogen 17 mg/dL (9-20); Calcium 7.4 mg/dL (8.4-10.2); Carbon Dioxide 27 mmol/L (22-30); Chloride 104 mmol/L (98-107); Estimated CRCL calculation 121 ml/min; Estimated Glomerular Filt Rate > 60; Glucose 93 mg/dL (65-110); Potassium 3.4 mmol/L (3.4-5.0); Sodium 136 mmol/L (137-145)
[2023-12-13 08:20] LABS: Magnesium 2.3 mg/dL (1.6-2.3)
[2023-12-13] MEDS: ACETAMINOPHEN 325 MG TABLET 650 MG PO (09:27)
[2023-12-13] MEDS: POTASSIUM CHLORIDE 20 MEQ PACKET (FOR LIQUID) 40 MEQ PO (09:35)
--- NOTE | 2023-12-13 09:35 | PM.PNORT ---
Progress Note: A&P Assessment and Plan (1) Intertrochanteric fracture of left femur: Qualifiers: Encounter type: initial encounter Fracture type: closed Fracture alignment: displaced Qualified Code(s): S72.142A - Displaced intertrochanteric fracture of left femur, initial encounter for closed fracture Code(s): S72.142A - Displaced intertrochanteric fracture of left femur, initial encounter for closed fracture Status: Acute Assessment and Plan: POD #4: INSERTION GAMMA SHABNAM LEFT HIP Continue PT/OT. WBAT. Walker. HIGH FALL RISK. Continue pain control. Ice Hip. Protect skin. DVT prophylaxis with Lovenox. SCDs. Incentive Spirometry Use reviewed. Monitor Dressing. Change daily. Bowel Regimen. Dispo: SNF pending progress with PT/OT and medical stability. Follow up arranged. (2) Closed fracture of left hip: Qualifiers: Encounter type: initial encounter Qualified Code(s): S72.002A - Fracture of unspecified part of neck of left femur, initial encounter for closed fracture Code(s): S72.002A - Fracture of unspecified part of neck of left femur, initial encounter for closed fracture Status: Acute (3) CVA (cerebral vascular accident): Code(s): I63.9 - Cerebral infarction, unspecified Status: Acute (4) Dysphagia: Code(s): R13.10 - Dysphagia, unspecified Status: Acute Assessment and Plan: Thickened liquids Plan Reviewed history, exam, radiographs and current labs with attending MD and covering surgeon, Dr. Couch, who agrees with current plan as indicated above. No further recommendations from Dr. Couch at this time. Subjective Subjective Date/Time Seen: 12/13/23 09:35 Post Op day: 4 Interval history: POD #4: INSERTION GAMMA SHABNAM LEFT HIP Patient awake, alert. Sitting up in chair. Slow progress with PT/OT. Improvement in pain. Exam Const: General: comfortable and no acute distress Orientation/consciousness: patient oriented x3 Limitations: no limitations Resp: Effort & Inspection: normal respiratory effort Cardio: Rate: regular rate Rhythm: regular rhythm GI: Inspection: non-distended Skin: General skin exam: normal color and wounds noted (incision left hip C/D/I ) Wounds: wounds noted (incision left hip C/D/I ) Neuro: General: patient oriented x3 Extrem: Left lower extremity: hip/thigh Details: tenderness Location: of the hip Location: laterally and anteriorly, swelling (thigh soft ) Location: of the hip (lateral. ), abnormal ROM (limitations with internal/external rotation and flexion/extension due to recent surgical intervention ) and other (incision lateral hip c/d/i. ), knee Details: normal to inspection and normal ROM; no tenderness and no swelling, lower leg (Negative Saqib's Sign ) Details: no edema, ankle (+ankle dorsiflexion/plantarflexion ) Details: normal to inspection, no edema and normal ROM; no tenderness, no swelling and no warmth and foot Details: normal capillary refill, toes with normal ROM, vascular exam Details: dorsalis pedis pulse present and motor-sensory exam light-touch normal in all toes; no tenderness, no ecchymosis and no crepitus Psych: Mental Status: mental status grossly normal Affect: normal affect Objective Data Vital Signs Vital Signs: Vital Signs - 24 hr 12/12/23 09:40 12/12/23 14:00 12/12/23 20:00 Temperature 36.8 C Pulse Rate 97 Respiratory Rate 18 Blood Pressure 144/70 H Pulse Oximetry 97 Oxygen Delivery Room Air Room Air 12/12/23 22:00 12/13/23 06:00 Temperature 37.1 C 36.7 C Pulse Rate 71 67 Respiratory Rate 16 17 Blood Pressure 136/65 144/68 H Pulse Oximetry 96 96 Oxygen Delivery Intake/Output Intake/Output: Intake & Output 12/10/23 12/11/23 12/12/23 12/13/23 23:59 23:59 23:59 23:59 Intake Total 0640 3180 1200 20 Output Total 531 950 Balance 2215 2230 1200 20 Meds/Results Medications: Active Medications Generic Name Dose Rout
[2023-12-13] MEDS: polyethylene glycoL 3350 17 GM POWD.PACK PO (09:38)
[2023-12-13] MEDS: FOLIC ACID 1 MG/0.2 ML INJ IV PUSH (09:39)
[2023-12-13] MEDS: CYANOCOBALAMIN INJ 1,000 MCG/ML VIAL 1000 MCG IM (09:44)
[2023-12-13] MEDS: SENNA/DOCUSATE SODIUM TABLET 2 TAB PO (09:47)
[2023-12-13] MEDS: ENOXAPARIN 30 MG/0.3 ML SYRINGE SUB-Q (09:47)
[2023-12-13] MEDS: FERROUS SULFATE 325 MG TABLET DR PO (09:49)
[2023-12-13] MEDS: LORATADINE 10 MG TABLET PO (09:49)
[2023-12-13] MEDS: PANTOPRAZOLE SODIUM IV 40 MG VIAL IV PUSH (09:49)
--- NOTE | 2023-12-13 11:29 | PM.DS ---
DS: Admitting Diagnosis Discharge Date 12/13/23 Admitting Diagnosis Hip pain DS: Discharge Diagnosis Discharge Diagnosis (1) Intertrochanteric fracture of left femur: Qualifiers: Encounter type: initial encounter Fracture type: closed Fracture alignment: displaced Qualified Code(s): S72.142A - Displaced intertrochanteric fracture of left femur, initial encounter for closed fracture Code(s): S72.142A - Displaced intertrochanteric fracture of left femur, initial encounter for closed fracture Status: Acute (2) Anemia: Code(s): D64.9 - Anemia, unspecified Status: Acute (3) History of duodenal ulcer: Code(s): Z87.19 - Personal history of other diseases of the digestive system Status: Acute (4) Dysphagia: Code(s): R13.10 - Dysphagia, unspecified Status: Acute (5) B12 deficiency anemia: Code(s): D51.9 - Vitamin B12 deficiency anemia, unspecified Status: Acute DS: Summary Hospital Course Reason for hospitalization: 78yo male with 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 Please see H&P for details Hospital Course: Patient presents with left hip pain after a fall and found to have an acute IT fracture of the proximal left femur. Ortho consulted and patient brought to the OR on 12/09 for insertion of a left femur gamma lilian. He tolerated the procedure well. He worked with PT/OT. Pain managed per ortho. Patient was anemic last admission but Hgb 12 on admission here. Hgb did drop to 8 range and there remained stable.? No evidence of acute blood loss. Iron was low at 11 with TIBC 147 and TSat 7%. Ferritin 1210. B12 level low at 192. Folate low end of normal at 3.2. TSH normal. [place] anemia related to fracture, recent surgery and B12 deficiency. Iron studies more consistent with anemia of chronic disease. He was treated with iron supplement. He does have a history of bleeding duodenal ulcer June 2023. He was treated with Protonix IV. Patient has a hx of CVA and with complaints of dysphagia. Speech therapy evaluation showing patient could swallow safely with regular diet and mildly thick liquids. Diet was adjusted. He overall did well and was able to be discharged on 12/13/23. Status at Discharge Cognitive/behavioral status at discharge: stable Time Spent with Patient Time attestation: Total time spent providing and/or coordinating discharge services: 38 minutes Time spent: Greater than 30 minutes Exam Narrative: AF 98.0 144/68 67 17 96% ra Gen - NARD Chest - clear anteriorly and in the flanks. CV - RRR S1/S2 Abd - Soft, NT/ND, Positive BS Ext - Left hip dressing clean/dry/intact Psych - Nml mood and affect Skin - Warm and dry DS: Data Data Completed and Pending Labs on day of discharge: Labs from last 24 hours 12/13/23 12/13/23 12/12/23 06:11 00:30 17:50 WBC 5.6 RBC 2.69 L Hgb 8.3 L 8.0 L 8.5 L Hct 25.8 L 24.9 L 26.8 L MCV 95.9 MCH 30.9 MCHC 32.2 RDW 13.8 Plt Count 156 MPV 9.3 Sodium 136 L Potassium 3.4 Chloride 104 Carbon Dioxide 27 Anion Gap 5 L BUN 17 Creatinine 0.50 L Estim Creat Clear Calc 121 Estimated GFR > 60 Glucose 93 Calcium 7.4 L Magnesium 2.3 Iron 11 L TIBC 147 L % Saturation 7 L Ferritin 1210.00 H Lactate Dehydrogenase 253 H Vitamin B12 192.0 L Folate 3.2 TSH (Reflex) 0.618 12/12/23 11:50 WBC RBC Hgb 8.1 L Hct 25.5 L MCV MCH MCHC RDW Plt Count MPV Sodium Potassium Chloride Carbon Dioxide Anion Gap BUN Creatinine Estim Creat Clear Calc Estimated GFR Glucose Calcium Magnesium Iron TIBC % Saturation Ferritin Lactate Dehydr
[2023-12-13 12:32] LABS: SARS-CoV-2 RNA PCR Negative (Negative)
== END 2023-12-13 15:15 | DRG 482 ==
LOC: ANHED 18:09 → ANH3MEDSUR 18:40
PROVIDERS: Orthopaedic Surgery; Physician Assistant; Student in an Organized Health Care Education/Training Program; Admitting Provider Internal Medicine; Emergency Provider Emergency Medicine; PCP Family Medicine; Visit Provider Internal Medicine
PROC: 0QS736Z Reposition Left Upper Femur with Intramedullary Internal Fixation Device, Percutaneous Approach (ICD-10-PCS; CPT 27245; principal; 2023-12-09 14:00)
DX: S72.142A Displaced intertrochanteric fracture of left femur, initial encounter for closed fracture (principal); I10 Essential (primary) hypertension; D64.89 Other specified anemias; D51.9 Vitamin B12 deficiency anemia, unspecified; D63.8 Anemia in other chronic diseases classified elsewhere; E78.5 Hyperlipidemia, unspecified; R13.10 Dysphagia, unspecified; W18.30XA Fall on same level, unspecified, initial encounter; Z20.822 Contact with and (suspected) exposure to COVID-19; Z86.73 Personal history of transient ischemic attack (TIA), and cerebral infarction without residual deficits; Z87.11 Personal history of peptic ulcer disease
CPT/HCPCS: 36415; 70450; 71045; 73502; 80048; 80053; 82607; 82728; 82746; 83540; 83550; 83615; 83735; 84443; 84484; 85014; 85018; 85025; 85027; 85055; 85610; 85730; 86850; 86900; 86901; 87635; 92610; 93005; 97110; 97161; 97166; 97530; 97535; 99199; 99285; A9270; C1713; C9113; G0378; J0690; J1100; J1170; J1650; J2371; J2405; J2704; J3010; J3420; J7030; J7120

== ENCOUNTER 2023-12-17 05:27 | Emergency (ER) | payer MEDICARE, OTHER, SELFPAY ==
--- NOTE | ~2023-12-17 | XR_ITS ---
AP view of the pelvis and AP and lateral views of the left hip Clinical history: Pain COMPARISON: 12/07/2023 Findings: Patient is status post interval ORIF of intertrochanteric fracture of the proximal left fem ur. Osseous and orthopedic hardware alignment appears satisfactory. No hardware complication is evide nt. Bilateral hip joint spaces are preserved. Soft tissues are unremarkable. Impression: Status post interval ORIF of intertrochanteric fracture of the proximal femur. Osseous and orthopedic hardware alignment appears satisfactory. Reviewed, dictated and finalized at location M. ER OPERATOR Impression: Status post interval ORIF of intertrochanteric fracture of the proximal femur. Osseous and orthopedic hardware alignment appears satisfactory.
[2023-12-17 05:28] VITALS: BP 114/74; PULSE 75; RESP 25; TEMP 36.3; O2SAT 95
[2023-12-17 05:39] VITALS: PULSE 77
--- NOTE | 2023-12-17 07:28 | ED.FALL ---
HPI - Fall General Chief Complaint: Fall Stated Complaint: FALL; ON BLOOD THINNERS Time Seen by Provider: 12/17/23 06:51 History of Present Illness HPI Narrative: 78-year-old male present to the emergency department for evaluation of left hip pain. Patient had recent hip surgery. Patient reports last night he was disorientated and when attempting to get out of bed he had a fall landing on his left hip. Patient denies striking his head denies loss of consciousness. Patient states the pain is current left hip is not worse than it has been. Related Data Home Medications Medication Instructions Recorded Confirmed acetaminophen 325 mg tablet 650 mg PO Q6H PRN Pain (Scale 07/19/23 12/08/23 (Tylenol) Score 4-6) atorvastatin 40 mg tablet 40 mg PO HS 07/23/23 12/07/23 cetirizine 10 mg tablet (Zyrtec) 10 mg PO DAILY 07/23/23 12/07/23 melatonin 3 mg tablet 3 mg PO HS 07/23/23 12/07/23 sennosides 8.6 mg-docusate sodium 1 tablet PO PRN PRN Constipation 07/23/23 12/07/23 50 mg tablet (Senna with Docusate Sodium) docusate sodium 100 mg capsule 100 mg PO DAILY 12/07/23 12/07/23 (Colace) Allergies Allergy/AdvReac Type Severity Reaction Status Date / Time No Known Allergies Allergy Verified 12/09/23 14:00 Review of Systems Review of Systems: All systems reviewed & are unremarkable except as noted in HPI and below PMFSH Past Medical History Medical History (Updated 12/17/23 @ 09:32 by Tramaine Galvan MD) Anemia B12 deficiency anemia Cerebrovascular accident (06/2023) Right parietal ischemic stroke with possible hemorrhagic conversion. Duodenal ulcer hemorrhage (06/2023) Gastroesophageal reflux disease Surgical History Surgical History History of cataract extraction with lens replacement Family History Family History Other Family history unknown Social History Social History Social History: Surrogate medical decision maker: Ross Sesay, spouse. Code status: Full code. 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 Spiritual care concerns: No Exam Narrative: APPEARANCE: Well appearing, no pain, no distress, well-nourished. HEAD: normocephalic, atraumatic. EYES: PERRLA/EOMI, conjunctivae clear. NOSE: Normal no drainage NECK: Supple. No adenopathy, no masses. RESPIRATORY: Airway patent, respirations nonlabored. Clear to auscultation bilaterally, no rales, rhonchi, wheezing. CARDIOVASCULAR: Regular rate and rhythm without murmurs rubs or gallops. ABDOMINAL: Soft, nontender, nondistended, normal bowel sounds MUSCULOSKELETAL: Pulses intact, dressing intact, tenderness to left hip with range of motion NEURO: Alert. Cranial nerves II through XII intact. Grossly intact SKIN: Warm, dry. Normal Color. Left hip surgical incision is well appearing with dressing intact Course Course Emergency Course: 78-year-old male presenting to the emergency department for evaluation of left hip pain. X-ray showed no acute fracture dislocation. Patient denies any change in his pain. Patient was updated on results of his workup but was comfortable plan for discharge back to his care facility. All questions concerns were addressed. Vital Signs Vital signs: Vital Signs Temperature 97.4 F L 12/17/23 05:28 Pul
[2023-12-17 07:30] VITALS: BP 146/72; PULSE 72; RESP 20; O2SAT 98
[2023-12-17] MEDS: HYDROcodone/acetaminophen (*CRX) 5-325 MG TABLET 1 TAB PO (07:34)
[2023-12-17 08:14] VITALS: BP 139/63; PULSE 74; RESP 15; O2SAT 99
[2023-12-17 09:59] VITALS: BP 152/68; PULSE 73; RESP 16; TEMP 36.8; O2SAT 95
== END 2023-12-17 10:55 ==
PROVIDERS: Emergency Provider Emergency Medicine; PCP Family Medicine
DX: S79.912A Unspecified injury of left hip, initial encounter (principal); Z98.890 Other specified postprocedural states; K21.9 Gastro-esophageal reflux disease without esophagitis; D51.9 Vitamin B12 deficiency anemia, unspecified; Z86.73 Personal history of transient ischemic attack (TIA), and cerebral infarction without residual deficits; Z96.1 Presence of intraocular lens; Z98.49 Cataract extraction status, unspecified eye; Z79.01 Long term (current) use of anticoagulants; W06.XXXA Fall from bed, initial encounter
CPT/HCPCS: 73502; 99283; A9270